=== PATIENT | female | born 1965 | race Caucasian/White ===

== ENCOUNTER → 2017-01-08 | Outpatient (CLI) | payer MEDICARE | LOC: RAD 15:55 | PROVIDERS: ATTEND Internal Medicine Critical Care Medicine | DX: R91.1 Solitary pulmonary nodule (principal) | CPT/HCPCS: 71250 ==

== ENCOUNTER → 2017-05-14 | Outpatient (CLI) | payer MEDICARE ==
--- NOTE | 2017-05-14 11:50 | RADIOLOGY REPORT (SQ) ---
EXAM DESCRIPTION: CT CHEST WITHOUT COMPLETED DATE/TIME: 05/14/2017 11:09 am REASON FOR STUDY: SOLITARY PULMONARY NODULE R91.1 SOLITARY PULMONARY NODULE COMPARISON: 01/08/2017 TECHNIQUE: CT scan performed of the chest without intravenous contrast. Images reviewed with lung, soft tissue and bone windows. Reconstructed coronal and sagittal MPR images reviewed. All images st ored on PACS. All CT scanners at this facility use dose modulation, iterative reconstruction, and/or weight based d osing when appropriate to reduce radiation dose to as low as reasonably achievable (ALARA). [facility]: Dose Right [facility]: CareDose [facility]: Dose Right [facility]: Teradose 4D [facility]: Nualight RADIATION DOSE: Up-to-date CT equipment and radiation dose reduction techniques were employed. CTDIv ol: 6.0 mGy. DLP: 248 mGy-cm. mGy. LIMITATIONS: No technical limitations. FINDINGS: LUNGS AND PLEURA: Bilateral chronic appearing changes are identified which appear stable. The previously described nodule in the right upper lobe is again identified and is less apparent serge n on the previous study. Again this could represent parenchymal scarring. On the current study ther e is some associated ground-glass opacities which may represent an acute process superimposed on the chronic underlying changes. There is a focal ground-glass opacity in the right upper lung field tera uring 7.8 mm best seen on image number 17 which was not apparent on the previous study. There is a 2 nd focal ground-glass opacity in the left mid lung field measuring 13.4 mm best seen on image number 27 which was not apparent on the previous study. A 3rd ground-glass opacity is identified in the lef t upper lung field anteriorly measuring 10.5 mm which is best seen on image number 30 and was not brian arent on the previous study. There are couple other tiny pulmonary nodules which appears stable. No acute consolidations or pleural effusions are identified. HILAR AND MEDIASTINAL STRUCTURES: No identified masses or abnormal nodes. No obvious aneurysm. HEART AND VASCULAR STRUCTURES: No aneurysm. No pericardial effusion. UPPER ABDOMEN: No significant findings. Limited exam. THYROID AND OTHER SOFT TISSUES: No masses. No adenopathy. BONES: No significant finding. HARDWARE: None in the chest. OTHER: No other significant findings. IMPRESSION: Scattered ground-glass opacities as noted above. These may represent an acute process a nd a followup chest CT scan in 6 to 12 months is recommended for further evaluation. No consolidatio ns or pleural effusions are identified. Other findings as noted above. COMMENT: Fleischner Criteria for Ground Glass Nodules: >6mm ground glass single nodule: CT 6-12 mo, then CT every 2 yr until 5 yr TECHNICAL DOCUMENTATION: JOB ID: [id number] Quality ID # [id number]: Final reports with documentation of one or more dose reduction techniques (e.g., Au tomated exposure control, adjustment of the mA and/or kV according to patient size, use of iterative reconstruction technique) 2010 [email or web address]- All Rights Reserved
== END ==
LOC: RAD 09:59
PROVIDERS: ATTEND Internal Medicine Critical Care Medicine
DX: J44.9 Chronic obstructive pulmonary disease, unspecified (principal); R91.1 Solitary pulmonary nodule; R91.8 Other nonspecific abnormal finding of lung field; R06.09 Other forms of dyspnea; Z80.1 Family history of malignant neoplasm of trachea, bronchus and lung; Z87.01 Personal history of pneumonia (recurrent); R09.02 Hypoxemia; Z72.0 Tobacco use
CPT/HCPCS: 71250

== ENCOUNTER 2019-08-21 19:11 | Inpatient (IN) | payer MEDICARE ==
[2019-08-21] MEDS ORDERED: CEFTRIAXONE 2 GM/D5W RTU 2 GM/50 ML RTUPB IV ONE (19:21)
[2019-08-21] MEDS ORDERED: AZITHROMYCIN 250 MG TABLET PO ONE (19:21)
[2019-08-21 19:44] LABS: ABSOLUTE LYMPHOCYTES (AUTO) 0.4 10^3/uL (0.5-4.7); ABSOLUTE MONOCYTES (AUTO) 0.4 10^3/uL (0.1-1.4); ABSOLUTE NEUT (AUTO) 4.7 10^3/uL (1.7-8.2); BASOPHILS % (AUTO) 0.5 % (0-2); EOSINOPHILS % (AUTO) 0.4 % (0-6); HEMATOCRIT 36.1 % (36.0-47.0); LYMPHOCYTES % (AUTO) 7.2 % (13-45); MEAN CORPUSCULAR HEMOGLOBIN 24.6 pg (27.0-33.4); MEAN CORPUSCULAR HGB CONC 30.4 g/dL (32.0-36.0); MEAN CORPUSCULAR VOLUME 81 fl (80-97); MONOCYTES % (AUTO) 7.9 % (3-13); PLATELET COUNT 233 10^3/uL (150-450); RED BLOOD COUNT 4.46 10^6/uL (3.72-5.28); RED CELL DISTRIBUTION WIDTH 15.5 % (11.5-14.0); TOTAL CELLS COUNTED % (AUTO) 100 %; WHITE BLOOD COUNT 5.6 10^3/uL (4.0-10.5)
[2019-08-21 20:11] LABS: ALBUMIN 3.1 g/dL (3.5-5.0); ALKALINE PHOSPHATASE 87 U/L (38-126); ASPARTATE AMINO TRANSFERASE 31 U/L (14-36); BILIRUBIN,DIRECT 0.1 mg/dL (0.0-0.4); BILIRUBIN,TOTAL 0.2 mg/dL (0.2-1.3); BLOOD UREA NITROGEN 13 mg/dL (7-20); CALCIUM 8.1 mg/dL (8.4-10.2); CHLORIDE 87 mmol/L (98-107); GLUCOSE 134 mg/dL (75-110); TOTAL PROTEIN 5.3 g/dL (6.3-8.2)
[2019-08-21 20:19] LABS: ANION GAP 2 (5-19)
[2019-08-21 20:21] LABS: ARTERIAL BLOOD H2CO3 3.55 mmol/L (1.05-1.35); ARTERIAL BLOOD HCO3 41.4 mmol/L (20-24); ARTERIAL BLOOD O2 SATURATION 98.2 % (94-98); ARTERIAL BLOOD PO2 154.4 mmHg (80-100); CARBON DIOXIDE 40 mmol/L (22-30)
[2019-08-21 20:23] LABS: ARTERIAL BLOOD FIO2 9L; NT PRO BNP 4350 pg/mL (5-900)
[2019-08-21 20:24] LABS: ARTERIAL BLOOD PCO2 117.8 mmHg (35-45); ARTERIAL BLOOD PH 7.16 (7.35-7.45)
[2019-08-21 20:27] LABS: TROPONIN I < 0.012 ng/mL
--- NOTE | 2019-08-21 20:48 | RADIOLOGY REPORT (SQ) ---
EXAM DESCRIPTION: CLINICAL HISTORY: 54 years Female, cough/sob COMPARISON: Chest x-ray 05/16/2015. Chest 05/14/2017. FINDINGS: Mild cardiomegaly which has increased since previous study and is probably significant because of the underlying hyperinflation. No suspicious mediastinal widening. Hyperinflation consistent with COPD/emphysema. There is mild right lower lobe infiltrate. There is mild left perihilar possibly superior segment of left lower lobe infiltrate. Previous CT chest demonstrated view focal interstitial infiltrates. IMPRESSION: 1. Cardiomegaly. Underlying COPD/emphysema. Infiltrates in the right lower lobe and left perihilar region. These could represent infectious pneumonia or more chronic interstitial process. CT may be more accurate for evaluation of lung parenchyma. 2. 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 New finding since 2014.
[2019-08-21] MEDS ORDERED: FUROSEMIDE INJ/PF 40 MG/4 ML SDV IV ONE (21:36)
[2019-08-21 21:58] LABS: APPEARANCE,URINE CLEAR; BILIRUBIN,URINE NEGATIVE (NEGATIVE); COLOR,URINE STRAW; GLUCOSE, URINE NEGATIVE (NEGATIVE); KETONES,URINE NEGATIVE (NEGATIVE); LEUKOCYTE ESTERASE,URINE NEGATIVE (NEGATIVE); NITRITE,URINE NEGATIVE (NEGATIVE); PROTEIN,URINE NEGATIVE (NEGATIVE); URINE SPECIFIC GRAVITY 1.004; UROBILINOGEN,URINE NEGATIVE mg/dL (<2.0)
[2019-08-21] MEDS ORDERED: HYDRALAZINE HCL INJ/PF 20 MG/1 ML SDV IV PRN (22:43)
[2019-08-21] MEDS ORDERED: LACTULOSE SYRUP 20 GM/30 ML UDCUP PO ONE (22:43)
[2019-08-21] MEDS ORDERED: MAG HYDROX/AL HYDROX/SIMETH SUSP 30 ML UDCUP PO PRN (22:44)
--- NOTE | 2019-08-21 22:59 | ER Document Report ---
ED General - General Chief Complaint: Breathing Difficulty Stated Complaint: RESP DISTRESS Time Seen by Provider: 08/21/19 19:16 Mode of Arrival: Medic Information source: Patient TRAVEL OUTSIDE OF THE [place] IN LAST 30 DAYS: No - HPI Notes: Patient is brought in by medic with respiratory distress. Patient is a chronic smoker with COPD. She was found by paramedics to have his O2 saturation of 78% on room air with elevated CO2. Patient was complaining of severe shortness of breath. On arrival to the emergency department patient states that she is f eeling better. In route she did receive multiple treatments and CPAP as well as Solu-Medrol and magnesium. Patient denies any history of congestive heart failure. She denies any pain. She states she has felt weak. Her symptoms have been constant and severe. They are worse with exertion and better with rest. There is no known radiation of the symptoms. She has had an increased of her baseline cough. No fevers. - Related Data Allergies/Adverse Reactions: No Known Allergies Allergy (Verified 02/18/14 03:01) Past Medical History - General Information source: Patient - Social History Smoking Status: Current Every Day Smoker Frequency of alcohol use: None Drug Abuse: None Family History: Reviewed & Not Pertinent, Hypertension Patient has suicidal ideation: No Patient has homicidal ideation: No - Past Medical History Cardiac Medical History: Reports: Hx Hypertension Denies: Hx Coronary Artery Disease, Hx Heart Attack Pulmonary Medical History: Reports: Hx Asthma, Hx Bronchitis, Hx COPD, Hx Pneumonia Neurological Medical History: Reports: Hx Seizures - ONCE 3 YEARS AGO. Denies: Hx Cerebrovascular Accident Renal/ Medical History: Reports: Hx Kidney Stones Musculoskeletal Medical History: Reports Hx Arthritis Psychiatric Medical History: Reports: Hx Bipolar Disorder Past Surgical History: Reports: Hx Section, Hx Orthopedic Surgery - right knee. Denies: Hx Hysterectomy, Hx Pacemaker - Immunizations Hx Diphtheria, Pertussis, Tetanus Vaccination: No Hx Pneumococcal Vaccination: 01/12/13 Review of Systems - Review of Systems Constitutional: Malaise, Weakness Cardiovascular: denies: Chest pain, Palpitations Respiratory: Cough, Short of breath Gastrointestinal: denies: Abdominal pain, Diarrhea, Vomiting -: Yes All other systems reviewed and negative Physical Exam - Vital signs Vitals: Resp Pulse Ox 20 99 08/21/19 19:31 08/21/19 19:31 Interpretation: Tachycardic, Hypoxic - General General appearance: Alert In distress: Mild - HEENT Head: Normocephalic, Atraumatic Eyes: Normal Pupils: PERRL - Respiratory Respiratory status: Respiratory distress Chest status: Nontender Breath sounds: Decreased air movement, Rhonchi, Wheezing Chest palpation: Normal - Cardiovascular Rhythm: Tachycardia Heart sounds: Normal auscultation Murmur: No - Abdominal Inspection: Normal Distension: No distension Bowel sounds: Normal Tenderness: Nontender Organomegaly: No organomegaly - Back Back: Normal, Nontender - Extremities General upper extremity: Normal inspection, Nontender, Normal color, Normal ROM, Normal temperature General lower extremity: Normal inspection, Nontender, Normal color, Normal ROM, Normal temperature, Normal weight bearing. No: Alejo's sign - Neurological Neuro grossly intact: Yes Cognition: Normal Orientation: AAOx4 Sprague Coma Scale Eye Opening: Spontaneous Jackeline Coma Scale Verbal: Oriented Sprague Coma Scale Motor: Obeys Commands Sprague Coma Scale Total: 15 Speech: Normal Motor strength normal: LUE, RUE, LLE, RLE Sensory: Normal - Psychological Associated symptoms: Normal affect, Normal mood - Skin Skin Temperature: Warm Skin Moisture: Dry Skin Color: Normal Course - Re-evaluation Re-evalutation: 08/21/19 23:03 Patient arrived with some mild tachycardia and tachypnea. She was better after the treatments in the ambulance. Patient still had wheezing in all hunt. She had a pH of 7.16. Her CO2 was 117. She was mentating normally with a saturation of 94% on 4 L. However due to the severe hypercapnia I placed the patient on BiPAP. She also had a mixed picture of infectious versus possible heart failure. It is possible she may also have both processes. Therefore I have treated the patient with Lasix and antibiotics. I have discussed the case with the hospitalist who is accepted her for admission. I have ordered a CTA of the chest and this is currently pending. Hospitalist is aware and will follow up on the results. Patient states that she is currently feeling much better. She is doing well on BiPAP with good oxygen saturations. She is hemodynamically stable. - Vital Signs Vital signs: Temp Pulse Resp BP Pulse Ox 98.2 F 18 133/72 H 100 08/21/19 19:46 08/21/19 21:35 08/21/19 21:35 08/21/19 21:35 - Laboratory Result Diagrams: 08/21/19 19:21 08/21/19 19:21 Laboratory results interpreted by me: 08/21/19 08/21/19 08/21/19 19:21 19:21 19:21 Hgb 11.0 L MCH 24.6 L MCHC 30.4 L RDW 15.5 H Lymph % (Auto) 7.2 L Absolute Lymphs (auto) 0.4 L Seg Neutrophils % 84.0 H Carbonic Acid ABG pH ABG pCO2 ABG pO2 ABG HCO3 ABG Total CO2 ABG O2 Saturation Sodium 129.1 L Chloride 87 L Carbon Dioxide 40 H* Anion Gap 2 L Glucose 134 H POC Glucose Lactic Acid Calcium 8.1 L NT-Pro-B Natriuret Pep 4350 H Total Protein 5.3 L Albumin 3.1 L 08/21/19 08/21/19 08/21/19 19:21 20:04 20:33 Hgb MCH MCHC RDW Lymph % (Auto) Absolute Lymphs (auto) Seg Neutrophils % Carbonic Acid 3.55 H ABG pH 7.16 L* ABG pCO2 117.8 H* ABG pO2 154.4 H ABG HCO3 41.4 H ABG Total CO2 45.0 H ABG O2 Saturation 98.2 H Sodium Chloride Carbon Dioxide Anion Gap Glucose POC Glucose 140 H Lactic Acid 0.6 L Calcium NT-Pro-B Natriuret Pep Total Protein Albumin - Diagnostic Test Radiology reviewed: Image reviewed, Reports reviewed - EKG Interpretation by Me EKG shows normal: Sinus rhythm Rate: Tachycardia - 105 Rhythm: NSR Hartline/QRS: RBBB - incomplete Critical Care Note - Critical Care Note Total time excluding time spent on procedures (mins): 50 Comments: Approximately 50 minutes of critical care time were spent on this patient. This included multiple reassessments. Including discussing the case with patient and family. It including discussing the case with consultants. It included reviewing laboratories and images. It also included reviewing old records. Discharge - Discharge Clinical Impression: COPD exacerbation Respiratory failure Qualifiers: Chronicity: acute Respiratory failure complication: hypercapnia Qualified Code(s): J96.02 - Acute respiratory failure with hypercapnia Condition: Serious Disposition: ADMITTED INPATIENT Admitting Provider: Guanaco (Hospitalist) Unit Admitted: [facility]
--- NOTE | 2019-08-21 23:22 | RADIOLOGY REPORT (SQ) ---
EXAM DESCRIPTION: CT CHEST ANGIOGRAPHY WITHOUT THEN WITH IV CONTRAST, three-dimensional reconstructions COMPLETED DATE/TME: 08/21/2019 21:37 CLINICAL HISTORY: 54 years, Female, sob/cough This exam was performed according to our departmental dose-optimization program which includes automated exposure control, adjustment of the mA and/or kVp according to patient size and/or use of iterative reconstruction technique where applicable. Compared to CT chest dated 05/14/2017. FINDINGS: Thyroid is within normal limits. Aorta is mildly atherosclerotic without significant evidence for aneurysm or dissection. Pulmonary arteries are well opacified with no significant filling defects in the pulmonary arterial tree to suggest acute pulmonary embolism. No significant pericardial effusions. Trace layering right pleural effusion. Visualized upper abdominal organs are unremarkable. Evaluation of the lung parenchyma demonstrates extensive diffuse emphysematous changes. No suspicious lung nodule or mass. No consolidations to suggest pneumonia. Mild right basilar atelectatic changes. IMPRESSION: No acute pulmonary embolism. Trace right pleural effusion. Extensive emphysematous changes.
[2019-08-21] MEDS ORDERED: FLUTICASONE NASAL SPRAY 50 MCG/SPRY 120 SPRAY/16 GM NASL ONE (23:30)
[2019-08-21] MEDS ORDERED: PREDNISONE 20 MG TABLET PO ONE (23:30)
[2019-08-21] MEDS ORDERED: FLUTICASONE NASAL SPRAY 50 MCG/SPRY 120 SPRAY/16 GM ONE (23:39)
--- NOTE | 2019-08-22 00:25 | EKG REPORT ---
SEVERITY:- ABNORMAL ECG - SINUS TACHYCARDIA INCOMPLETE RIGHT BUNDLE BRANCH BLOCK : Confirmed by: Sarika Tafoya MD 22-Aug-2019 00:24:40
[2019-08-22 02:10] LABS: URINE AMPHETAMINES SCREEN NEGATIVE; URINE BARBITURATES SCREEN NEGATIVE; URINE BENZODIAZEPINES SCREEN NEGATIVE; URINE COCAINE SCREEN NEGATIVE; URINE MARIJUANA (THC) SCREEN UNCONFIRMED POSITIVE; URINE METHADONE SCREEN NEGATIVE; URINE PHENCYCLIDINE SCREEN NEGATIVE
[2019-08-22 02:31] LABS: ARTERIAL BLOOD BASE EXCESS 12.2 mmol/L; ARTERIAL BLOOD H2CO3 2.52 mmol/L (1.05-1.35); ARTERIAL BLOOD HCO3 41.6 mmol/L (20-24); ARTERIAL BLOOD O2 SATURATION 96.4 % (94-98); ARTERIAL BLOOD PH 7.31 (7.35-7.45); ARTERIAL BLOOD PO2 97.2 mmHg (80-100); ARTERIAL BLOOD TOTAL CO2 44.2 mmol/L (21-25)
[2019-08-22 02:33] LABS: ARTERIAL BLOOD FIO2 40%
[2019-08-22 02:35] LABS: ARTERIAL BLOOD PCO2 83.8 mmHg (35-45)
--- NOTE | 2019-08-22 04:22 | PDOC H&P ---
History of Present Illness Admission Date/PCP: 08/21/19 22:57 Patient complains of: Shortness of breath History of Present Illness: JULIO BACA is a 54 year old female with a past medical history of oxygen dependent COPD, tobacco dependence, bipolar hypertension and dyslipidemia. She presents with several days of shortness of breath prompting evaluation emergency room where she is found to have acute on chronic hypercapnic hypoxic respiratory failure, right lower lobe pneumonia, congestive heart failure and hyponatremia. She started on BiPAP and referred to the hospitalist for admission. She denies current medications. She admits symptom improvement on BiPAP Past Medical History Cardiac Medical History: Reports: Hypertension Denies: Coronary Artery Disease, Myocardial Infarction Pulmonary Medical History: Reports: Asthma, Bronchitis, Chronic Obstructive Pulmonary Disease (COPD), Pneumonia Neurological Medical History: Reports: Seizures - ONCE 3 YEARS AGO Musculoskeltal Medical History: Reports: Arthritis Psychiatric Medical History: Reports: Bipolar Disorder, Depression, Tobacco Dependency Hematology: Denies: Anemia Past Surgical History Past Surgical History: Reports: Section, Orthopedic Surgery - right knee Denies: Hysterectomy, Pacemaker Social History Information Source: Patient, [facility] Records Smoking Status: Current Every Day Smoker Cigarettes Packs Per Day: 0.5 Number of Years Smokin Last Time Smoked: Aug 21, 2019 Frequency of Alcohol Use: None Hx Recreational Drug Use: Yes Drugs: Marijuana Hx Prescription Drug Abuse: No - Advance Directive Resuscitation Status: Full Code Family History Family History: COPD, Hypertension Parental Family History Reviewed: Yes Children Family History Reviewed: Yes Sibling(s) Family History Reviewed.: Yes Medication/Allergy Home Medications: Bupropion HCl [Wellbutrin] 75 mg PO 10/13/11 Escitalopram Oxalate [Lexapro] 5 mg PO 10/13/11 Invega 10/13/11 Lisinopril/Hydrochlorothiazide [Zestoretic 20-12.5 mg Tablet] 1 each PO DAILY 01/11/13 Simvastatin [Zocor 40 mg Tablet] 40 mg PO QHS 01/11/13 Risperidone [Risperdal] 5 mg PO 02/15/13 Albuterol Sulfate [Albuterol Sulfate 2.5mg/3 mL] 1 vial IH Q4 PRN #30 vial 04/22/13 Albuterol Sulfate [Proair HFA Inhalation Aerosol 8.5 gm MDI] 2 puff IH Q4H PRN #1 mdi 04/22/13 Clonidine HCl [Catapres 0.2 mg Tablet] 0.2 mg PO 04/22/13 Levofloxacin [Levaquin 750 mg Tablet] 750 mg PO DAILY #5 tablet 05/17/15 Methylprednisolone [Medrol Dosepack (4 mg/Tab) 21 Tab/Dosepak] 4 mg PO ASDIR PRN #21 tab.ds.pk 05/17/15 Allergies/Adverse Reactions: No Known Allergies Allergy (Verified 02/18/14 03:01) Review of Systems ROS unobtainable: Due to mental status Physical Exam Vital Signs: Temp Pulse Resp BP Pulse Ox 97.7 F 20 163/87 H 96 08/22/19 01:15 08/22/19 01:15 08/22/19 01:15 08/22/19 01:15 Intake & Output 08/20/19 08/21/19 08/22/19 11:59 11:59 11:59 Intake Total 50 Balance 50 Weight 64.2 kg General appearance: PRESENT: cooperative, disheveled, severe distress, well- developed, other - Chronically ill-appearing, appears much older than stated age. ABSENT: well-nourished Head exam: PRESENT: atraumatic, normocephalic Eye exam: PRESENT: conjunctiva pink, EOMI, PERRLA. ABSENT: scleral icterus Ear exam: PRESENT: normal external ear exam Mouth exam: PRESENT: moist, tongue midline Neck exam: ABSENT: carotid bruit, JVD, lymphadenopathy, thyromegaly Respiratory exam: PRESENT: accessory muscle use, crackles, prolonged expiratory phas, rales, retraction, tachypnea Cardiovascular exam: PRESENT: RRR. ABSENT: diastolic murmur, rubs, systolic murmur Pulses: PRESENT: normal dorsalis pedis pul Vascular exam: PRESENT: normal capillary refill GI/Abdominal exam: PRESENT: normal bowel sounds, soft. ABSENT: distended, guarding, mass, organolmegaly, rebound, tenderness Rectal exam: PRESENT: deferred Extremities exam: PRESENT: full ROM. ABSENT: calf tenderness, clubbing, pedal edema Neurological exam: PRESENT: alert, awake, oriented to person, oriented to place, oriented to time, oriented to situation, CN II-XII grossly intact. ABSENT: motor sensory deficit Psychiatric exam: PRESENT: appropriate affect, normal mood. ABSENT: homicidal ideation, suicidal ideation Skin exam: PRESENT: dry, intact, warm. ABSENT: cyanosis, rash Results Laboratory Results: 08/21/19 19:21 08/21/19 19:21 08/21/19 08/21/19 08/21/19 19:21 19:21 19:21 WBC 5.6 RBC 4.46 Hgb 11.0 L Hct 36.1 MCV 81 MCH 24.6 L MCHC 30.4 L RDW 15.5 H Plt Count 233 Seg Neutrophils % 84.0 H Carbonic Acid 3.55 H HCO3/H2CO3 Ratio 11:1 ABG pH 7.16 L* ABG pCO2 117.8 H* ABG pO2 154.4 H ABG HCO3 41.4 H ABG O2 Saturation 98.2 H ABG Base Excess 9.0 FiO2 9L Sodium 129.1 L Potassium 5.0 Chloride 87 L Carbon Dioxide 40 H* Anion Gap 2 L BUN 13 Creatinine 0.86 Est GFR ( Amer) > 60 Glucose 134 H Lactic Acid Calcium 8.1 L Magnesium Total Bilirubin 0.2 AST 31 Alkaline Phosphatase 87 Total Protein 5.3 L Albumin 3.1 L TSH Urine Color Urine Appearance Urine pH Ur Specific Isabel Urine Protein Urine Glucose (UA) Urine Ketones Urine Blood Urine Nitrite Ur Leukocyte Esterase Urine WBC (Auto) Urine RBC (Auto) 08/21/19 08/21/19 08/21/19 19:21 19:21 20:33 WBC RBC Hgb Hct MCV MCH MCHC RDW Plt Count Seg Neutrophils % Carbonic Acid HCO3/H2CO3 Ratio ABG pH ABG pCO2 ABG pO2 ABG HCO3 ABG O2 Saturation ABG Base Excess FiO2 Sodium Potassium Chloride Carbon Dioxide Anion Gap BUN Creatinine Est GFR ( Amer) Glucose Lactic Acid 0.6 L Calcium Magnesium 2.6 H Total Bilirubin AST Alkaline Phosphatase Total Protein Albumin TSH 0.51 Urine Color Urine Appearance Urine pH Ur Specific Isabel Urine Protein Urine Glucose (UA) Urine Ketones Urine Blood Urine Nitrite Ur Leukocyte Esterase Urine WBC (Auto) Urine RBC (Auto) 08/21/19 08/22/19 21:46 01:50 WBC RBC Hgb Hct MCV MCH MCHC RDW Plt Count Seg Neutrophils % Carbonic Acid 2.52 H HCO3/H2CO3 Ratio 16:1 ABG pH 7.31 L ABG pCO2 83.8 H* ABG pO2 97.2 ABG HCO3 41.6 H ABG O2 Saturation 96.4 ABG Base Excess 12.2 FiO2 40% Sodium Potassium Chloride Carbon Dioxide Anion Gap BUN Creatinine Est GFR ( Amer) Glucose Lactic Acid Calcium Magnesium Total Bilirubin AST Alkaline Phosphatase Total Protein Albumin TSH Urine Color STRAW Urine Appearance CLEAR Urine pH 6.0 Ur Specific Isabel 1.004 Urine Protein NEGATIVE Urine Glucose (UA) NEGATIVE Urine Ketones NEGATIVE Urine Blood NEGATIVE Urine Nitrite NEGATIVE Ur Leukocyte Esterase NEGATIVE Urine WBC (Auto) 1 Urine RBC (Auto) 1 08/21/19 19:21 Troponin I < 0.012 NT-Pro-B Natriuret Pep 4350 H Impressions: Chest X-Ray 08/21/19 19:20 IMPRESSION: 1. Cardiomegaly. Underlying COPD/emphysema. Infiltrates in the right lower lobe and left perihilar region. These could represent infectious pneumonia or more chronic interstitial process. CT may be more accurate for evaluation of lung parenchyma. 2. 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 New finding since 2014. Chest/Abdomen CTA 08/21/19 21:37 IMPRESSION: No acute pulmonary embolism. Trace right pleural effusion. Extensive emphysematous changes. Assessment and Plan - Diagnosis (1) PNA (pneumonia) Is this a current diagnosis for this admission?: Yes Plan: Pneumonia care set deployed, empiric antibiotics, supplemental oxygen with BiPAP. Follow-up CBC and blood culture (2) Respiratory failure Qualifiers: Chronicity: acute Respiratory failure complication: hypercapnia Qualified Code(s): J96.02 - Acute respiratory failure with hypercapnia Is this a current diagnosis for this admission?: Yes Plan: Severe acute on chronic, hypercapnic and hypoxic respiratory failure. BiPAP, albuterol and Atrovent, Solu-Medrol, flutter valve and incentive spirometry (3) Congestive heart failure Is this a current diagnosis for this admission?: Yes Plan: Suspect severe pulmonary hypertension and cor pulmonale. Follow-up echo (4) COPD exacerbation Is this a current diagnosis for this admission?: Yes Plan: Secondary to #1 (5) Hyponatremia Is this a current diagnosis for this admission?: Yes Plan: Appears hypovolemic, hypotonic, IV fluid challenge, follow-up chemistry - Time Time Spent with patient: 25-34 minutes - Inpatient Certification Medical Necessity: Need Close Monitoring Due to Risk of Patient Decompensation
[2019-08-22 05:52] LABS: BLOOD UREA NITROGEN 10 mg/dL (7-20); CALCIUM 8.2 mg/dL (8.4-10.2); CHLORIDE 86 mmol/L (98-107); GLUCOSE 109 mg/dL (75-110); POTASSIUM 5.3 mmol/L (3.6-5.0)
[2019-08-22 06:00] LABS: ANION GAP 5 (5-19)
[2019-08-22] MEDS: HEPARIN SOD (PORCINE) 5,000 UNIT/ML 1 ML VIAL SUBCUT SCH ×3 (06:01→21:41)
[2019-08-22] MEDS: ACETAMINOPHEN 325 MG TABLET PO PRN ×3 (06:05→19:00)
[2019-08-22 06:23] LABS: CARBON DIOXIDE 41 mmol/L (22-30)
[2019-08-22 06:47] LABS: ABSOLUTE LYMPHOCYTES (AUTO) 0.2 10^3/uL (0.5-4.7); ABSOLUTE MONOCYTES (AUTO) 0.1 10^3/uL (0.1-1.4); BASOPHILS % (AUTO) 0.1 % (0-2); HEMATOCRIT 36.7 % (36.0-47.0); HEMOGLOBIN 11.3 g/dL (12.0-15.5); MEAN CORPUSCULAR HEMOGLOBIN 24.7 pg (27.0-33.4); MEAN CORPUSCULAR HGB CONC 30.9 g/dL (32.0-36.0); MEAN CORPUSCULAR VOLUME 80 fl (80-97); MONOCYTES % (AUTO) 3.3 % (3-13); PLATELET COUNT 257 10^3/uL (150-450); RED CELL DISTRIBUTION WIDTH 15.6 % (11.5-14.0); SEGMENTED NEUTROPHILS % (AUTO) 89.6 % (42-78); TOTAL CELLS COUNTED % (AUTO) 100 %
[2019-08-22 07:14] LABS: WHITE BLOOD COUNT 2.3 10^3/uL (4.0-10.5)
[2019-08-22] MEDS ORDERED: INFLUENZA QUAD (6MOS+) 2019-20 VAC 0.5 ML SYR IM ONE ×2 (08:52→15:15)
[2019-08-22] MEDS: FLUTICASONE NASAL SPRAY 50 MCG/SPRY 120 SPRAY/16 GM NASL SCH ×2 (09:19→21:41)
[2019-08-22] MEDS: PREDNISONE 20 MG TABLET PO SCH ×2 (09:19→17:26)
[2019-08-22] MEDS: PSYLLIUM SEED-SF 5.85 GM PACKET PO SCH (09:20)
--- NOTE | 2019-08-22 15:07 | PDOC PROGRESS REPORT ---
Subjective Progress Note for:: 08/22/19 Subjective:: BiPAP mask is leaking. She actually appears fairly comfortable. She is surprisingly mentating clearly despite PCO2 of 83. Reason For Visit: RESP FAILURE Physical Exam Vital Signs: Temp Pulse Resp BP Pulse Ox 98.1 F 99 17 149/69 H 90 L 08/22/19 08:51 08/22/19 08:51 08/22/19 12:23 08/22/19 08:51 08/22/19 12:23 Intake & Output 08/21/19 08/22/19 08/23/19 06:59 06:59 06:59 Intake Total 50 Balance 50 Weight 56.8 kg General appearance: PRESENT: cooperative, mild distress, thin Head exam: PRESENT: atraumatic, normocephalic Eye exam: PRESENT: conjunctiva pink, EOMI. ABSENT: scleral icterus Ear exam: PRESENT: normal external ear exam. ABSENT: bleeding, drainage Mouth exam: PRESENT: other - BiPAP mask in place Respiratory exam: PRESENT: prolonged expiratory phas, rhonchi, symmetrical, tachypnea, wheezes - Bilateral especially expiratory. ABSENT: stridor Cardiovascular exam: PRESENT: RRR, +S1, +S2 GI/Abdominal exam: PRESENT: normal bowel sounds, soft. ABSENT: distended, guarding, tenderness Extremities exam: PRESENT: full ROM. ABSENT: calf tenderness, pedal edema Musculoskeletal exam: PRESENT: ambulatory, normal inspection Neurological exam: PRESENT: alert, awake, oriented to person, oriented to place, oriented to time, oriented to situation, CN II-XII grossly intact Psychiatric exam: PRESENT: flat affect. ABSENT: agitated, anxious Focused psych exam: ABSENT: delusional, restlessness Results Laboratory Results: 08/22/19 06:06 08/22/19 05:15 08/21/19 08/21/19 08/21/19 19:21 19:21 19:21 WBC 5.6 RBC 4.46 Hgb 11.0 L Hct 36.1 MCV 81 MCH 24.6 L MCHC 30.4 L RDW 15.5 H Plt Count 233 Seg Neutrophils % 84.0 H Carbonic Acid 3.55 H HCO3/H2CO3 Ratio 11:1 ABG pH 7.16 L* ABG pCO2 117.8 H* ABG pO2 154.4 H ABG HCO3 41.4 H ABG O2 Saturation 98.2 H ABG Base Excess 9.0 FiO2 9L Sodium 129.1 L Potassium 5.0 Chloride 87 L Carbon Dioxide 40 H* Anion Gap 2 L BUN 13 Creatinine 0.86 Est GFR ( Amer) > 60 Glucose 134 H Lactic Acid Calcium 8.1 L Magnesium Total Bilirubin 0.2 AST 31 Alkaline Phosphatase 87 Total Protein 5.3 L Albumin 3.1 L TSH Urine Color Urine Appearance Urine pH Ur Specific [place] Urine Protein Urine Glucose (UA) Urine Ketones Urine Blood Urine Nitrite Ur Leukocyte Esterase Urine WBC (Auto) Urine RBC (Auto) 08/21/19 08/21/19 08/21/19 19:21 19:21 20:33 WBC RBC Hgb Hct MCV MCH MCHC RDW Plt Count Seg Neutrophils % Carbonic Acid HCO3/H2CO3 Ratio ABG pH ABG pCO2 ABG pO2 ABG HCO3 ABG O2 Saturation ABG Base Excess FiO2 Sodium Potassium Chloride Carbon Dioxide Anion Gap BUN Creatinine Est GFR ( Amer) Glucose Lactic Acid 0.6 L Calcium Magnesium 2.6 H Total Bilirubin AST Alkaline Phosphatase Total Protein Albumin TSH 0.51 Urine Color Urine Appearance Urine pH Ur Specific [place] Urine Protein Urine Glucose (UA) Urine Ketones Urine Blood Urine Nitrite Ur Leukocyte Esterase Urine WBC (Auto) Urine RBC (Auto) 08/21/19 08/22/19 08/22/19 21:46 01:50 05:15 WBC Cancelled RBC Cancelled Hgb Cancelled Hct Cancelled MCV Cancelled MCH Cancelled MCHC Cancelled RDW Cancelled Plt Count Cancelled Seg Neutrophils % Cancelled Carbonic Acid 2.52 H HCO3/H2CO3 Ratio 16:1 ABG pH 7.31 L ABG pCO2 83.8 H* ABG pO2 97.2 ABG HCO3 41.6 H ABG O2 Saturation 96.4 ABG Base Excess 12.2 FiO2 40% Sodium Potassium Chloride Carbon Dioxide Anion Gap BUN Creatinine Est GFR ( Amer) Glucose Lactic Acid Calcium Magnesium Total Bilirubin AST Alkaline Phosphatase Total Protein Albumin TSH Urine Color STRAW Urine Appearance CLEAR Urine pH 6.0 Ur Specific [place] 1.004 Urine Protein NEGATIVE Urine Glucose (UA) NEGATIVE Urine Ketones NEGATIVE Urine Blood NEGATIVE Urine Nitrite NEGATIVE Ur Leukocyte Esterase NEGATIVE Urine WBC (Auto) 1 Urine RBC (Auto) 1 08/22/19 08/22/19 05:15 06:06 WBC 2.3 L D RBC 4.60 Hgb 11.3 L Hct 36.7 MCV 80 MCH 24.7 L MCHC 30.9 L RDW 15.6 H Plt Count 257 Seg Neutrophils % 89.6 H Carbonic Acid HCO3/H2CO3 Ratio ABG pH ABG pCO2 ABG pO2 ABG HCO3 ABG O2 Saturation ABG Base Excess FiO2 Sodium 132.3 L Potassium 5.3 H Chloride 86 L Carbon Dioxide 41 H* Anion Gap 5 BUN 10 Creatinine 0.74 Est GFR ( Amer) > 60 Glucose 109 Lactic Acid Calcium 8.2 L Magnesium Total Bilirubin AST Alkaline Phosphatase Total Protein Albumin TSH Urine Color Urine Appearance Urine pH Ur Specific [place] Urine Protein Urine Glucose (UA) Urine Ketones Urine Blood Urine Nitrite Ur Leukocyte Esterase Urine WBC (Auto) Urine RBC (Auto) 08/21/19 19:21 Troponin I < 0.012 NT-Pro-B Natriuret Pep 4350 H Impressions: Chest X-Ray 08/21/19 19:20 IMPRESSION: 1. Cardiomegaly. Underlying COPD/emphysema. Infiltrates in the right lower lobe and left perihilar region. These could represent infectious pneumonia or more chronic interstitial process. CT may be more accurate for evaluation of lung parenchyma. 2. 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 New finding since 2014. Chest/Abdomen CTA 08/21/19 21:37 IMPRESSION: No acute pulmonary embolism. Trace right pleural effusion. Extensive emphysematous changes. Assessment and Plan - Diagnosis (1) PNA (pneumonia) Is this a current diagnosis for this admission?: Yes (2) Respiratory failure Qualifiers: Chronicity: acute Respiratory failure complication: hypercapnia Qualified Code(s): J96.02 - Acute respiratory failure with hypercapnia Is this a current diagnosis for this admission?: Yes (3) Congestive heart failure Qualifiers: Heart failure type: unspecified Is this a current diagnosis for this admission?: Yes (4) COPD exacerbation Is this a current diagnosis for this admission?: Yes (5) Hyponatremia Is this a current diagnosis for this admission?: Yes (6) Hypertension Qualifiers: Hypertension type: essential hypertension Qualified Code(s): I10 - Essential (primary) hypertension Is this a current diagnosis for this admission?: Yes - Summary Assessment: * Pneumonia-pneumonia order set instituted. IV antibiotics, steroids, supplemental oxygen as well as nebulizer treatments. * Acute on chronic respiratory failure with hypoxia and hypercapnia-PCO2 was 118 on admission. This morning she in fact is resting comfortably and mentating fairly clearly with a PCO2 of 83. She is wearing her BiPAP. This likely indicates her baseline PCO2 above 50. Continue current treatment plan. * COPD exacerbation-see plan above * Hyponatremia-IV fluids. Monitor sodium. * Congestive heart failure-echocardiogram has been ordered. Will better be able to delineate etiology and treatment plan once this information is available. * Hypertension-continue lisinopril. She may benefit from beta-blockade for her congestive heart failure. - Time Time Spent with patient: 15-24 minutes Medications reviewed and adjusted accordingly: Yes Anticipated discharge: Home
[2019-08-22] MEDS: NICOTINE 21 MG/24 HR PATCH.TD24 TD SCH (15:32)
[2019-08-22] MEDS: CEFTRIAXONE 1 GM/D5W RTU 1 GM/50 ML RTUPB IV SCH (20:39)
[2019-08-22] MEDS: AZITHROMYCIN 500 MG in DEXTROSE 5%-WATER 250 ML IV SCH (21:33)
[2019-08-23] MEDS: ACETAMINOPHEN 325 MG TABLET PO PRN (03:29)
[2019-08-23] MEDS: HEPARIN SOD (PORCINE) 5,000 UNIT/ML 1 ML VIAL SUBCUT SCH ×3 (06:16→21:23)
[2019-08-23] MEDS: NICOTINE 21 MG/24 HR PATCH.TD24 TD SCH (09:05)
[2019-08-23] MEDS: PSYLLIUM SEED-SF 5.85 GM PACKET PO SCH (09:05)
[2019-08-23] MEDS: PREDNISONE 20 MG TABLET PO SCH ×2 (09:05→17:47)
[2019-08-23] MEDS: FLUTICASONE NASAL SPRAY 50 MCG/SPRY 120 SPRAY/16 GM NASL SCH ×2 (09:05→21:22)
[2019-08-23] MEDS: METOPROLOL SUCCINATE 25 MG TAB.SR.24H PO SCH (09:37)
[2019-08-23] MEDS: LISINOPRIL 10 MG TABLET PO SCH (09:37)
[2019-08-23] MEDS: CITALOPRAM HYDROBROMIDE 20 MG TABLET PO SCH (09:37)
[2019-08-23] MEDS: BUPROPION HCL 100 MG TABLET PO SCH ×3 (09:37→17:47)
[2019-08-23] MEDS: ARIPIPRAZOLE 5 MG TABLET PO SCH (09:37)
[2019-08-23] MEDS: RISPERIDONE 1 MG TABLET PO SCH ×2 (09:37→21:23)
[2019-08-23] MEDS: TIOTROPIUM BROMIDE DPI 5 CAP/KIT (18 MCG/CAP) IH SCH (09:38)
[2019-08-23] MEDS ORDERED: (PENDING PHARMACY ID) (Citalopram Hydrobromide [Celexa 40 Mg Tablet] 40 MG) PO SCH (10:00)
[2019-08-23] MEDS ORDERED: (PENDING PHARMACY ID) (Lisinopril [Prinivil 40 Mg Tablet] 20 MG) PO SCH (10:00)
[2019-08-23] MEDS ORDERED: (PENDING PHARMACY ID) (Risperidone [Risperdal] 3 MG) PO SCH (10:00)
[2019-08-23] MEDS: IPRATROPIUM/ALBUTEROL 0.5-2.5 MG/3 ML AMPUL NEB SCH ×2 (13:43→20:42)
--- NOTE | 2019-08-23 14:16 | PDOC PROGRESS REPORT ---
Subjective Progress Note for:: 08/23/19 Subjective:: The patient is resting comfortably. BiPAP mask is displaced as she is sipping fluids. She reports feeling better and is beginning to question when she can go home. Reason For Visit: RESP FAILURE Physical Exam Vital Signs: Temp Pulse Resp BP Pulse Ox 97.7 F 77 18 146/79 H 96 08/23/19 11:44 08/23/19 11:44 08/23/19 11:44 08/23/19 11:44 08/23/19 11:44 Intake & Output 08/22/19 08/23/19 08/24/19 06:59 06:59 06:59 Intake Total 50 2410 Output Total 1300 Balance 50 1110 Weight 56.8 kg 58.3 kg General appearance: PRESENT: no acute distress, cooperative, well-developed Mouth exam: PRESENT: moist, tongue midline Teeth exam: PRESENT: poor dentation Respiratory exam: PRESENT: prolonged expiratory phas, wheezes - Still with faint expiratory wheezes bilaterally. ABSENT: rales, rhonchi Cardiovascular exam: PRESENT: RRR, +S1, +S2 GI/Abdominal exam: PRESENT: normal bowel sounds, soft. ABSENT: distended, tenderness Extremities exam: PRESENT: full ROM. ABSENT: joint swelling, pedal edema Musculoskeletal exam: PRESENT: normal inspection Neurological exam: PRESENT: alert, awake, oriented to person, oriented to place, oriented to time, oriented to situation, CN II-XII grossly intact Psychiatric exam: PRESENT: appropriate affect. ABSENT: agitated, anxious Focused psych exam: ABSENT: delusional, restlessness Results Laboratory Results: 08/22/19 06:06 08/22/19 05:15 08/21/19 21:46 Clean Catch Midstream Urine Culture - Final Mixed Urogenital Indira 08/21/19 19:21 Troponin I < 0.012 NT-Pro-B Natriuret Pep 4350 H Impressions: Chest X-Ray 08/21/19 19:20 IMPRESSION: 1. Cardiomegaly. Underlying COPD/emphysema. Infiltrates in the right lower lobe and left perihilar region. These could represent infectious pneumonia or more chronic interstitial process. CT may be more accurate for evaluation of lung parenchyma. 2. 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 New finding since 2014. Chest/Abdomen CTA 08/21/19 21:37 IMPRESSION: No acute pulmonary embolism. Trace right pleural effusion. Extensive emphysematous changes. Assessment and Plan - Diagnosis (1) PNA (pneumonia) Is this a current diagnosis for this admission?: Yes (2) Respiratory failure Qualifiers: Chronicity: acute Respiratory failure complication: hypercapnia Qualified Code(s): J96.02 - Acute respiratory failure with hypercapnia Is this a current diagnosis for this admission?: Yes (3) Congestive heart failure Qualifiers: Heart failure type: unspecified Is this a current diagnosis for this admission?: Yes (4) COPD exacerbation Is this a current diagnosis for this admission?: Yes (5) Hyponatremia Is this a current diagnosis for this admission?: Yes (6) Hypertension Qualifiers: Hypertension type: essential hypertension Qualified Code(s): I10 - Essential (primary) hypertension Is this a current diagnosis for this admission?: Yes (7) Hyperkalemia Is this a current diagnosis for this admission?: Yes - Plan Summary Summary: * Pneumonia-pneumonia order set instituted. IV antibiotics, steroids, supplemental oxygen as well as nebulizer treatments. * Acute on chronic respiratory failure with hypoxia and hypercapnia-PCO2 was 118 on admission. This morning she in fact is resting comfortably and mentating fairly clearly with a PCO2 of 83. She is wearing her BiPAP. This likely indicates her baseline PCO2 above 50. Continue current treatment plan. * COPD exacerbation-see plan above * Hyponatremia-IV fluids. Monitor sodium. * Congestive heart failure-echocardiogram has been ordered. Will better be able to delineate etiology and treatment plan once this information is available. * Hypertension-continue lisinopril. She may benefit from beta-blockade for her congestive heart failure. 08/23/2019-we will continue to wean from BiPAP. I have ordered nasal cannula with a repeat blood gas in approximately 2 to 3 hours. The patient should remain on BiPAP overnight for tonight. We will continue gentle fluids to monitor her sodium and possibly correct the hyperkalemia. We will continue to monitor electrolytes. The echocardiogram results are not available to better delineate congestive failure. I did add low-dose beta-kishor to her lisinopril for congestive heart failure. Nebulizers and steroids for her COPD. I discussed adjusting oxygen flow to keep oxygen saturation between 88 and 92%. - Time Time Spent with patient: 15-24 minutes Medications reviewed and adjusted accordingly: Yes Anticipated discharge: Home with Homehealth
[2019-08-23] MEDS: CEFTRIAXONE 1 GM/D5W RTU 1 GM/50 ML RTUPB IV SCH (17:48)
[2019-08-23 18:13] LABS: ARTERIAL BLOOD H2CO3 2.31 mmol/L (1.05-1.35); ARTERIAL BLOOD HCO3 43.6 mmol/L (20-24); ARTERIAL BLOOD O2 SATURATION 93.5 % (94-98); ARTERIAL BLOOD PH 7.37 (7.35-7.45); ARTERIAL BLOOD PO2 72.9 mmHg (80-100)
[2019-08-23 18:14] LABS: ARTERIAL BLOOD FIO2 3L
[2019-08-23 18:15] LABS: ARTERIAL BLOOD PCO2 76.8 mmHg (35-45)
--- NOTE | 2019-08-23 20:33 | XCELERA REPORT ---
[address] [address] Transthoracic Echocardiogram Report Name: JULIO BACA Age: 54 yrs Gender: Female : 1965 Patient Status: Inpatient Patient Location: [address] [place] [address] Study Date: 08/22/2019 10:29 AM Height: 65 in Weight: 141 lb BSA: 1.7 m2 Procedure: A two-dimensional transthoracic echocardiogram with color flow and Doppler was performed. The study was technically limited with all images being suboptimal in quality. Images were not obtained from all of the standard acoustic windows due to the limited scope of the study. Reason For Study: systolic murmur History: systolic murmur. Ordering Physician: BENTON DUTTA Performed By: Kira Mccord Interpretation Summary The left ventricle is normal in size. There is normal left ventricular wall thickness. No 'True 2 chamber ' views obtained.Hence cannot comment on the apical and basal inferior ,and the apical and basal anterior trevino.The mid anterior ,the mid inferior , and the rest of the LV waaaalls contract normally.The LVEF in these limited views is normal and greater than 60%. Doppler measurements suggest normal left ventricular diastolic function There is no thrombus. The right ventricle is moderately dilated. The right ventricular systolic function is mild to moderately reduced. The right atrium is mild to moderately dilated. The left atrial size is normal. The interatrial septum is intact with no evidence for an atrial septal defect. There is no mitral valve stenosis. There is no evidence of mitral valve prolapse. There is no vegetation seen on the mitral valve. There is a mild amount of mitral regurgitation There is no aortic valvular vegetation. There is aortic sclerosis without aortic stenosis. There is no LVOT obstruction. No aortic regurgitation is present. There is no tricuspid stenosis. There is a moderate to severe amount of tricuspid regurgitation There is servere pulmonary hypertension by echo rvsp IS ATLEAST 67 MM OF hG , WITH raMEAN OF AT LEAST 20. There is no pulmonic valvular stenosis. There is a mild amount of pulmonic regurgitation The aortic root is normal size. The inferior vena cava appeared dilated and did not change with respiration (RAP > 20 mmHg) There is no pericardial effusion. MMode/2D Measurements & Calculations RVDd: 3.3 cm LVIDd: 4.5 cm FS: 29.3 % Ao root diam: 2.0 cm IVSd: 0.81 cm LVIDs: 3.2 cm EDV(Teich): 92.3 ml Ao root area: 3.2 cm2 LVPWd: 0.81 cm ESV(Teich): 40.3 ml LA dimension: 3.3 cm EF(Teich): 56.3 % Doppler Measurements & Calculations MV E max samantha: MV P1/2t max samantha: Ao V2 max: LV V1 max P.5 cm/sec 116.5 cm/sec 181.2 cm/sec 6.2 mmHg MV A max samantha: MV P1/2t: 58.7 msec Ao max PG: LV V1 max: 97.2 cm/sec MVA(P1/2t): 3.7 cm2 13.1 mmHg 124.4 cm/sec MV E/A: 1.2 MV dec slope: 580.8 cm/sec2 MV dec time: 0.19 sec PA V2 max: TR max samantha: MV P1/2t-pr_phl: 120.9 cm/sec 342.1 cm/sec 58.7 msec PA max P.8 mmHgTR max P.8 mmHg Left Ventricle The left ventricle is normal in size. There is normal left ventricular wall thickness. No 'True 2 chamber ' views obtained.Hence cannot comment on the apical and basal inferior ,and the apical and basal anterior trevino.The mid anterior ,the mid inferior , and the rest of the LV waaaalls contract normally.The LVEF in these limited views is normal and greater than 60%. Doppler measurements suggest normal left ventricular diastolic function. There is no thrombus. There is no ventricular septal defect visualized. Right Ventricle The right ventricle is moderately dilated. The right ventricular systolic function is mild to moderately reduced. Atria The right atrium is mild to moderately dilated. The left atrial size is normal. The interatrial septum is intact with no evidence for an atrial septal defect. There is no Doppler evidence for an interatrial shunt. Mitral Valve There is no evidence of mitral valve prolapse. There is no vegetation seen on the mitral valve. There is no mitral valve stenosis. There is a mild amount of mitral regurgitation. Aortic Valve There is no aortic valvular vegetation. There is aortic sclerosis without aortic stenosis. There is no LVOT obstruction. No aortic regurgitation is present. Tricuspid Valve There is no tricuspid stenosis. There is a moderate to severe amount of tricuspid regurgitation. There is servere pulmonary hypertension by echo. rvsp IS ATLEAST 67 MM OF hG , WITH raMEAN OF AT LEAST 20. Pulmonic Valve There is no pulmonic valvular stenosis. There is a mild amount of pulmonic regurgitation. Great Vessels The aortic root is normal size. The inferior vena cava appeared dilated and did not change with respiration (RAP > 20 mmHg). Effusions There is no pericardial effusion. : BENTON DUTTA, Sarika
[2019-08-23] MEDS: BUDESONIDE NEB 0.5 MG/2 ML AMPUL NEB SCH (20:42)
[2019-08-23] MEDS: AZITHROMYCIN 500 MG in DEXTROSE 5%-WATER 250 ML IV SCH (21:24)
[2019-08-23] MEDS ORDERED: MONTELUKAST SODIUM 10 MG TABLET PO SCH (22:00)
[2019-08-24] MEDS: IPRATROPIUM/ALBUTEROL 0.5-2.5 MG/3 ML AMPUL NEB SCH ×3 (02:09→13:55)
[2019-08-24] MEDS: HEPARIN SOD (PORCINE) 5,000 UNIT/ML 1 ML VIAL SUBCUT SCH ×2 (06:30→13:20)
[2019-08-24 06:46] LABS: HEMATOCRIT 37.6 % (36.0-47.0); HEMOGLOBIN 11.7 g/dL (12.0-15.5); MEAN CORPUSCULAR HEMOGLOBIN 24.8 pg (27.0-33.4); MEAN CORPUSCULAR HGB CONC 31.2 g/dL (32.0-36.0); MEAN CORPUSCULAR VOLUME 79 fl (80-97); PLATELET COUNT 317 10^3/uL (150-450); RED BLOOD COUNT 4.73 10^6/uL (3.72-5.28); RED CELL DISTRIBUTION WIDTH 15.7 % (11.5-14.0)
[2019-08-24 07:05] LABS: BLOOD UREA NITROGEN 11 mg/dL (7-20); CALCIUM 8.7 mg/dL (8.4-10.2); CHLORIDE 91 mmol/L (98-107); GLUCOSE 89 mg/dL (75-110); POTASSIUM 4.6 mmol/L (3.6-5.0)
[2019-08-24 07:29] LABS: ANION GAP 3 (5-19); CARBON DIOXIDE 41 mmol/L (22-30)
[2019-08-24 07:49] LABS: ABSOLUTE LYMPHOCYTES# (MANUAL) 1.1 10^3/uL (0.5-4.7); ABSOLUTE MONOCYTES # (MANUAL) 0.4 10^3/uL (0.1-1.4); ANISOCYTOSIS SLIGHT; BASOPHILS % (MANUAL) 0 % (0-2); EOSINOPHILS % (MANUAL) 0 % (0-6); LYMPHOCYTES % (MANUAL) 22 % (13-45); MONOCYTES % (MANUAL) 8 % (3-13); OVALOCYTES SLIGHT; PLATELET COMMENT ADEQUATE; POIKILOCYTOSIS SLIGHT; SEGMENTED NEUTROPHILS % (MAN) 70 % (42-78); TOTAL CELLS COUNTED 100
[2019-08-24 07:50] LABS: WHITE BLOOD COUNT 5.2 10^3/uL (4.0-10.5)
[2019-08-24] MEDS: BUDESONIDE NEB 0.5 MG/2 ML AMPUL NEB SCH (08:37)
[2019-08-24] MEDS: FLUTICASONE NASAL SPRAY 50 MCG/SPRY 120 SPRAY/16 GM NASL SCH (10:02)
[2019-08-24] MEDS: TIOTROPIUM BROMIDE DPI 5 CAP/KIT (18 MCG/CAP) IH SCH (10:03)
[2019-08-24 10:07] VITALS: BP 153/69
[2019-08-24] MEDS: BUPROPION HCL 100 MG TABLET PO SCH ×2 (10:07→13:20)
[2019-08-24] MEDS: METOPROLOL SUCCINATE 25 MG TAB.SR.24H PO SCH (10:07)
[2019-08-24] MEDS: PREDNISONE 20 MG TABLET PO SCH (10:07)
[2019-08-24] MEDS: CITALOPRAM HYDROBROMIDE 20 MG TABLET PO SCH (10:08)
[2019-08-24] MEDS: RISPERIDONE 1 MG TABLET PO SCH (10:08)
[2019-08-24] MEDS: ARIPIPRAZOLE 5 MG TABLET PO SCH (10:08)
[2019-08-24] MEDS: LISINOPRIL 10 MG TABLET PO SCH (10:08)
[2019-08-24] MEDS: NICOTINE 21 MG/24 HR PATCH.TD24 TD SCH (10:10)
[2019-08-24] MEDS: PSYLLIUM SEED-SF 5.85 GM PACKET PO SCH (10:11)
[2019-08-24] MEDS ORDERED: ALBUTEROL SULFATE 0.083% NEB 2.5 MG/3 ML AMPUL NEB PRN ×2 (11:09→11:30)
--- NOTE | 2019-08-24 15:46 | PDOC DISCHARGE SUMMARY ---
Impression - Admit/DC Date/PCP Admission Date/Primary Care Provider: 08/21/19 22:57 Discharge Date: 08/24/19 - Discharge Diagnosis (1) PNA (pneumonia) Is this a current diagnosis for this admission?: Yes (2) Respiratory failure Is this a current diagnosis for this admission?: Yes (3) Congestive heart failure Is this a current diagnosis for this admission?: Yes (4) Cor pulmonale Is this a current diagnosis for this admission?: Yes (5) COPD exacerbation Is this a current diagnosis for this admission?: Yes (6) Hyponatremia Is this a current diagnosis for this admission?: Yes (7) Hypertension Is this a current diagnosis for this admission?: Yes (8) Hyperkalemia Is this a current diagnosis for this admission?: Yes - Assessment Summary: * Pneumonia-pneumonia order set instituted. IV antibiotics, steroids, supplemental oxygen as well as nebulizer treatments. * Acute on chronic respiratory failure with hypoxia and hypercapnia-PCO2 was 118 on admission. This morning she in fact is resting comfortably and mentating fairly clearly with a PCO2 of 83. She is wearing her BiPAP. This likely indicates her baseline PCO2 above 50. Continue current treatment plan. * COPD exacerbation-see plan above * Hyponatremia-IV fluids. Monitor sodium. * Congestive heart failure-echocardiogram has been ordered. Will better be able to delineate etiology and treatment plan once this information is available. * Hypertension-continue lisinopril. She may benefit from beta-blockade for her congestive heart failure. 08/23/2019-we will continue to wean from BiPAP. I have ordered nasal cannula with a repeat blood gas in approximately 2 to 3 hours. The patient should remain on BiPAP overnight for tonight. We will continue gentle fluids to monitor her sodium and possibly correct the hyperkalemia. We will continue to monitor electrolytes. The echocardiogram results are not available to better delineate congestive failure. I did add low-dose beta-kishor to her lisinopril for congestive heart failure. Nebulizers and steroids for her COPD. I discussed adjusting oxygen flow to keep oxygen saturation between 88 and 92%. - Additional Information Resuscitation Status: Full Code Discharge Diet: Cardiac Discharge Activity: Activity As Tolerated, Balance Activity w/Rest, Weigh Daily Referrals: Dr. Chapis Jean MD [Other] - 10/05/19 9:15 am RICHARD SHARP PA-C [NO LOCAL MD] - 08/30/19 3:00 pm Prescriptions: Cefuroxime Axetil [Ceftin 500 mg Tablet] 1 tab PO BID 7 Days #14 tablet Prednisone [Deltasone 20 mg Tablet] 20 mg PO BID 5 Days #10 tablet Fluticasone Propionate [Flonase Nasal Shelly 50 Mcg/Shelly 16 gm] 2 spray NASL Q12 #1 bottle Metoprolol Succinate [Toprol Xl 25 mg Tab.sr] 25 mg PO DAILY 14 Days #14 tab.sr.24h Albuterol Sulfate [Ventolin 0.083% Neb 2.5 mg/3 mL Ampul] 1 vial NEB RTQ6 PRN #100 PRN Reason: Azithromycin [Zithromax 250 mg Tablet] 250 mg PO DAILY #5 tablet Home Medications: Albuterol Sulfate [Proair HFA Inhalation Aerosol 8.5 gm MDI] 1 puff IH Q4HP PRN 08/22/19 Aripiprazole [Abilify 5 mg Tablet] 5 mg PO DAILY 08/22/19 Bupropion HCl [Wellbutrin Xl 300mg 24hr Tablet] 300 mg PO DAILY 08/22/19 Citalopram Hydrobromide [Celexa 40 mg Tablet] 40 mg PO DAILY 08/22/19 Fluticasone/Umeclidin/Vilanter [Trelegy 100-62.5-25 Mcg Ellipta 14 Dose/Dpi] 2 puff IH BID 08/22/19 Lisinopril [Prinivil 40 mg Tablet] 20 mg PO DAILY 08/22/19 Montelukast Sodium [Singulair 10 mg Tablet] 10 mg PO QHS 08/22/19 Risperidone [Risperdal] 3 mg PO Q12 08/22/19 Albuterol Sulfate [Ventolin 0.083% Neb 2.5 mg/3 mL Ampul] 1 vial NEB RTQ6 PRN #100 08/24/19 Azithromycin [Zithromax 250 mg Tablet] 250 mg PO DAILY #5 tablet 08/24/19 Cefuroxime Axetil [Ceftin 500 mg Tablet] 1 tab PO BID 7 Days #14 tablet 08/24/19 Fluticasone Propionate [Flonase Nasal Shelly 50 Mcg/Shelly 16 gm] 2 spray NASL Q12 #1 bottle 08/24/19 Metoprolol Succinate [Toprol Xl 25 mg Tab.sr] 25 mg PO DAILY 14 Days #14 tab.sr.24h 08/24/19 Nicotine [Nicoderm 21 mg/24 Hr Transderm Patch] 1 each TD DAILY patch.td24 08/24/19 Prednisone [Deltasone 20 mg Tablet] 20 mg PO BID 5 Days #10 tablet 08/24/19 Psyllium Seed [Metamucil-Sf Powder 5.85 gm Packet] 1 packet PO DAILY packet 08/24/19 History of Present Illiness History of Present Illness: JULIO BACA is a 54 year old female with severe chronic obstructive pulmonary disease presented with hypoxic hypercapnic acute on chronic respiratory failure requiring BiPAP. She was also found to have infiltrates by chest x-ray and no elevation in her white blood cell count. She seemed to be responding to BiPAP and her PCO2 of 118 began to improve. Surprisingly for such an elevated PCO2 she was mentating quite clearly. She was referred to the hospital service for admission. Hospital Course Hospital Course: The patient had a fairly unremarkable hospital course. Further evaluation of her condition by echocardiogram revealed significant pulmonary hypertension with cor pulmonale. In addition a set of PFTs showed severe obstructive pulmonary disease. She has improved and is back to her baseline oxygen. She in fact feels that she is back to her chronic state. Her agrees that discharge to home is appropriate at this time. Physical Exam Vital Signs: Temp Pulse Resp BP Pulse Ox 97.1 F 88 18 153/69 H 93 08/24/19 07:45 08/24/19 14:00 08/24/19 13:56 08/24/19 07:45 08/24/19 13:56 Intake & Output 08/23/19 08/24/19 08/25/19 06:59 06:59 06:59 Intake Total 2410 640 480 Output Total 1300 1700 Balance 1110 -1060 480 Weight 58.3 kg 54.4 kg General appearance: PRESENT: no acute distress, cooperative, thin, well- developed Mouth exam: PRESENT: moist, neck supple, tongue midline Teeth exam: PRESENT: poor dentation Respiratory exam: PRESENT: prolonged expiratory phas, symmetrical, unlabored, wheezes - Very faint sporadic wheeze. ABSENT: rales, rhonchi, tachypnea Cardiovascular exam: PRESENT: RRR, +S1, +S2 GI/Abdominal exam: PRESENT: normal bowel sounds, soft. ABSENT: distended, tenderness Extremities exam: ABSENT: pedal edema Neurological exam: PRESENT: alert, awake, oriented to person, oriented to place, oriented to time, oriented to situation, CN II-XII grossly intact Psychiatric exam: PRESENT: normal mood. ABSENT: agitated, anxious Focused psych exam: ABSENT: delusional, restlessness Results Laboratory Results: WBC 5.2 10^3/uL (4.0-10.5) D 08/24/19 06:23 RBC 4.73 10^6/uL (3.72-5.28) 08/24/19 06:23 Hgb 11.7 g/dL (12.0-15.5) L 08/24/19 06:23 Hct 37.6 % (36.0-47.0) 08/24/19 06:23 MCV 79 fl (80-97) L 08/24/19 06:23 MCH 24.8 pg (27.0-33.4) L 08/24/19 06:23 MCHC 31.2 g/dL (32.0-36.0) L 08/24/19 06:23 RDW 15.7 % (11.5-14.0) H 08/24/19 06:23 Plt Count 317 10^3/uL (150-450) 08/24/19 06:23 Lymph % (Auto) Not Reportable 08/24/19 06:23 [place] % (Auto) Not Reportable 08/24/19 06:23 Eos % (Auto) Not Reportable 08/24/19 06:23 Baso % (Auto) Not Reportable 08/24/19 06:23 Absolute Neuts (auto) Not Reportable 08/24/19 06:23 Absolute Lymphs (auto) Not Reportable 08/24/19 06:23 Absolute Monos (auto) Not Reportable 08/24/19 06:23 Absolute Eos (auto) Not Reportable 08/24/19 06:23 Absolute Basos (auto) Not Reportable 08/24/19 06:23 Total Counted 100 08/24/19 06:23 Seg Neutrophils % Not Reportable 08/24/19 06:23 Seg Neuts % (Manual) 70 % (42-78) 08/24/19 06:23 Lymphocytes % (Manual) 22 % (13-45) 08/24/19 06:23 Monocytes % (Manual) 8 % (3-13) 08/24/19 06:23 Eosinophils % (Manual) 0 % (0-6) 08/24/19 06:23 Basophils % (Manual) 0 % (0-2) 08/24/19 06:23 Abs Neuts (Manual) 3.6 10^3/uL (1.7-8.2) 08/24/19 06:23 Abs Lymphs (Manual) 1.1 10^3/uL (0.5-4.7) 08/24/19 06:23 Abs Monocytes (Manual) 0.4 10^3/uL (0.1-1.4) 08/24/19 06:23 Absolute Eos (Manual) 0.0 10^3/uL (0.0-0.6) 08/24/19 06:23 Abs Basophils (Manual) 0.0 10^3/uL (0.0-0.2) 08/24/19 06:23 Platelet Estimate Cancelled 08/22/19 05:15 Platelet Comment ADEQUATE 08/24/19 06:23 Poikilocytosis SLIGHT 08/24/19 06:23 Anisocytosis SLIGHT 08/24/19 06:23 Ovalocytes SLIGHT 08/24/19 06:23 Carbonic Acid 2.31 mmol/L (1.05-1.35) H 08/23/19 17:50 HCO3/H2CO3 Ratio 18:1 08/23/19 17:50 ABG pH 7.37 (7.35-7.45) 08/23/19 17:50 ABG pCO2 76.8 mmHg (35-45) H* 08/23/19 17:50 ABG pO2 72.9 mmHg (80-100) L 08/23/19 17:50 ABG HCO3 43.6 mmol/L (20-24) H 08/23/19 17:50 ABG Total CO2 46.0 mmol/L (21-25) H 08/23/19 17:50 ABG O2 Saturation 93.5 % (94-98) L 08/23/19 17:50 ABG Base Excess 15.0 mmol/L 08/23/19 17:50 FiO2 3L 08/23/19 17:50 Sodium 134.8 mmol/L (137-145) L 08/24/19 06:23 Potassium 4.6 mmol/L (3.6-5.0) 08/24/19 06:23 Chloride 91 mmol/L (98-107) L 08/24/19 06:23 Carbon Dioxide 41 mmol/L (22-30) H* 08/24/19 06:23 Anion Gap 3 (5-19) L 08/24/19 06:23 BUN 11 mg/dL (7-20) 08/24/19 06:23 Creatinine 0.77 mg/dL (0.52-1.25) 08/24/19 06:23 Est GFR ( Amer) > 60 (>60) 08/24/19 06:23 Est GFR (MDRD) Non-Af > 60 (>60) 08/24/19 06:23 Glucose 89 mg/dL (75-110) 08/24/19 06:23 POC Glucose 140 mg/dL (70-110) H 08/21/19 20:04 Lactic Acid 0.6 mmol/L (0.7-2.1) L 08/21/19 20:33 Calcium 8.7 mg/dL (8.4-10.2) 08/24/19 06:23 Magnesium 2.1 mg/dL (1.6-2.3) 08/24/19 06:23 Total Bilirubin 0.2 mg/dL (0.2-1.3) 08/21/19 19:21 Direct Bilirubin 0.1 mg/dL (0.0-0.4) 08/21/19 19:21 Neonat Total Bilirubin Not Reportable 08/21/19 19:21 Neonat Direct Bilirubin Not Reportable 08/21/19 19:21 Neonat Indirect Bili Not Reportable 08/21/19 19:21 AST 31 U/L (14-36) 08/21/19 19:21 ALT 23 U/L (<35) 08/21/19 19:21 Alkaline Phosphatase 87 U/L (38-126) 08/21/19 19:21 Troponin I < 0.012 ng/mL 08/21/19 19:21 NT-Pro-B Natriuret Pep 6360 pg/mL (5-900) H 08/24/19 06:23 Total Protein 5.3 g/dL (6.3-8.2) L 08/21/19 19:21 Albumin 3.1 g/dL (3.5-5.0) L 08/21/19 19:21 TSH 0.51 uIU/mL (0.47-4.68) 08/21/19 19:21 Urine Color STRAW 08/21/19 21:46 Urine Appearance CLEAR 08/21/19 21:46 Urine pH 6.0 (5.0-9.0) 08/21/19 21:46 Ur Specific Rector 1.004 08/21/19 21:46 Urine Protein NEGATIVE mg/dL (NEGATIVE) 08/21/19 21:46 Urine Glucose (UA) NEGATIVE mg/dL (NEGATIVE) 08/21/19 21:46 Urine Ketones NEGATIVE mg/dL (NEGATIVE) 08/21/19 21:46 Urine Blood NEGATIVE (NEGATIVE) 08/21/19 21:46 Urine Nitrite NEGATIVE (NEGATIVE) 08/21/19 21:46 Urine Bilirubin NEGATIVE (NEGATIVE) 08/21/19 21:46 Urine Urobilinogen NEGATIVE mg/dL (<2.0) 08/21/19 21:46 Ur Leukocyte Esterase NEGATIVE (NEGATIVE) 08/21/19 21:46 Urine WBC (Auto) 1 /HPF 08/21/19 21:46 Urine RBC (Auto) 1 /HPF 08/21/19 21:46 Squamous Epi Cells Auto 2 /HPF 08/21/19 21:46 Urine Mucus (Auto) RARE /LPF 08/21/19 21:46 Urine Ascorbic Acid NEGATIVE (NEGATIVE) 08/21/19 21:46 Urine Opiates Screen NEGATIVE 08/21/19 21:46 Urine Methadone Screen NEGATIVE 08/21/19 21:46 Ur Barbiturates Screen NEGATIVE 08/21/19 21:46 Ur Phencyclidine Scrn NEGATIVE 08/21/19 21:46 Ur Amphetamines Screen NEGATIVE 08/21/19 21:46 U Benzodiazepines Scrn NEGATIVE 08/21/19 21:46 Urine Cocaine Screen NEGATIVE 08/21/19 21:46 U Marijuana (THC) Screen UNCONFIRMED POSITIVE 08/21/19 21:46 Slides for Path Review Cancelled 08/22/19 05:15 08/21/19 08/24/19 19:21 06:23 Troponin I < 0.012 NT-Pro-B Natriuret Pep 4350 H 6360 H Impressions: Chest X-Ray 08/21/19 19:20 IMPRESSION: 1. Cardiomegaly. Underlying COPD/emphysema. Infiltrates in the right lower lobe and left perihilar region. These could represent infectious pneumonia or more chronic interstitial process. CT may be more accurate for evaluation of lung parenchyma. 2. 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 New finding since 2014. Chest/Abdomen CTA 08/21/19 21:37 IMPRESSION: No acute pulmonary embolism. Trace right pleural effusion. Extensive emphysematous changes. Plan Health Concerns: End-stage COPD with chronic hypercapnia Plan of Treatment: The patient will discharge to home. She will complete her antibiotic therapy. She in fact was taking Trelegy and Brio Ellipta and I told her that she should not take both. She will continue the Trelegy. I also provided a prescription for unit dose DuoNeb treatments. I encouraged them to obtain a pulse oximeter and that she should keep her oxygen saturation between 88 and 92% at all times. She will follow-up with her petroleum engineer Dr. Jean in [place] as well as her primary care provider. Prescriptions were sent electronically to the [facility] in [place]. Goals: To achieve steady state with her COPD. She needs to stop smoking. Time Spent: Greater than 30 Minutes Stroke Is this a Stroke Patient?: No Acute Heart Failure - Is this a Heart Failure Patient?: Yes Documentation of LVEF assessment?: Yes LVEF < 40%?: No- if no continue to question #3 3. Anticoagulant therapy for permanect/persistent/paraoxysmal Afib or Aflutter: N/A Follow-up Appointment scheduled within 7 days?: Yes
== END 2019-08-24 16:30 | disposition home health service (06) | DRG 193 ==
LOC: ER 19:11 → EH 22:57 → 3S 08-22 02:13
PROVIDERS: ADMIT Internal Medicine; ATTEND Internal Medicine
PROC: 5A09457 Assistance with Respiratory Ventilation, 24-96 Consecutive Hours, Continuous Positive Airway Pressure (ICD-10-PCS; principal; 2019-08-21)
PROC: 3E0234Z Introduction of Serum, Toxoid and Vaccine into Muscle, Percutaneous Approach (ICD-10-PCS; 2019-08-24)
DX: J13 Pneumonia due to Streptococcus pneumoniae (principal); J96.22 Acute and chronic respiratory failure with hypercapnia; J96.21 Acute and chronic respiratory failure with hypoxia; J44.1 Chronic obstructive pulmonary disease with (acute) exacerbation; E87.1 Hypo-osmolality and hyponatremia; I50.9 Heart failure, unspecified; I11.0 Hypertensive heart disease with heart failure; I27.29 Other secondary pulmonary hypertension; F31.9 Bipolar disorder, unspecified; F17.210 Nicotine dependence, cigarettes, uncomplicated; Z99.81 Dependence on supplemental oxygen; Z79.51 Long term (current) use of inhaled steroids; Z79.899 Other long term (current) drug therapy; Z23 Encounter for immunization
CPT/HCPCS: 36415; 36600; 71045; 71275; 80048; 80053; 80307; 81001; 82803; 82962; 83605; 83735; 83880; 84443; 84484; 85025; 87040; 87086; 90686; 93005; 93010; 93306; 94060; 94640; 94660; 94667; 94668; 94799; 96365; 99291; J0360; J0456; J0696; J1644; J1940; J3490; J7060; J7512; J7620

== ENCOUNTER 2020-01-12 20:24 | Inpatient (IN) | payer OTHER, MEDICARE ==
[2020-01-12 21:00] LABS: ABSOLUTE LYMPHOCYTES (AUTO) 1.2 10^3/uL (0.5-4.7); ABSOLUTE NEUT (AUTO) 9.7 10^3/uL (1.7-8.2); BASOPHILS % (AUTO) 0.2 % (0-2); EOSINOPHILS % (AUTO) 0.4 % (0-6); HEMATOCRIT 40.3 % (36.0-47.0); HEMOGLOBIN 12.9 g/dL (12.0-15.5); LYMPHOCYTES % (AUTO) 9.9 % (13-45); MEAN CORPUSCULAR HEMOGLOBIN 26.8 pg (27.0-33.4); MEAN CORPUSCULAR VOLUME 84 fl (80-97); MONOCYTES % (AUTO) 8.1 % (3-13); PLATELET COUNT 314 10^3/uL (150-450); RED CELL DISTRIBUTION WIDTH 16.1 % (11.5-14.0); SEGMENTED NEUTROPHILS % (AUTO) 81.4 % (42-78); TOTAL CELLS COUNTED % (AUTO) 100 %; WHITE BLOOD COUNT 11.9 10^3/uL (4.0-10.5)
--- NOTE | 2020-01-12 21:02 | ER Document Report ---
ED General - General Chief Complaint: Respiratory Distress Stated Complaint: RESPIRATORY DISTRESS Time Seen by Provider: 01/12/20 20:47 TRAVEL OUTSIDE OF THE [place] IN LAST 30 DAYS: No - HPI Notes: Ms. trina Guzmán is a 54-year-old female presenting via EMS with a chief complaint of respiratory distress. Patient is chronically dependent on 3-1/2 L of nasal O2 with longstanding history of COPD and CHF. She unfortunately continues to smoke 1/2 pack of cigarettes per day. She was previously admitted here in July 2019 with acute respiratory failure requiring prolonged support with BiPAP. She was noted to have pneumococcal pneumonia at that time. Clinical presentation is similar today. Patient was placed on BiPAP in the field by EMS and they also started her on IV nitroglycerin and had her up to 40 mcg at the time she was brought in here. Patient is awake and alert and denies chest pain. She notes she has been coughing up white sputum for several days. Indicates she did take a flu shot this season. - Related Data Allergies/Adverse Reactions: No Known Allergies Allergy (Verified 02/18/14 03:01) Past Medical History - General Information source: Patient, Emergency Med Personnel, [facility] Records - Social History Smoking Status: Current Every Day Smoker Frequency of alcohol use: None Drug Abuse: None Lives with: Family Family History: COPD, Hypertension - Past Medical History Cardiac Medical History: Reports: Hx Congestive Heart Failure, Hx Hypertension Denies: Hx Coronary Artery Disease, Hx Heart Attack Pulmonary Medical History: Reports: Hx Asthma, Hx Bronchitis, Hx COPD, Hx Pneumonia Neurological Medical History: Reports: Hx Seizures - ONCE 3 YEARS AGO. Denies: Hx Cerebrovascular Accident Renal/ Medical History: Reports: Hx Kidney Stones Musculoskeletal Medical History: Reports Hx Arthritis Psychiatric Medical History: Reports: Hx Bipolar Disorder, Hx Depression Past Surgical History: Reports: Hx Section, Hx Orthopedic Surgery - right knee. Denies: Hx Hysterectomy, Hx Pacemaker - Immunizations Hx Diphtheria, Pertussis, Tetanus Vaccination: No Hx Pneumococcal Vaccination: 01/12/13 Review of Systems - Review of Systems Notes: Constitutional: Negative for fever. HENT: Negative for sore throat. Eyes: Negative for visual changes. Cardiovascular: Negative for chest pain. Respiratory: As per HPI. Gastrointestinal: Negative for abdominal pain, vomiting or diarrhea. Genitourinary: Negative for dysuria. Musculoskeletal: Negative for back pain. Skin: Negative for rash. Neurological: Negative for headaches, weakness or numbness. 10 point ROS negative except as marked above and in HPI. Physical Exam - Vital signs Vitals: BP Pulse Ox 176/88 H 98 01/12/20 20:27 01/12/20 20:27 - Notes Notes: GENERAL: Chronically ill-appearing female approximately stated age on BiPAP with mild respiratory distress. SKIN: Good turgor no rashes. HEAD: Normocephalic atraumatic. EYES: PERRLA. EOMI. Conjunctivae and sclerae clear. EARS: CANALS AND TMS CLEAR. NOSE: CLEAR. MOUTH: Moist mucosa. Good dentition. No stridor or edema. No drooling. NECK: Supple. No masses or thyromegaly. No adenopathy. Carotids 2+ without bruits. No JVD. BACK: Symmetrical without tenderness. CHEST: Patient is being supported with BiPAP. Scattered rhonchi bilaterally with symmetrical breath sounds. HEART: Regular rhythm. No murmur gallop or rub. ABDOMEN: Soft nontender without masses, organomegaly or rebound. Bowel sounds normally active. No bruits. GENITALIA: Deferred. EXTREMITIES: 2+ clubbing upper extremities bilaterally no edema. No calf tenderness. Cap refill less than 1.5 seconds. Dorsalis pedis and posterior tibial pulses 3+ and symmetrical. NEUROLOGICAL: GCS 15. Alert and oriented x3. Fluent speech. Cranial nerves II through XII intact. Sensorimotor and cerebellar normal. Normal tone. PSYCHIATRIC: Appropriate affect. Course - Re-evaluation Re-evalutation: 01/12/20 21:02 We will wean the patient off nitroglycerin continue BiPAP for the time being. We will follow this up with an ABG. I am going to administer Solu-Medrol. Chest x-ray and full labs pending. 01/12/20 23:32 Normal troponin. No chest pain here. We were able to wean this lady off BiPAP and get her back on nasal O2. She still has diffuse wheezes but is in no respiratory distress at this time and feels much better. Case is discussed with Dr. Meza the on-call hospitalist who will admit. - Vital Signs Vital signs: Temp Pulse Resp BP Pulse Ox 17 115/75 98 01/12/20 22:21 01/12/20 22:21 01/12/20 22:21 - Laboratory Result Diagrams: 01/12/20 20:30 01/12/20 20:30 Laboratory results interpreted by me: 01/12/20 01/12/20 01/12/20 20:30 20:30 20:30 WBC 11.9 H MCH 26.8 L RDW 16.1 H Lymph % (Auto) 9.9 L Absolute Neuts (auto) 9.7 H Seg Neutrophils % 81.4 H Carbonic Acid ABG pCO2 ABG pO2 ABG HCO3 ABG Total CO2 Sodium 126.2 L Chloride 82 L Carbon Dioxide 38 H Lactic Acid 0.6 L NT-Pro-B Natriuret Pep Total Protein 5.7 L 01/12/20 01/12/20 20:33 21:40 WBC MCH RDW Lymph % (Auto) Absolute Neuts (auto) Seg Neutrophils % Carbonic Acid 2.21 H ABG pCO2 73.4 H* ABG pO2 108.8 H ABG HCO3 39.3 H ABG Total CO2 41.6 H Sodium Chloride Carbon Dioxide Lactic Acid NT-Pro-B Natriuret Pep 605 H Total Protein - EKG Interpretation by Me Additional EKG results interpreted by me: 01/12/20 21:04 Twelve-lead EKG from 7 hrs. is reviewed contemporaneously by me demonstrating sinus tachycardia with a rate of 103 and a pre-existing incomplete right bundle branch block. QRS axis is [address]/T wave changes are appreciated. Tracing is compared to prior study of 08/21/2019. Critical Care Note - Critical Care Note Total time excluding time spent on procedures (mins): 35 - Ventilatory support with BiPAP Discharge - Discharge Clinical Impression: COPD exacerbation, Cigarette smoker Acute and chronic respiratory failure ([id number]) Qualifiers: Respiratory failure complication: hypoxia and hypercapnia Qualified Code(s): J96.21 - Acute and chronic respiratory failure with hypoxia; J96.22 - Acute and chronic respiratory failure with hypercapnia Congestive heart failure (CHF) Qualifiers: Heart failure type: unspecified Heart failure chronicity: unspecified Qualified Code(s): I50.9 - Heart failure, unspecified Condition: Fair Disposition: ADMITTED INPATIENT Admitting Provider: Susana (Hospitalist) Unit Admitted: Medical Floor
[2020-01-12 21:05] LABS: INTERNATIONAL RATION (INR) 0.92
[2020-01-12 21:06] LABS: PARTIAL THROMBOPLASTIN TIME 26.5 SEC (23.5-35.8)
[2020-01-12 21:11] LABS: PROTHROMBIN TIME 12.4 SEC (11.4-15.4)
[2020-01-12 21:15] LABS: APPEARANCE,URINE CLEAR; BILIRUBIN,URINE NEGATIVE (NEGATIVE); COLOR,URINE COLORLESS; GLUCOSE, URINE NEGATIVE (NEGATIVE); KETONES,URINE NEGATIVE (NEGATIVE); PROTEIN,URINE NEGATIVE (NEGATIVE); URINE SPECIFIC GRAVITY 1.002; UROBILINOGEN,URINE NEGATIVE mg/dL (<2.0)
[2020-01-12 21:16] LABS: ALBUMIN 3.5 g/dL (3.5-5.0); ALKALINE PHOSPHATASE 76 U/L (38-126); ASPARTATE AMINO TRANSFERASE 34 U/L (14-36); BILIRUBIN,DIRECT 0.1 mg/dL (0.0-0.4); BILIRUBIN,TOTAL 0.3 mg/dL (0.2-1.3); BLOOD UREA NITROGEN 17 mg/dL (7-20); CALCIUM 9.1 mg/dL (8.4-10.2); CHLORIDE 82 mmol/L (98-107); GLUCOSE 84 mg/dL (75-110); POTASSIUM 3.9 mmol/L (3.6-5.0); TOTAL PROTEIN 5.7 g/dL (6.3-8.2)
[2020-01-12 21:32] LABS: ANION GAP 6 (5-19); CARBON DIOXIDE 38 mmol/L (22-30)
--- NOTE | 2020-01-12 21:41 | RADIOLOGY REPORT (SQ) ---
EXAM DESCRIPTION: XR CHEST 1 VIEW COMPLETED DATE/TME: 01/12/2020 20:48 CLINICAL HISTORY: 54 years Female dyspnea COMPARISON: 08/21/2019 FINDINGS: The cardiomediastinal silhouette appears unremarkable. No consolidating infiltrates or pleural effusions. No pneumothorax. Lungs are hyperinflated. Fracture of the proximal left humerus which appears to be stable when compared to prior exams. IMPRESSION: COPD No acute abnormality is identified.
[2020-01-12 22:01] LABS: ARTERIAL BLOOD BASE EXCESS 10.8 mmol/L; ARTERIAL BLOOD H2CO3 2.21 mmol/L (1.05-1.35); ARTERIAL BLOOD HCO3 39.3 mmol/L (20-24); ARTERIAL BLOOD O2 SATURATION 97.5 % (94-98); ARTERIAL BLOOD PH 7.35 (7.35-7.45); ARTERIAL BLOOD PO2 108.8 mmHg (80-100); ARTERIAL BLOOD TOTAL CO2 41.6 mmol/L (21-25)
[2020-01-12 22:04] LABS: ARTERIAL BLOOD FIO2 40%
[2020-01-12 22:05] LABS: ARTERIAL BLOOD PCO2 73.4 mmHg (35-45)
[2020-01-12] MEDS ORDERED: METHYLPREDNISOLONE INJ 125 MG/2 ML SDV IV ONE (22:17)
[2020-01-12] MEDS ORDERED: FUROSEMIDE INJ/PF 20 MG/2 ML SDV IV ONE (22:31)
[2020-01-12] MEDS ORDERED: NITROGLYCERIN 2% OINTMENT 1 GM PACKET TP ONE (22:32)
[2020-01-13] MEDS ORDERED: MAG HYDROX/AL HYDROX/SIMETH SUSP 30 ML UDCUP PO PRN (00:20)
[2020-01-13] MEDS ORDERED: PROMETHAZINE HCL INJ 25 MG/1 ML VIAL IV PRN (00:20)
[2020-01-13] MEDS ORDERED: MAGNESIUM HYDROXIDE SUSP 30 ML UDCUP PO PRN (00:20)
[2020-01-13] MEDS ORDERED: TEMAZEPAM 15 MG CAPSULE PO PRN (00:20)
[2020-01-13] MEDS ORDERED: ACETAMINOPHEN 325 MG TABLET PO PRN (00:26)
[2020-01-13] MEDS ORDERED: HYDRALAZINE HCL INJ/PF 20 MG/1 ML SDV IV PRN (00:26)
[2020-01-13] MEDS ORDERED: LORAZEPAM INJ 2 MG/1 ML VIAL IV PRN (00:26)
[2020-01-13 00:34] LABS: A TYPE INFLUENZA AG NEGATIVE (NEGATIVE); B INFLUENZA AG NEGATIVE (NEGATIVE)
[2020-01-13] MEDS: NITROGLYCERIN 2% OINTMENT 1 GM PACKET TP SCH ×2 (00:50→06:50)
[2020-01-13] MEDS: SPIRONOLACTONE 25 MG TABLET PO SCH ×2 (01:08→09:31)
[2020-01-13 01:44] LABS: CREATINE KINASE MB 10.4 ng/mL (<4.55); TROPONIN I 0.028 ng/mL
--- NOTE | 2020-01-13 03:20 | PDOC H&P ---
History of Present Illness Admission Date/PCP: 01/12/20 23:42 Patient complains of: Dyspnea History of Present Illness: JULIO BACA is a 54 year old female who presented the emergency room via EMS with acute dyspnea. Patient admits that she developed sudden onset of severe dyspnea short time before calling EMS. She admits that her dyspnea is worsened with exertion, accompanied by severe air hunger and associated with orthopnea. She denies other associated or accompanying signs and symptoms. She admits numerous prior similar episodes related to her CHF and COPD. She has not identified any additional aggravating or ameliorating factors for her dyspnea. EMS found the patient to be severely dyspneic and severely hypertensive and that she was treated with BiPAP and IV nitroglycerin in the field. Her symptoms resolved rapidly over the course of her transportation and she was significantly improved by the time she arrived at the emergency room. In the ER she was weaned off BiPAP back to 3-1/2 L/min of oxygen via nasal cannula. The patient's chest x-ray showed no acute process and her laboratory evaluation was unremarkable. She was subsequently placed in observation for further evaluation and treatment. Past Medical History Cardiac Medical History: Reports: Congestive Heart Failure, Hypertension Denies: Coronary Artery Disease, Myocardial Infarction Pulmonary Medical History: Reports: Asthma, Bronchitis, Chronic Obstructive Pulmonary Disease (COPD), Pneumonia, Respiratory Failure - Chronic respiratory failure with hypoxia, Other - Chronic cough EENT Medical History: Denies: Cataracts, Ears - Hearing aids Neurological Medical History: Reports: Seizures - Single seizure in the remote past Denies: Hemorrhagic CVA, Ischemic CVA Endocrine Medical History: Denies: Diabetes Mellitus Type 1, Diabetes Mellitus Type 2, Hyperthyroidism, Hypothyroidism, Obesity Renal/ Medical History: Denies: Chronic Kidney Disease, Nephrolithiasis Malignancy Medical History: Reports: None GI Medical History: Denies: Cirrhosis, Crohn's Disease, Gastroesophageal Reflux Disease, Hepatitis, Peptic Ulcer Disease, Ulcerative Colitis Musculoskeltal Medical History: Reports: Arthritis Denies: Gout Skin Medical History: Denies: Eczema, Psoriasis Psychiatric Medical History: Reports: Bipolar Disorder, Depression, Tobacco Dependency Denies: Alcohol Dependency, Substance Abuse Traumatic Medical History: Reports: None Hematology: Denies: Anemia, Bleeding Tendencies Infectious Medical History: Reports: None Past Surgical History Past Surgical History: Reports: Section, Orthopedic Surgery - right knee Social History Information Source: Patient Lives with: Family Smoking Status: Current Every Day Smoker Electronic Cigarette use?: No Frequency of Alcohol Use: None Hx Recreational Drug Use: Yes Drugs: Marijuana Hx Prescription Drug Abuse: No - Advance Directive Resuscitation Status: Full Code Surrogate healthcare decision maker:: Milo Baca Family History Family History: COPD, Hypertension. denies: CAD, CVA, DM, Malignancy Parental Family History Reviewed: Yes Children Family History Reviewed: No Sibling(s) Family History Reviewed.: Yes Medication/Allergy Home Medications: Albuterol Sulfate [Proair HFA Inhalation Aerosol 8.5 gm MDI] 1 puff IH Q4HP PRN 08/22/19 Aripiprazole [Abilify 5 mg Tablet] 5 mg PO DAILY 08/22/19 Bupropion HCl [Wellbutrin Xl 300mg 24hr Tablet] 300 mg PO DAILY 08/22/19 Citalopram Hydrobromide [Celexa 40 mg Tablet] 40 mg PO DAILY 08/22/19 Fluticasone/Umeclidin/Vilanter [Trelegy 100-62.5-25 Mcg Ellipta 14 Dose/Dpi] 2 puff IH BID 08/22/19 Lisinopril [Prinivil 40 mg Tablet] 20 mg PO DAILY 08/22/19 Montelukast Sodium [Singulair 10 mg Tablet] 10 mg PO QHS 08/22/19 Risperidone [Risperdal] 3 mg PO Q12 08/22/19 Albuterol Sulfate [Ventolin 0.083% Neb 2.5 mg/3 mL Ampul] 1 vial NEB RTQ6 PRN #100 08/24/19 Azithromycin [Zithromax 250 mg Tablet] 250 mg PO DAILY #5 tablet 08/24/19 Cefuroxime Axetil [Ceftin 500 mg Tablet] 1 tab PO BID 7 Days #14 tablet 08/24/19 Fluticasone Propionate [Flonase Nasal [place] 50 Mcg/[place] 16 gm] 2 spray NASL Q12 #1 bottle 08/24/19 Metoprolol Succinate [Toprol Xl 25 mg Tab.sr] 25 mg PO DAILY 14 Days #14 tab.s r.24h 08/24/19 Nicotine [Nicoderm 21 mg/24 Hr Transderm Patch] 1 each TD DAILY patch.td24 08/24/19 Prednisone [Deltasone 20 mg Tablet] 20 mg PO BID 5 Days #10 tablet 08/24/19 Psyllium Seed [Metamucil-Sf Powder 5.85 gm Packet] 1 packet PO DAILY packet 08/24/19 Allergies/Adverse Reactions: No Known Allergies Allergy (Verified 02/18/14 03:01) Review of Systems Constitutional: ABSENT: chills, fever(s) Eyes: ABSENT: visual disturbances, other - Eye pain Ears: ABSENT: hearing changes, other - Ear pain Nose, Mouth, and Throat: ABSENT: headache(s), mouth pain, sore throat Cardiovascular: PRESENT: as per HPI, dyspnea on exertion, orthropnea. ABSENT: chest pain, edema, palpitations Respiratory: PRESENT: as per HPI, cough - Chronic, dyspnea, sputum - Chronic cough with small amounts of whitish sputum every day. ABSENT: hemoptysis Gastrointestinal: ABSENT: abdominal pain, constipation, diarrhea, nausea, vomiting Genitourinary: ABSENT: dysuria, hematuria Musculoskeletal: ABSENT: back pain, joint swelling Integumentary: ABSENT: diaphoresis, pruritus, rash Neurological: ABSENT: confusion, convulsions, focal weakness, memory loss, syncope Psychiatric: ABSENT: anxiety, depression Endocrine: ABSENT: cold intolerance, heat intolerance, polydipsia, polyphagia, polyuria Hematologic/Lymphatic: ABSENT: easy bleeding, easy bruising Allergic/Immunologic: ABSENT: seasonal rhinorrhea Physical Exam Vital Signs: Temp Pulse Resp BP Pulse Ox 16 142/72 H 96 01/12/20 23:36 01/12/20 23:36 01/12/20 23:27 Intake & Output 01/10/20 01/11/20 01/12/20 23:59 23:59 23:59 Weight 57.606 kg General appearance: PRESENT: no acute distress, cooperative Head exam: PRESENT: atraumatic, normocephalic Eye exam: PRESENT: conjunctiva pink. ABSENT: conjunctival injection, scleral icterus Ear exam: PRESENT: normal external ear exam. ABSENT: bleeding, drainage Mouth exam: PRESENT: dry mucosa, neck supple Neck exam: ABSENT: thyromegaly, tracheal deviation Respiratory exam: PRESENT: decreased breath sounds - Moderate decreased breath sounds noted throughout all hunt consistent with moderate to severe COPD, prolonged expiratory phas - Mildly prolonged expiratory phase noted throughout all hunt, rales - Fine rales noted in both bases, symmetrical, wheezes - Mild expiratory wheezes noted in all hunt Cardiovascular exam: PRESENT: RRR. ABSENT: clicks, gallop, rubs Pulses: PRESENT: normal radial pulses, normal dorsalis pedis pul Vascular exam: PRESENT: normal capillary refill. ABSENT: pallor GI/Abdominal exam: PRESENT: normal bowel sounds, soft. ABSENT: tenderness Rectal exam: PRESENT: deferred Extremities exam: ABSENT: joint swelling, pedal edema Musculoskeletal exam: ABSENT: deformity, dislocation Neurological exam: PRESENT: alert, oriented to person, oriented to place, oriented to time, oriented to situation, CN II-XII grossly intact. ABSENT: motor sensory deficit Psychiatric exam: PRESENT: appropriate affect, normal mood Skin exam: PRESENT: dry, intact, warm. ABSENT: jaundice, rash, urticaria Results Laboratory Results: 01/12/20 20:30 01/12/20 20:30 01/12/20 01/12/20 01/12/20 20:30 20:30 20:30 WBC 11.9 H RBC 4.80 Hgb 12.9 Hct 40.3 MCV 84 MCH 26.8 L MCHC 32.0 RDW 16.1 H Plt Count 314 Seg Neutrophils % 81.4 H Carbonic Acid HCO3/H2CO3 Ratio ABG pH ABG pCO2 ABG pO2 ABG HCO3 ABG O2 Saturation ABG Base Excess FiO2 Sodium 126.2 L Potassium 3.9 Chloride 82 L Carbon Dioxide 38 H Anion Gap 6 BUN 17 Creatinine 0.94 Est GFR ( Amer) > 60 Glucose 84 Lactic Acid 0.6 L Calcium 9.1 Magnesium 1.8 Total Bilirubin 0.3 AST 34 Alkaline Phosphatase 76 Total Protein 5.7 L Albumin 3.5 Urine Color Urine Appearance Urine pH Ur Specific [place] Urine Protein Urine Glucose (UA) Urine Ketones Urine Blood Urine RBC (Auto) 01/12/20 01/12/20 21:00 21:40 WBC RBC Hgb Hct MCV MCH MCHC RDW Plt Count Seg Neutrophils % Carbonic Acid 2.21 H HCO3/H2CO3 Ratio 17:1 ABG pH 7.35 ABG pCO2 73.4 H* ABG pO2 108.8 H ABG HCO3 39.3 H ABG O2 Saturation 97.5 ABG Base Excess 10.8 FiO2 40% Sodium Potassium Chloride Carbon Dioxide Anion Gap BUN Creatinine Est GFR ( Amer) Glucose Lactic Acid Calcium Magnesium Total Bilirubin AST Alkaline Phosphatase Total Protein Albumin Urine Color COLORLESS Urine Appearance CLEAR Urine pH 6.0 Ur Specific [place] 1.002 Urine Protein NEGATIVE Urine Glucose (UA) NEGATIVE Urine Ketones NEGATIVE Urine Blood NEGATIVE Urine RBC (Auto) 0 01/12/20 01/12/20 20:30 20:33 Troponin I 0.026 NT-Pro-B Natriuret Pep 605 H Impressions: Chest X-Ray 01/12/20 20:48 IMPRESSION: COPD No acute abnormality is identified. Assessment and Plan - Diagnosis (1) Acute pulmonary edema with congestive heart failure Is this a current diagnosis for this admission?: Yes (2) Acute on chronic congestive heart failure Qualifiers: Heart failure type: unspecified Qualified Code(s): I50.9 - Heart failure, unspecified Is this a current diagnosis for this admission?: Yes (3) Acute and chronic respiratory failure with hypoxia Is this a current diagnosis for this admission?: Yes (4) Hyponatremia Is this a current diagnosis for this admission?: Yes (5) Chronic obstructive pulmonary disease Qualifiers: COPD type: unspecified COPD Qualified Code(s): J44.9 - Chronic obstructive pulmonary disease, unspecified Is this a current diagnosis for this admission?: Yes (6) Bipolar 1 disorder Is this a current diagnosis for this admission?: Yes (7) Hypertension Qualifiers: Hypertension type: essential hypertension Qualified Code(s): I10 - Essential (primary) hypertension Is this a current diagnosis for this admission?: Yes (8) Tobacco use disorder, continuous Is this a current diagnosis for this admission?: Yes - Plan Summary Summary: Patient is admitted to observation status on the medical floor where she received routine supportive and symptomatic cares. Serial cardiac enzymes will be obtained and the patient will be maintained on oxygen support as needed to maintain an adequate O2 saturation. Her usual medications will be continued as soon as her medication list can be verified and reconciled. Nitroglycerin 2% topical will be continued 1 g every 6 hours x2 doses. She will use morphine sulfate 2 mg IV every hour as needed severe dyspnea. She will use Ativan 1 mg IV every 4 hours as needed anxiety. - Time Time Spent with patient: 25-34 minutes Medications reviewed and adjusted accordingly: Yes Anticipated discharge: Home - Inpatient Certification Based on my medical assessment, after consideration of the patient's comorbidities, presenting symptoms, or acuity I expect that the services needed warrant INPATIENT care.: No I certify that my determination is in accordance with my understanding of Medicare's requirements for reasonable and necessary INPATIENT services [42 CFR 412.3e].: No
[2020-01-13] MEDS: HEPARIN SOD (PORCINE) 5,000 UNIT/ML 1 ML VIAL SUBCUT SCH ×3 (06:07→21:23)
[2020-01-13 06:40] LABS: CREATINE KINASE MB 8.41 ng/mL (<4.55); TROPONIN I 0.021 ng/mL
[2020-01-13] MEDS: PANTOPRAZOLE SODIUM 40 MG TABLET.DR PO SCH (06:50)
[2020-01-13] MEDS: LEVALBUTEROL HCL NEB 1.25 MG/3 ML AMPUL NEB SCH ×3 (08:18→23:39)
[2020-01-13] MEDS: BUDESONIDE NEB 0.5 MG/2 ML AMPUL NEB SCH ×2 (08:18→19:59)
[2020-01-13] MEDS: IPRATROPIUM BROMIDE 0.02% NEB 0.5 MG/2.5 ML AMPUL NEB SCH ×3 (08:18→23:39)
[2020-01-13 09:03] LABS: BLOOD UREA NITROGEN 16 mg/dL (7-20); CHLORIDE 82 mmol/L (98-107); GLUCOSE 182 mg/dL (75-110); POTASSIUM 4.3 mmol/L (3.6-5.0)
[2020-01-13 09:13] LABS: ANION GAP 9 (5-19)
[2020-01-13 09:19] LABS: CARBON DIOXIDE 43 mmol/L (22-30)
[2020-01-13] MEDS: GUAIFENESIN SYRP 200 MG/10 ML UDC PO PRN ×2 (09:31→18:18)
[2020-01-13] MEDS: DOCUSATE SODIUM 100 MG CAPSULE PO SCH (09:31)
[2020-01-13 13:11] LABS: CREATINE KINASE MB 8.72 ng/mL (<4.55); TROPONIN I 0.019 ng/mL
--- NOTE | 2020-01-13 13:58 | PDOC PROGRESS REPORT ---
Subjective Progress Note for:: 01/13/20 Subjective:: Breathing mildly improved Still wheezing Reason For Visit: ACUTE CONGESTIVE HEART FAILURE Physical Exam Vital Signs: Temp Pulse Resp BP Pulse Ox 97.6 F 99 18 158/67 H 97 01/13/20 10:56 01/13/20 10:56 01/13/20 10:56 01/13/20 10:56 01/13/20 10:56 Intake & Output 01/12/20 01/13/20 01/14/20 06:59 06:59 06:59 Intake Total 360 510 Output Total 700 Balance -340 510 Weight 57.8 kg General appearance: PRESENT: no acute distress, thin, other - chronically ill looking Head exam: PRESENT: atraumatic Neck exam: PRESENT: full ROM. ABSENT: JVD Respiratory exam: PRESENT: decreased breath sounds, rhonchi, unlabored, wheezes. ABSENT: tachypnea Cardiovascular exam: PRESENT: RRR, +S1, +S2 GI/Abdominal exam: PRESENT: normal bowel sounds, soft Rectal exam: PRESENT: deferred Extremities exam: PRESENT: full ROM Neurological exam: PRESENT: alert, awake, oriented to person, oriented to place, oriented to time, oriented to situation Results Laboratory Results: 01/12/20 20:30 01/13/20 08:32 01/12/20 01/12/20 01/12/20 20:30 20:30 20:30 WBC 11.9 H RBC 4.80 Hgb 12.9 Hct 40.3 MCV 84 MCH 26.8 L MCHC 32.0 RDW 16.1 H Plt Count 314 Seg Neutrophils % 81.4 H Carbonic Acid HCO3/H2CO3 Ratio ABG pH ABG pCO2 ABG pO2 ABG HCO3 ABG O2 Saturation ABG Base Excess FiO2 Sodium 126.2 L Potassium 3.9 Chloride 82 L Carbon Dioxide 38 H Anion Gap 6 BUN 17 Creatinine 0.94 Est GFR ( Amer) > 60 Glucose 84 Lactic Acid 0.6 L Calcium 9.1 Magnesium 1.8 Total Bilirubin 0.3 AST 34 Alkaline Phosphatase 76 Total Protein 5.7 L Albumin 3.5 Urine Color Urine Appearance Urine pH Ur Specific [place] Urine Protein Urine Glucose (UA) Urine Ketones Urine Blood Urine RBC (Auto) 01/12/20 01/12/20 01/13/20 21:00 21:40 08:32 WBC RBC Hgb Hct MCV MCH MCHC RDW Plt Count Seg Neutrophils % Carbonic Acid 2.21 H HCO3/H2CO3 Ratio 17:1 ABG pH 7.35 ABG pCO2 73.4 H* ABG pO2 108.8 H ABG HCO3 39.3 H ABG O2 Saturation 97.5 ABG Base Excess 10.8 FiO2 40% Sodium 133.5 L Potassium 4.3 Chloride 82 L Carbon Dioxide 43 H* Anion Gap 9 BUN 16 Creatinine 0.98 Est GFR ( Amer) > 60 Glucose 182 H Lactic Acid Calcium 9.0 Magnesium Total Bilirubin AST Alkaline Phosphatase Total Protein Albumin Urine Color COLORLESS Urine Appearance CLEAR Urine pH 6.0 Ur Specific [place] 1.002 Urine Protein NEGATIVE Urine Glucose (UA) NEGATIVE Urine Ketones NEGATIVE Urine Blood NEGATIVE Urine RBC (Auto) 0 01/12/20 01/12/20 01/12/20 20:30 20:30 20:33 Creatine Kinase 136 H CK-MB (CK-2) Troponin I 0.026 NT-Pro-B Natriuret Pep 605 H 01/13/20 01/13/20 01/13/20 00:30 00:56 05:16 Creatine Kinase 89 58 CK-MB (CK-2) 10.40 H Troponin I 0.028 NT-Pro-B Natriuret Pep 01/13/20 01/13/20 05:16 12:32 Creatine Kinase CK-MB (CK-2) 8.41 H 8.72 H Troponin I 0.021 0.019 NT-Pro-B Natriuret Pep Impressions: Chest X-Ray 01/12/20 20:48 IMPRESSION: COPD No acute abnormality is identified. Assessment and Plan - Diagnosis (1) Acute and chronic respiratory failure ([id number]) Qualifiers: Respiratory failure complication: hypercapnia Qualified Code(s): J96.22 - Acute and chronic respiratory failure with hypercapnia Is this a current diagnosis for this admission?: Yes (2) Chronic obstructive pulmonary disease Qualifiers: COPD type: unspecified COPD Qualified Code(s): J44.9 - Chronic obstructive pulmonary disease, unspecified Is this a current diagnosis for this admission?: Yes (3) Tobacco use disorder, continuous Is this a current diagnosis for this admission?: Yes (4) Disturbance of acid-base balance Is this a current diagnosis for this admission?: Yes Plan: With compensated acidosis (5) Hyponatremia Is this a current diagnosis for this admission?: Yes Plan: Initial sodium was 126, it is 133 today. Hyponatremia could be secondary to steroid as well as diuretic use. We will follow-up and recheck in a.m. 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 Significance is unclear. Troponin is within normal as well as total creatinine kinase. Patient also has no chest pain. Patient also is still wheezing and still short of breath. She is unable to go home at this point. I have placed on Solu-Medrol IV. She had been on prednisone at home which she finished a few days ago and appears she had a relapse once that was discontinued
[2020-01-13] MEDS: FUROSEMIDE 20 MG TABLET PO SCH (15:09)
[2020-01-13] MEDS: METHYLPREDNISOLONE INJ 40 MG/1 ML SDV IV SCH ×2 (15:09→21:23)
[2020-01-13] MEDS: ARIPIPRAZOLE 5 MG TABLET PO SCH (15:09)
[2020-01-13] MEDS: CITALOPRAM HYDROBROMIDE 20 MG TABLET PO SCH (15:09)
[2020-01-13 15:16] LABS: BLOOD UREA NITROGEN 17 mg/dL (7-20); CALCIUM 8.8 mg/dL (8.4-10.2); CHLORIDE 82 mmol/L (98-107); GLUCOSE 87 mg/dL (75-110); POTASSIUM 4.4 mmol/L (3.6-5.0)
[2020-01-13 15:22] LABS: ANION GAP 8 (5-19); CARBON DIOXIDE 39 mmol/L (22-30)
[2020-01-13] MEDS: BENZTROPINE MESYLATE 1 MG TABLET PO SCH (17:51)
[2020-01-13] MEDS: MORPHINE SULFATE 10 MG/ML INJ IV PRN (18:18)
[2020-01-13] MEDS: LEVALBUTEROL HCL NEB 0.63 MG/3 ML AMPUL NEB PRN (19:59)
[2020-01-13] MEDS: RISPERIDONE 1 MG TABLET PO SCH (21:23)
[2020-01-13] MEDS: BUPROPION HCL 75 MG TABLET PO SCH (21:24)
--- NOTE | 2020-01-13 21:55 | EKG REPORT ---
SEVERITY:- ABNORMAL ECG - SINUS TACHYCARDIA INCOMPLETE RIGHT BUNDLE BRANCH BLOCK : Confirmed by: Batsheva Rivas 13-Jan-2020 21:54:43
[2020-01-13] MEDS ORDERED: (PENDING PHARMACY ID) (Risperidone [Risperdal] 3 MG) PO SCH (22:00)
[2020-01-14 05:33] LABS: ABSOLUTE LYMPHOCYTES (AUTO) 0.5 10^3/uL (0.5-4.7); ABSOLUTE MONOCYTES (AUTO) 0.5 10^3/uL (0.1-1.4); ABSOLUTE NEUT (AUTO) 6.1 10^3/uL (1.7-8.2); BASOPHILS % (AUTO) 0.2 % (0-2); HEMATOCRIT 38.8 % (36.0-47.0); HEMOGLOBIN 12.7 g/dL (12.0-15.5); LYMPHOCYTES % (AUTO) 6.5 % (13-45); MEAN CORPUSCULAR HEMOGLOBIN 27.3 pg (27.0-33.4); MEAN CORPUSCULAR HGB CONC 32.7 g/dL (32.0-36.0); MEAN CORPUSCULAR VOLUME 84 fl (80-97); MONOCYTES % (AUTO) 7.7 % (3-13); PLATELET COUNT 275 10^3/uL (150-450); RED BLOOD COUNT 4.64 10^6/uL (3.72-5.28); RED CELL DISTRIBUTION WIDTH 15.6 % (11.5-14.0); SEGMENTED NEUTROPHILS % (AUTO) 85.6 % (42-78); TOTAL CELLS COUNTED % (AUTO) 100 %; WHITE BLOOD COUNT 7.1 10^3/uL (4.0-10.5)
[2020-01-14] MEDS: PANTOPRAZOLE SODIUM 40 MG TABLET.DR PO SCH (05:49)
[2020-01-14] MEDS: METHYLPREDNISOLONE INJ 40 MG/1 ML SDV IV SCH ×3 (05:49→21:15)
[2020-01-14] MEDS: HEPARIN SOD (PORCINE) 5,000 UNIT/ML 1 ML VIAL SUBCUT SCH ×3 (05:50→21:15)
[2020-01-14] MEDS: MORPHINE SULFATE 10 MG/ML INJ IV PRN ×3 (07:07→19:36)
[2020-01-14] MEDS: LEVALBUTEROL HCL NEB 1.25 MG/3 ML AMPUL NEB SCH ×3 (08:39→23:32)
[2020-01-14] MEDS: IPRATROPIUM BROMIDE 0.02% NEB 0.5 MG/2.5 ML AMPUL NEB SCH ×3 (08:39→23:32)
[2020-01-14] MEDS: BUDESONIDE NEB 0.5 MG/2 ML AMPUL NEB SCH ×2 (08:39→20:11)
[2020-01-14] MEDS ORDERED: LEVOFLOXACIN 500 MG TABLET PO SCH (10:00)
[2020-01-14] MEDS ORDERED: (PENDING PHARMACY ID) (Citalopram Hydrobromide [Celexa 40 Mg Tablet] 40 MG) PO SCH (10:00)
[2020-01-14] MEDS: BUPROPION HCL 75 MG TABLET PO SCH ×2 (10:18→21:16)
[2020-01-14] MEDS: BENZTROPINE MESYLATE 1 MG TABLET PO SCH ×2 (10:18→17:38)
[2020-01-14] MEDS: RISPERIDONE 1 MG TABLET PO SCH ×2 (10:18→21:16)
[2020-01-14] MEDS: CITALOPRAM HYDROBROMIDE 20 MG TABLET PO SCH (10:19)
[2020-01-14] MEDS: SPIRONOLACTONE 25 MG TABLET PO SCH (10:19)
[2020-01-14] MEDS: FUROSEMIDE 20 MG TABLET PO SCH (10:19)
[2020-01-14] MEDS: DOCUSATE SODIUM 100 MG CAPSULE PO SCH (10:20)
[2020-01-14] MEDS: ARIPIPRAZOLE 5 MG TABLET PO SCH (10:24)
[2020-01-14 16:14] LABS: BLOOD UREA NITROGEN 17 mg/dL (7-20); CALCIUM 8.9 mg/dL (8.4-10.2); CHLORIDE 86 mmol/L (98-107); GLUCOSE 91 mg/dL (75-110); POTASSIUM 4.7 mmol/L (3.6-5.0)
[2020-01-14 16:30] LABS: ANION GAP 2 (5-19)
[2020-01-14 16:31] LABS: CARBON DIOXIDE 44 mmol/L (22-30)
--- NOTE | 2020-01-14 16:49 | PDOC PROGRESS REPORT ---
Subjective Progress Note for:: 01/14/20 Subjective:: Breathing mildly improved Still wheezing but patient feels that she is better today. She denies any cough or chest pain Reason For Visit: ACUTE CONGESTIVE HEART FAILURE Physical Exam Vital Signs: Temp Pulse Resp BP Pulse Ox 97.8 F 112 H 16 139/68 H 98 01/14/20 10:50 01/14/20 14:14 01/14/20 10:50 01/14/20 14:14 01/14/20 10:50 Intake & Output 01/13/20 01/14/20 01/15/20 06:59 06:59 06:59 Intake Total 360 2068 460 Output Total 700 1100 500 Balance -340 968 -40 Weight 57.8 kg 57.1 kg General appearance: PRESENT: thin, other - Chronically ill looking Neck exam: PRESENT: full ROM. ABSENT: JVD, tenderness Respiratory exam: PRESENT: rhonchi - Expiratory, unlabored, wheezes. ABSENT: accessory muscle use Cardiovascular exam: PRESENT: +S1, +S2, tachycardia GI/Abdominal exam: PRESENT: soft. ABSENT: tenderness Rectal exam: PRESENT: deferred Neurological exam: PRESENT: alert, awake, oriented to person, oriented to place, oriented to time, oriented to situation Results Laboratory Results: 01/14/20 05:01 01/14/20 05:01 01/14/20 01/14/20 05:01 05:01 WBC 7.1 RBC 4.64 Hgb 12.7 Hct 38.8 MCV 84 MCH 27.3 MCHC 32.7 RDW 15.6 H Plt Count 275 Seg Neutrophils % 85.6 H Sodium 131.8 L Potassium 4.7 Chloride 86 L Carbon Dioxide 44 H* Anion Gap 2 L BUN 17 Creatinine 0.85 Est GFR ( Amer) > 60 Glucose 91 Calcium 8.9 01/12/20 01/12/20 01/12/20 20:30 20:30 20:33 Creatine Kinase 136 H CK-MB (CK-2) Troponin I 0.026 NT-Pro-B Natriuret Pep 605 H 01/13/20 01/13/20 01/13/20 00:30 00:56 05:16 Creatine Kinase 89 58 CK-MB (CK-2) 10.40 H Troponin I 0.028 NT-Pro-B Natriuret Pep 01/13/20 01/13/20 05:16 12:32 Creatine Kinase CK-MB (CK-2) 8.41 H 8.72 H Troponin I 0.021 0.019 NT-Pro-B Natriuret Pep Impressions: Chest X-Ray 01/12/20 20:48 IMPRESSION: COPD No acute abnormality is identified. Assessment and Plan - Diagnosis (1) Acute and chronic respiratory failure ([id number]) Qualifiers: Respiratory failure complication: hypercapnia Qualified Code(s): J96.22 - Acute and chronic respiratory failure with hypercapnia Is this a current diagnosis for this admission?: Yes Plan: Continue with oxygen support. Patient may benefit from CPAP. Will reevaluate and decide if follow-up ABG is needed in a.m. (2) Chronic obstructive pulmonary disease Qualifiers: COPD type: unspecified COPD Qualified Code(s): J44.9 - Chronic obstructive pulmonary disease, unspecified Is this a current diagnosis for this admission?: Yes Plan: Continue with steroids and taper as per response (3) Tobacco use disorder, continuous Is this a current diagnosis for this admission?: Yes (4) Disturbance of acid-base balance Is this a current diagnosis for this admission?: Yes Plan: With compensated acidosis with a near normal pH however is also noted that patient is hypochloremic and hyponatremic although her sodium is improved. She was started on Aldactone and so I have decided to hold this for now as patient may be developing a contraction alkalosis. We will follow-up with BMP and BNP in a.m. (5) Hyponatremia Is this a current diagnosis for this admission?: Yes Plan: Initial sodium was 126, it is 133 today. Hyponatremia could be secondary to steroid as well as diuretic use. We will follow-up and recheck in a.m. 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 Significance is unclear. Troponin is within normal as well as total creatinine kinase. Patient also has no chest pain. Patient also is still wheezing and still short of breath. She is unable to go home at this point. I have placed on Solu-Medrol IV. She had been on predniso ne at home which she finished a few days ago and appears she had a relapse once that was discontinued 01/14 patient still wheezing although he seems to be improved. Her blood pressure was also noted to be elevated and patient was tachycardic. I have added bystolic to her regimen
[2020-01-14] MEDS ORDERED: FLUTICASONE NASAL SPRAY 50 MCG/SPRY 120 SPRAY/16 GM ONE (17:16)
[2020-01-14] MEDS: NEBIVOLOL HCL 10 MG TABLET PO SCH (17:38)
[2020-01-14 18:21] LABS: BLOOD UREA NITROGEN 18 mg/dL (7-20); CALCIUM 8.9 mg/dL (8.4-10.2); CHLORIDE 82 mmol/L (98-107); GLUCOSE 236 mg/dL (75-110); POTASSIUM 3.9 mmol/L (3.6-5.0)
[2020-01-14 18:28] LABS: ANION GAP 6 (5-19)
[2020-01-14 18:29] LABS: CARBON DIOXIDE 41 mmol/L (22-30)
[2020-01-14] MEDS: LEVALBUTEROL HCL NEB 0.63 MG/3 ML AMPUL NEB PRN (20:11)
[2020-01-14] MEDS: FLUTICASONE NASAL SPRAY 50 MCG/SPRY 120 SPRAY/16 GM NASL SCH (21:15)
[2020-01-15] MEDS: PANTOPRAZOLE SODIUM 40 MG TABLET.DR PO SCH (05:27)
[2020-01-15] MEDS: HEPARIN SOD (PORCINE) 5,000 UNIT/ML 1 ML VIAL SUBCUT SCH ×3 (05:27→21:31)
[2020-01-15] MEDS: METHYLPREDNISOLONE INJ 40 MG/1 ML SDV IV SCH ×3 (05:27→21:31)
[2020-01-15] MEDS: MORPHINE SULFATE 10 MG/ML INJ IV PRN ×2 (05:30→20:23)
[2020-01-15] MEDS: NICOTINE 21 MG/24 HR PATCH.TD24 TD PRN (05:40)
[2020-01-15 06:25] LABS: ABSOLUTE LYMPHOCYTES (AUTO) 0.5 10^3/uL (0.5-4.7); ABSOLUTE MONOCYTES (AUTO) 0.6 10^3/uL (0.1-1.4); ABSOLUTE NEUT (AUTO) 7.4 10^3/uL (1.7-8.2); BASOPHILS % (AUTO) 0.3 % (0-2); HEMOGLOBIN 12.8 g/dL (12.0-15.5); MEAN CORPUSCULAR HEMOGLOBIN 27.3 pg (27.0-33.4); MEAN CORPUSCULAR HGB CONC 32.8 g/dL (32.0-36.0); MEAN CORPUSCULAR VOLUME 83 fl (80-97); MONOCYTES % (AUTO) 6.6 % (3-13); PLATELET COUNT 292 10^3/uL (150-450); RED BLOOD COUNT 4.68 10^6/uL (3.72-5.28); RED CELL DISTRIBUTION WIDTH 15.7 % (11.5-14.0); SEGMENTED NEUTROPHILS % (AUTO) 87.1 % (42-78); TOTAL CELLS COUNTED % (AUTO) 100 %; WHITE BLOOD COUNT 8.5 10^3/uL (4.0-10.5)
[2020-01-15 06:41] LABS: BLOOD UREA NITROGEN 21 mg/dL (7-20); CALCIUM 9.1 mg/dL (8.4-10.2); CHLORIDE 85 mmol/L (98-107); GLUCOSE 88 mg/dL (75-110); POTASSIUM 4.4 mmol/L (3.6-5.0)
[2020-01-15 06:56] LABS: CARBON DIOXIDE 43 mmol/L (22-30)
[2020-01-15 08:00] LABS: ANION GAP 3 (5-19)
[2020-01-15] MEDS: BUDESONIDE NEB 0.5 MG/2 ML AMPUL NEB SCH ×2 (08:45→20:30)
[2020-01-15] MEDS: LEVALBUTEROL HCL NEB 1.25 MG/3 ML AMPUL NEB SCH ×3 (08:45→23:50)
[2020-01-15] MEDS: IPRATROPIUM BROMIDE 0.02% NEB 0.5 MG/2.5 ML AMPUL NEB SCH ×3 (08:45→23:50)
[2020-01-15] MEDS: ARIPIPRAZOLE 5 MG TABLET PO SCH (09:54)
[2020-01-15] MEDS: FLUTICASONE NASAL SPRAY 50 MCG/SPRY 120 SPRAY/16 GM NASL SCH ×2 (09:54→21:31)
[2020-01-15] MEDS: BUPROPION HCL 75 MG TABLET PO SCH ×2 (09:54→21:31)
[2020-01-15] MEDS: BENZTROPINE MESYLATE 1 MG TABLET PO SCH ×2 (09:55→17:22)
[2020-01-15] MEDS: DOCUSATE SODIUM 100 MG CAPSULE PO SCH (09:55)
[2020-01-15] MEDS: FUROSEMIDE 20 MG TABLET PO SCH (09:55)
[2020-01-15] MEDS: RISPERIDONE 1 MG TABLET PO SCH ×2 (09:56→21:31)
[2020-01-15] MEDS: CITALOPRAM HYDROBROMIDE 20 MG TABLET PO SCH (09:56)
[2020-01-15] MEDS: NEBIVOLOL HCL 10 MG TABLET PO SCH (09:56)
[2020-01-15 09:59] LABS: VENOUS BLOOD BASE EXCESS 12.4 mmol/L; VENOUS BLOOD HCO3 42.1 mmol/L (20-32); VENOUS BLOOD PH 7.33 (7.30-7.42)
--- NOTE | 2020-01-15 15:12 | PDOC PROGRESS REPORT ---
Subjective Progress Note for:: 01/15/20 Subjective:: Patient still feels like she is wheezing. I discussed with patient about not wearing her BiPAP and she is now agreeable to trying the BiPAP. Patient states that she uses 3 L of nasal cannula at home which she wears all the time. Patient also has a BiPAP machine at home which he is meant to use every night but only uses it on occasion. I have counseled patient about the importance of using BiPAP machine every night. Reason For Visit: ACUTE CONGESTIVE HEART FAILURE Physical Exam Vital Signs: Temp Pulse Resp BP Pulse Ox 97.9 F 77 17 123/74 98 01/15/20 11:40 01/15/20 11:40 01/15/20 11:40 01/15/20 11:40 01/15/20 11:40 Intake & Output 01/14/20 01/15/20 01/16/20 06:59 06:59 06:59 Intake Total 2068 2540 1200 Output Total 1100 4150 1200 Balance 968 -1610 0 Weight 57.1 kg 57.2 kg General appearance: PRESENT: no acute distress, cooperative Neck exam: ABSENT: JVD Respiratory exam: PRESENT: symmetrical, unlabored, wheezes. ABSENT: tachypnea Cardiovascular exam: PRESENT: RRR, +S1, +S2. ABSENT: tachycardia GI/Abdominal exam: PRESENT: soft. ABSENT: distended, rebound, rigid, tenderness Neurological exam: PRESENT: alert, awake, oriented to person, oriented to place, oriented to time, oriented to situation Results Laboratory Results: 01/15/20 05:41 01/15/20 05:41 01/14/20 01/14/20 01/15/20 05:01 17:45 05:41 WBC RBC Hgb Hct MCV MCH MCHC RDW Plt Count Seg Neutrophils % VBG pH VBG pCO2 VBG HCO3 VBG Base Excess Sodium 131.8 L 129.2 L 130.7 L Potassium 4.7 3.9 4.4 Chloride 86 L 82 L 85 L Carbon Dioxide 44 H* 41 H* 43 H* Anion Gap 2 L 6 3 L BUN 17 18 21 H Creatinine 0.85 1.01 0.94 Est GFR ( Amer) > 60 > 60 > 60 Glucose 91 236 H 88 Calcium 8.9 8.9 9.1 01/15/20 01/15/20 05:41 09:41 WBC 8.5 RBC 4.68 Hgb 12.8 Hct 39.0 MCV 83 MCH 27.3 MCHC 32.8 RDW 15.7 H Plt Count 292 Seg Neutrophils % 87.1 H VBG pH 7.33 VBG pCO2 82.0 H* VBG HCO3 42.1 H VBG Base Excess 12.4 Sodium Potassium Chloride Carbon Dioxide Anion Gap BUN Creatinine Est GFR ( Amer) Glucose Calcium 01/12/20 01/12/20 01/12/20 20:30 20:30 20:33 Creatine Kinase 136 H CK-MB (CK-2) Troponin I 0.026 NT-Pro-B Natriuret Pep 605 H 01/13/20 01/13/20 01/13/20 00:30 00:56 05:16 Creatine Kinase 89 58 CK-MB (CK-2) 10.40 H Troponin I 0.028 NT-Pro-B Natriuret Pep 01/13/20 01/13/20 01/15/20 05:16 12:32 05:41 Creatine Kinase CK-MB (CK-2) 8.41 H 8.72 H Troponin I 0.021 0.019 NT-Pro-B Natriuret Pep 401 H Impressions: Chest X-Ray 01/12/20 20:48 IMPRESSION: COPD No acute abnormality is identified. Assessment and Plan - Diagnosis (1) Acute and chronic respiratory failure ([id number]) Qualifiers: Respiratory failure complication: hypoxia and hypercapnia Qualified Code(s): J96.21 - Acute and chronic respiratory failure with hypoxia; J96.22 - Acute and chronic respiratory failure with hypercapnia Is this a current diagnosis for this admission?: Yes Plan: Patient uses 3 L nasal cannula at home on nocturnal BiPAP at home as well. All secondary to COPD. Venous blood gas today showing mild respiratory acidosis with PCO2 in the 80s but with metabolic compensation pH of 7.33. Instruction given earlier today to place patient on BiPAP for about 2 hours. Patient is to be continued on 2 L nasal cannula as well as nocturnal BiPAP while inpatient. (2) COPD exacerbation Is this a current diagnosis for this admission?: Yes Plan: Patient seems to have advanced COPD on 3 L home oxygen on nocturnal BiPAP as well as prophylactic therapy with azithromycin 3 times a week. Echocardiogram done in August 2019 reveals an ejection fraction of 60% with right ventricular dilatation and severe pulmonary hypertension and right ventricular systolic function that is mild to moderately reduced Still notably has very significant bilateral wheezing on exam. Continue with nebulizers and steroids IV. Maintain on budesonide inhaler as well. She will likely benefit from both LABA/ICS/L AMA upon discharge. Continue azithromycin. (3) Hyponatremia Is this a current diagnosis for this admission?: Yes Plan: Initial sodium was 126, it is 130 today. There are multiple potential causes of patient's hyponatremia including patient's SSRI, Lasix. Check serum and urine osmolarity. Unfortunately FENa will be of limited benefit to giving chronic diuretic use. Hold Celexa for now.patient already received a.m. dose today. Check TSH. Continue to monitor BMP (4) Protein-calorie malnutrition, moderate Is this a current diagnosis for this admission?: Yes Plan: Likely secondary to underlying pulmonary wasting given advanced COPD. (5) Tobacco use disorder, continuous Is this a current diagnosis for this admission?: Yes Plan: Nicotine patch offered - Time Time Spent with patient: 15-24 minutes
[2020-01-15 15:23] LABS: VENOUS BLOOD BASE EXCESS 15.2 mmol/L; VENOUS BLOOD HCO3 45.8 mmol/L (20-32); VENOUS BLOOD PH 7.33 (7.30-7.42)
[2020-01-15 15:33] LABS: VENOUS BLOOD PCO2 88.7 mmHg (35-63)
[2020-01-15] MEDS: LEVALBUTEROL HCL NEB 0.63 MG/3 ML AMPUL NEB PRN (20:30)
[2020-01-16] MEDS: PANTOPRAZOLE SODIUM 40 MG TABLET.DR PO SCH (05:18)
[2020-01-16] MEDS: METHYLPREDNISOLONE INJ 40 MG/1 ML SDV IV SCH ×3 (05:19→22:01)
[2020-01-16] MEDS: HEPARIN SOD (PORCINE) 5,000 UNIT/ML 1 ML VIAL SUBCUT SCH ×3 (05:19→22:00)
[2020-01-16] MEDS: NICOTINE 21 MG/24 HR PATCH.TD24 TD PRN (05:26)
[2020-01-16 06:43] LABS: VENOUS BLOOD BASE EXCESS 16.4 mmol/L; VENOUS BLOOD HCO3 47.2 mmol/L (20-32); VENOUS BLOOD PH 7.32 (7.30-7.42)
[2020-01-16 06:46] LABS: VENOUS BLOOD PCO2 93.9 mmHg (35-63)
[2020-01-16 07:15] LABS: BLOOD UREA NITROGEN 29 mg/dL (7-20); CALCIUM 8.8 mg/dL (8.4-10.2); GLUCOSE 155 mg/dL (75-110); POTASSIUM 4.2 mmol/L (3.6-5.0)
[2020-01-16 07:34] LABS: ANION GAP 3 (5-19); CARBON DIOXIDE 41 mmol/L (22-30); CHLORIDE 87 mmol/L (98-107)
[2020-01-16] MEDS: LEVALBUTEROL HCL NEB 1.25 MG/3 ML AMPUL NEB SCH (08:45)
[2020-01-16] MEDS: IPRATROPIUM BROMIDE 0.02% NEB 0.5 MG/2.5 ML AMPUL NEB SCH (08:45)
[2020-01-16] MEDS: BUDESONIDE NEB 0.5 MG/2 ML AMPUL NEB SCH (08:45)
[2020-01-16] MEDS: BENZTROPINE MESYLATE 1 MG TABLET PO SCH ×2 (10:17→17:54)
[2020-01-16] MEDS: MORPHINE SULFATE 10 MG/ML INJ IV PRN ×2 (10:17→17:59)
[2020-01-16] MEDS: DOCUSATE SODIUM 100 MG CAPSULE PO SCH (10:17)
[2020-01-16] MEDS: FUROSEMIDE 20 MG TABLET PO SCH (10:17)
[2020-01-16] MEDS: RISPERIDONE 1 MG TABLET PO SCH ×2 (10:19→22:02)
[2020-01-16] MEDS: FLUTICASONE NASAL SPRAY 50 MCG/SPRY 120 SPRAY/16 GM NASL SCH ×2 (10:19→22:00)
[2020-01-16] MEDS: BUPROPION HCL 75 MG TABLET PO SCH ×2 (10:19→22:01)
[2020-01-16] MEDS: NEBIVOLOL HCL 10 MG TABLET PO SCH (10:20)
[2020-01-16] MEDS: ARIPIPRAZOLE 5 MG TABLET PO SCH (10:20)
--- NOTE | 2020-01-16 13:39 | PDOC PROGRESS REPORT ---
Subjective Progress Note for:: 01/16/20 Subjective:: Patient states her breathing is better. Patient ambulated with her Oxymizer and did well. She also states that she slept with the BiPAP last night. However VBG this morning still show significant hypercapnia. I discussed with patient that she will require to be here for another day for frequent nebs and steroids. Reason For Visit: ACUTE CONGESTIVE HEART FAILURE Physical Exam Vital Signs: Temp Pulse Resp BP Pulse Ox 97.8 F 95 24 H 104/64 100 01/16/20 12:22 01/16/20 12:22 01/16/20 12:22 01/16/20 12:22 01/16/20 12:22 Intake & Output 01/15/20 01/16/20 01/17/20 06:59 06:59 06:59 Intake Total 2540 2355 Output Total 4150 2100 Balance -1610 255 Weight 57.2 kg 56.6 kg General appearance: PRESENT: no acute distress, cooperative Neck exam: ABSENT: JVD Respiratory exam: PRESENT: symmetrical, unlabored, wheezes. ABSENT: crackles, tachypnea Cardiovascular exam: PRESENT: RRR, +S1, +S2. ABSENT: tachycardia GI/Abdominal exam: PRESENT: normal bowel sounds, soft. ABSENT: rebound, rigid, tenderness Extremities exam: ABSENT: pedal edema Neurological exam: PRESENT: alert, awake, oriented to person, oriented to place, oriented to time Psychiatric exam: ABSENT: anxious Results Laboratory Results: 01/15/20 05:41 01/16/20 06:11 01/15/20 01/15/20 01/15/20 15:13 15:36 15:36 VBG pH 7.33 VBG pCO2 88.7 H* VBG HCO3 45.8 H VBG Base Excess 15.2 Sodium Potassium Chloride Carbon Dioxide Anion Gap BUN Creatinine Est GFR ( Amer) Glucose Serum Osmolality 286 Calcium TSH 1.08 Urine Osmolality 01/15/20 01/16/20 01/16/20 20:30 06:11 06:11 VBG pH 7.32 VBG pCO2 93.9 H* VBG HCO3 47.2 H VBG Base Excess 16.4 Sodium 131.3 L Potassium 4.2 Chloride 87 L Carbon Dioxide 41 H* Anion Gap 3 L BUN 29 H Creatinine 0.99 Est GFR ( Amer) > 60 Glucose 155 H Serum Osmolality Calcium 8.8 TSH Urine Osmolality 215 L 01/12/20 01/12/20 01/12/20 20:30 20:30 20:33 Creatine Kinase 136 H CK-MB (CK-2) Troponin I 0.026 NT-Pro-B Natriuret Pep 605 H 01/13/20 01/13/20 01/13/20 00:30 00:56 05:16 Creatine Kinase 89 58 CK-MB (CK-2) 10.40 H Troponin I 0.028 NT-Pro-B Natriuret Pep 01/13/20 01/13/20 01/15/20 05:16 12:32 05:41 Creatine Kinase CK-MB (CK-2) 8.41 H 8.72 H Troponin I 0.021 0.019 NT-Pro-B Natriuret Pep 401 H Impressions: Chest X-Ray 01/12/20 20:48 IMPRESSION: COPD No acute abnormality is identified. Assessment and Plan - Diagnosis (1) Acute and chronic respiratory failure ([id number]) Qualifiers: Respiratory failure complication: hypoxia and hypercapnia Qualified Code(s): J96.21 - Acute and chronic respiratory failure with hypoxia; J96.22 - Acute and chronic respiratory failure with hypercapnia Is this a current diagnosis for this admission?: Yes Plan: Patient uses 3 L nasal cannula at home on nocturnal CPAP at home as well. All secondary to COPD. Patient continues to have significant a.m. hypercarpnia with PCO2 of 93 on VBG this morning even despite sleeping with BiPAP. This is likely from her COPD. I will adjust patient's BiPAP settings and increase IPAP to 18. We will check ABG tomorrow morning. (2) COPD exacerbation Is this a current diagnosis for this admission?: Yes Plan: Patient seems to have advanced COPD on 3 L home oxygen on nocturnal CPAP as well as prophylactic therapy with azithromycin 3 times a week. Echocardiogram done in August 2019 reveals an ejection fraction of 60% with right ventricular dilatation and severe pulmonary hypertension and right ventricular systolic function that is mild to moderately reduced Still notably has very significant bilateral wheezing on exam. She will likely benefit from both LABA/ICS/L AMA upon discharge. Continue azithromycin. Placed on Breo Ellipta. Discontinue Xopenex and change to DuoNebs with more frequent treatments every 6 hours. Continue IV Solu-Medrol for now. (3) Hyponatremia Is this a current diagnosis for this admission?: Yes Plan: Initial sodium was 126, but has improved. There are multiple potential causes of patient's hyponatremia including patient's SSRI, Lasix. Continue to hold Celexa Serum osmolarity is normal and urine osmolarity is low making SIADH unlikely. TSH is normal as well. Will monitor BMP for now. (4) Protein-calorie malnutrition, moderate Is this a current diagnosis for this admission?: Yes (5) Tobacco use disorder, continuous Is this a current diagnosis for this admission?: Yes - Time Time Spent with patient: 15-24 minutes
[2020-01-16] MEDS: IPRATROPIUM/ALBUTEROL 0.5-2.5 MG/3 ML AMPUL NEB SCH ×2 (14:37→20:16)
[2020-01-16] MEDS: FLUTICASONE/VILANTEROL 200-25 MCG/DOSE IH SCH (22:01)
[2020-01-17 00:56] VITALS: BP 109/48
[2020-01-17] MEDS: IPRATROPIUM/ALBUTEROL 0.5-2.5 MG/3 ML AMPUL NEB SCH ×2 (02:18→08:36)
[2020-01-17] MEDS: HEPARIN SOD (PORCINE) 5,000 UNIT/ML 1 ML VIAL SUBCUT SCH (05:55)
[2020-01-17] MEDS: PANTOPRAZOLE SODIUM 40 MG TABLET.DR PO SCH (05:55)
[2020-01-17] MEDS: METHYLPREDNISOLONE INJ 40 MG/1 ML SDV IV SCH (05:55)
[2020-01-17] MEDS: MORPHINE SULFATE 10 MG/ML INJ IV PRN (06:02)
[2020-01-17 07:04] LABS: ARTERIAL BLOOD BASE EXCESS 14.2 mmol/L; ARTERIAL BLOOD H2CO3 2.25 mmol/L (1.05-1.35); ARTERIAL BLOOD HCO3 42.9 mmol/L (20-24); ARTERIAL BLOOD O2 SATURATION 72.1 % (94-98); ARTERIAL BLOOD PH 7.38 (7.35-7.45); ARTERIAL BLOOD TOTAL CO2 45.2 mmol/L (21-25)
[2020-01-17 07:06] LABS: ARTERIAL BLOOD FIO2 ROOM AIR; ARTERIAL BLOOD PCO2 74.6 mmHg (35-45); ARTERIAL BLOOD PO2 40.6 mmHg (80-100)
[2020-01-17] MEDS ORDERED: AZITHROMYCIN 250 MG TABLET PO SCH (10:00)
[2020-01-17] MEDS: NEBIVOLOL HCL 10 MG TABLET PO SCH (10:11)
[2020-01-17] MEDS: DOCUSATE SODIUM 100 MG CAPSULE PO SCH (10:11)
[2020-01-17] MEDS: BENZTROPINE MESYLATE 1 MG TABLET PO SCH (10:11)
[2020-01-17] MEDS: FLUTICASONE/VILANTEROL 200-25 MCG/DOSE IH SCH (10:11)
[2020-01-17] MEDS: FUROSEMIDE 20 MG TABLET PO SCH (10:11)
[2020-01-17] MEDS: ARIPIPRAZOLE 5 MG TABLET PO SCH (10:12)
[2020-01-17] MEDS: BUPROPION HCL 75 MG TABLET PO SCH (10:12)
[2020-01-17] MEDS: RISPERIDONE 1 MG TABLET PO SCH (10:12)
[2020-01-17] MEDS: FLUTICASONE NASAL SPRAY 50 MCG/SPRY 120 SPRAY/16 GM NASL SCH (10:17)
--- NOTE | 2020-01-17 12:27 | PDOC DISCHARGE SUMMARY ---
Impression - Admit/DC Date/PCP Admission Date/Primary Care Provider: 01/13/20 15:41 Discharge Date: 01/17/20 - Discharge Diagnosis (1) Acute and chronic respiratory failure ([id number]) Is this a current diagnosis for this admission?: Yes (2) COPD exacerbation Is this a current diagnosis for this admission?: Yes (3) Hyponatremia Is this a current diagnosis for this admission?: Yes (4) Protein-calorie malnutrition, moderate Is this a current diagnosis for this admission?: Yes (5) Tobacco use disorder, continuous Is this a current diagnosis for this admission?: Yes - Assessment Summary: Patient was admitted for shortness of breath. Chest x-ray did not reveal any evidence of pneumonia. Had mild elevated white count at time of admission. Had notably been taking prednisone at a small dose outpatient with Levaquin for treatment of bronchitis. Upon admission there was mildly elevated BNP but I do not believe that patient was having acute exacerbation of congestive heart failure. Patient was noted to have significant wheezing. Patient was started on treatment for COPD exacerbation with frequent nebulizer treatments. Patient was placed on IV Solu-Medrol for several days Patient's blood gas also revealed significant hypercapnic respiratory failure with metabolic compensation with PCO2 going as high as in the 90s. I believe patient did have some acute on chronic respiratory failure secondary to her COPD. Patient was placed on BiPAP nocturnally and PCO2 improved to the 70s with pH of 7.38 given adequate metabolic compensation. Patient's respiratory status has improved significantly by the time of discharge patient states that she has been ambulating on her usual 3 L nasal cannula which he uses at home and has had no difficulty. As a matter fact she was able to ambulate on room air today without any difficulty breathing. Patient has been informed that she would likely benefit from nocturnal BiPAP or trilogy machine in place of the nocturnal CPAP which he uses at home. 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 Fuad Jean on January 29 to be qualified for nocturnal BiPAP or trilogy. I have also started patient on budesonide inhaler to use in combination with her Spiriva for her COPD. Patient has been discharged in stable conditions. - Additional Information Resuscitation Status: Full Code Discharge Diet: As Tolerated Discharge Activity: Slowly Increase Activity Referrals: [facility] [Other] - 01/29/20 9:30 am FUAD JEAN MD [NO LOCAL MD] - 01/30/20 Prescriptions: Prednisone [Deltasone 20 mg Tablet] 20 mg PO BID 3 Days Budesonide [Pulmicort 90 mcg Flexhaler] 1 inh IH DAILY #2 inhaler Tiotropium [place] [Spiriva Respimat] 1 puff IH BID #2 inhaler Albuterol Sulfate [Ventolin 0.083% Neb 2.5 mg/3 mL Ampul] 1 vial NEB Q6 #90 vial Home Medications: Albuterol Sulfate [Proair HFA Inhalation Aerosol 8.5 gm MDI] 2 puff IH Q4HP PRN 08/22/19 Aripiprazole [Abilify 5 mg Tablet] 5 mg PO DAILY 08/22/19 Bupropion HCl [Wellbutrin Xl 300mg 24hr Tablet] 300 mg PO DAILY 08/22/19 Citalopram Hydrobromide [Celexa 40 mg Tablet] 40 mg PO DAILY 08/22/19 Risperidone [Risperdal] 3 mg PO Q12 08/22/19 Azithromycin [Zithromax 250 mg Tablet] 250 mg PO MOWEFR@1000 01/13/20 Benztropine Mesylate [Cogentin 1 mg Tablet] 1 tab PO BID 01/13/20 Furosemide [Lasix 20 mg Tablet] 10 mg PO BID 01/13/20 Albuterol Sulfate [Ventolin 0.083% Neb 2.5 mg/3 mL Ampul] 1 vial NEB Q6 #90 vial 01/17/20 Budesonide [Pulmicort 90 mcg Flexhaler] 1 inh IH DAILY #2 inhaler 01/17/20 Prednisone [Deltasone 20 mg Tablet] 20 mg PO BID 3 Days 01/17/20 Tiotropium [place] [Spiriva Respimat] 1 puff IH BID #2 inhaler 01/17/20 History of Present Illiness History of Present Illness: JULIO BACA is a 54 year old female who presented the emergency room via EMS with acute dyspnea. Patient admits that she developed sudden onset of severe dyspnea short time before calling EMS. She admits that her dyspnea is worsened with exertion, accompanied by severe air hunger and associated with orthopnea. She denies other associated or accompanying signs and symptoms. She admits numerous prior similar episodes related to her CHF and COPD. She has not identified any additional aggravating or ameliorating factors for her dyspnea. EMS found the patient to be severely dyspneic and severely hypertensive and that she was treated with BiPAP and IV nitroglycerin in the field. Her symptoms resolved rapidly over the course of her transportation and she was significantly improved by the time she arrived at the emergency room. In the ER she was weaned off BiPAP back to 3-1/2 L/min of oxygen via nasal cannula. The patient's chest x-ray showed no acute process and her laboratory evaluation was unremarkable. She was subsequently placed in observation for further evaluation and treatment. Physical Exam Vital Signs: Temp Pulse Resp BP Pulse Ox 98 F 92 20 109/48 L 97 01/17/20 12:12 01/17/20 12:12 01/17/20 12:12 01/17/20 12:12 01/17/20 12:12 Intake & Output 01/16/20 01/17/20 01/18/20 06:59 06:59 06:59 Intake Total 2355 1430 Output Total 2100 1702 Balance 255 -272 Weight 56.6 kg 57.6 kg General appearance: PRESENT: no acute distress, cooperative Neck exam: ABSENT: JVD Respiratory exam: PRESENT: symmetrical, unlabored, wheezes - Mild and significantly improved from yesterday. ABSENT: accessory muscle use, crackles, retraction, tachypnea GI/Abdominal exam: PRESENT: soft Extremities exam: ABSENT: pedal edema Results Laboratory Results: WBC 8.5 10^3/uL (4.0-10.5) 01/15/20 05:41 RBC 4.68 10^6/uL (3.72-5.28) 01/15/20 05:41 Hgb 12.8 g/dL (12.0-15.5) 01/15/20 05:41 Hct 39.0 % (36.0-47.0) 01/15/20 05:41 MCV 83 fl (80-97) 01/15/20 05:41 MCH 27.3 pg (27.0-33.4) 01/15/20 05:41 MCHC 32.8 g/dL (32.0-36.0) 01/15/20 05:41 RDW 15.7 % (11.5-14.0) H 01/15/20 05:41 Plt Count 292 10^3/uL (150-450) 01/15/20 05:41 Lymph % (Auto) 6.0 % (13-45) L 01/15/20 05:41 [place] % (Auto) 6.6 % (3-13) 01/15/20 05:41 Eos % (Auto) 0.0 % (0-6) 01/15/20 05:41 Baso % (Auto) 0.3 % (0-2) 01/15/20 05:41 Absolute Neuts (auto) 7.4 10^3/uL (1.7-8.2) 01/15/20 05:41 Absolute Lymphs (auto) 0.5 10^3/uL (0.5-4.7) 01/15/20 05:41 Absolute Monos (auto) 0.6 10^3/uL (0.1-1.4) 01/15/20 05:41 Absolute Eos (auto) 0.0 10^3/uL (0.0-0.6) 01/15/20 05:41 Absolute Basos (auto) 0.0 10^3/uL (0.0-0.2) 01/15/20 05:41 Seg Neutrophils % 87.1 % (42-78) H 01/15/20 05:41 PT 12.4 SEC (11.4-15.4) 01/12/20 20:30 INR 0.92 01/12/20 20:30 APTT 26.5 SEC (23.5-35.8) 01/12/20 20:30 Carbonic Acid 2.25 mmol/L (1.05-1.35) H 01/17/20 06:32 HCO3/H2CO3 Ratio 19:1 01/17/20 06:32 ABG pH 7.38 (7.35-7.45) 01/17/20 06:32 ABG pCO2 74.6 mmHg (35-45) H* 01/17/20 06:32 ABG pO2 40.6 mmHg (80-100) L* 01/17/20 06:32 ABG HCO3 42.9 mmol/L (20-24) H 01/17/20 06:32 ABG Total CO2 45.2 mmol/L (21-25) H 01/17/20 06:32 ABG O2 Saturation 72.1 % (94-98) L 01/17/20 06:32 ABG Base Excess 14.2 mmol/L 01/17/20 06:32 VBG pH 7.32 (7.30-7.42) 01/16/20 06:11 VBG pCO2 93.9 mmHg (35-63) H* 01/16/20 06:11 VBG HCO3 47.2 mmol/L (20-32) H 01/16/20 06:11 VBG Base Excess 16.4 mmol/L 01/16/20 06:11 FiO2 ROOM AIR 01/17/20 06:32 Sodium 131.3 mmol/L (137-145) L 01/16/20 06:11 Potassium 4.2 mmol/L (3.6-5.0) 01/16/20 06:11 Chloride 87 mmol/L (98-107) L 01/16/20 06:11 Carbon Dioxide 41 mmol/L (22-30) H* 01/16/20 06:11 Anion Gap 3 (5-19) L 01/16/20 06:11 BUN 29 mg/dL (7-20) H 01/16/20 06:11 Creatinine 0.99 mg/dL (0.52-1.25) 01/16/20 06:11 Est GFR ( Amer) > 60 (>60) 01/16/20 06:11 Est GFR (MDRD) Non-Af 58 (>60) L 01/16/20 06:11 Glucose 155 mg/dL (75-110) H 01/16/20 06:11 Serum Osmolality 286 mOsm/kg (275-301) 01/15/20 15:36 Lactic Acid 0.6 mmol/L (0.7-2.1) L 01/12/20 20:30 Calcium 8.8 mg/dL (8.4-10.2) 01/16/20 06:11 Magnesium 1.8 mg/dL (1.6-2.3) 01/12/20 20:30 Total Bilirubin 0.3 mg/dL (0.2-1.3) 01/12/20 20:30 Direct Bilirubin 0.1 mg/dL (0.0-0.4) 01/12/20 20:30 Neonat Total Bilirubin Not Reportable 01/12/20 20:30 Neonat Direct Bilirubin Not Reportable 01/12/20 20:30 Neonat Indirect Bili Not Reportable 01/12/20 20:30 AST 34 U/L (14-36) 01/12/20 20:30 ALT 22 U/L (<35) 01/12/20 20:30 Alkaline Phosphatase 76 U/L (38-126) 01/12/20 20:30 Creatine Kinase 58 U/L (30-135) 01/13/20 05:16 CK-MB (CK-2) 8.72 ng/mL (<4.55) H 01/13/20 12:32 Troponin I 0.019 ng/mL 01/13/20 12:32 NT-Pro-B Natriuret Pep 401 pg/mL (<125) H 01/15/20 05:41 Total Protein 5.7 g/dL (6.3-8.2) L 01/12/20 20:30 Albumin 3.5 g/dL (3.5-5.0) 01/12/20 20:30 TSH 1.08 uIU/mL (0.47-4.68) 01/15/20 15:36 Urine Color COLORLESS 01/12/20 21:00 Urine Appearance CLEAR 01/12/20 21:00 Urine pH 6.0 (5.0-9.0) 01/12/20 21:00 Ur Specific [place] 1.002 01/12/20 21:00 Urine Protein NEGATIVE mg/dL (NEGATIVE) 01/12/20 21:00 Urine Glucose (UA) NEGATIVE mg/dL (NEGATIVE) 01/12/20 21:00 Urine Ketones NEGATIVE mg/dL (NEGATIVE) 01/12/20 21:00 Urine Blood NEGATIVE (NEGATIVE) 01/12/20 21:00 Urine Nitrite (Reflex) NEGATIVE (NEGATIVE) 01/12/20 21:00 Urine Bilirubin NEGATIVE (NEGATIVE) 01/12/20 21:00 Urine Urobilinogen NEGATIVE mg/dL (<2.0) 01/12/20 21:00 Leukocyte Esterase Rfl NEGATIVE (NEGATIVE) 01/12/20 21:00 Urine RBC (Auto) 0 /HPF 01/12/20 21:00 Urine WBC (Reflex) < 1 /HPF 01/12/20 21:00 Urine Osmolality 215 mOsm/kg (300-900) L 01/15/20 20:30 Urine Ascorbic Acid NEGATIVE (NEGATIVE) 01/12/20 21:00 Influenza A (Rapid) NEGATIVE (NEGATIVE) 01/12/20 23:55 Influenza B (Rapid) NEGATIVE (NEGATIVE) 01/12/20 23:55 01/12/20 01/12/20 01/13/20 20:30 20:33 00:30 CK-MB (CK-2) 10.40 H Troponin I 0.026 0.028 NT-Pro-B Natriuret Pep 605 H 01/13/20 01/13/20 01/15/20 05:16 12:32 05:41 CK-MB (CK-2) 8.41 H 8.72 H Troponin I 0.021 0.019 NT-Pro-B Natriuret Pep 401 H Impressions: Chest X-Ray 01/12/20 20:48 IMPRESSION: COPD No acute abnormality is identified. Plan Time Spent: Less than 30 Minutes Stroke Is this a Stroke Patient?: No Acute Heart Failure - Is this a Heart Failure Patient?: No
== END 2020-01-17 13:55 | disposition home or self-care (01) | DRG 190 ==
LOC: ER 20:24 → INTOOBSV 23:42 → EH 23:42 → 4S 01-13 01:31 → OBSVTOIN 01-13 15:41
PROVIDERS: ADMIT Emergency Medicine; ATTEND Emergency Medicine
PROC: 5A09457 Assistance with Respiratory Ventilation, 24-96 Consecutive Hours, Continuous Positive Airway Pressure (ICD-10-PCS; principal; 2020-01-13)
DX: J44.1 Chronic obstructive pulmonary disease with (acute) exacerbation (principal); J96.22 Acute and chronic respiratory failure with hypercapnia; J96.21 Acute and chronic respiratory failure with hypoxia; E87.1 Hypo-osmolality and hyponatremia; E44.0 Moderate protein-calorie malnutrition; I50.9 Heart failure, unspecified; E11.9 Type 2 diabetes mellitus without complications; F31.9 Bipolar disorder, unspecified; F17.210 Nicotine dependence, cigarettes, uncomplicated; Z99.81 Dependence on supplemental oxygen; Z79.899 Other long term (current) drug therapy
CPT/HCPCS: 36415; 36600; 71045; 80048; 80053; 81001; 82550; 82553; 82803; 83605; 83735; 83880; 83930; 83935; 84443; 84484; 85025; 85610; 85730; 87040; 87804; 93005; 93010; 94660; 96374; 96375; 99291; G0378; J0360; J1644; J1940; J2270; J2920; J2930; J3490; J7614; J7620

== ENCOUNTER 2020-05-24 23:23 | Emergency (ER) | payer OTHER, MEDICARE ==
--- NOTE | 2020-05-24 23:44 | ER Document Report ---
ED General - General Chief Complaint: Respiratory Distress Stated Complaint: DIFFICULTY BREATHING Time Seen by Provider: 05/24/20 23:42 Mode of Arrival: Ambulatory Information source: Patient, Emergency Med Personnel Notes: 55-year-old female arrives by EMS after she had a asthmatic attack. Patient reports she was seen by EMS twice tonight and was given breathing treatments both time. The second visit EMS decided to take her here to the ER after giving her 2 g of magnesium IV given her Solu-Medrol IV and 2 A/A treatments. Patient was much improved by time of arrival. Patient reports she used to smoke 3 packs a day since she was 14 years old but she now only smokes one half a pack a day. She denies any current alcohol use and says she quit drinking several years ago. TRAVEL OUTSIDE OF THE [place] IN LAST 30 DAYS: No - HPI Onset: Just prior to arrival Onset/Duration: Sudden, Persistent, Better Quality of pain: No pain Severity: Mild Pain Level: 1 Associated symptoms: Nonproductive cough, Weakness Exacerbated by: Coughing, Deep breathing Relieved by: Denies Similar symptoms previously: Yes Recently seen / treated by doctor: No - Related Data Allergies/Adverse Reactions: No Known Allergies Allergy (Verified 02/18/14 03:01) Past Medical History - General Information source: Patient - Social History Smoking Status: Current Every Day Smoker Cigarette use (# per day): Yes Chew tobacco use (# tins/day): No Smoking Education Provided: Yes Frequency of alcohol use: None Drug Abuse: None Lives with: Alone Family History: Reviewed & Not Pertinent, COPD, Hypertension. denies: CAD, CVA, DM, Malignancy Patient has suicidal ideation: No Patient has homicidal ideation: No - Past Medical History Cardiac Medical History: Reports: Hx Congestive Heart Failure, Hx Hypertension Denies: Hx Coronary Artery Disease, Hx Heart Attack Pulmonary Medical History: Reports: Hx Asthma, Hx Bronchitis, Hx COPD, Hx Pneumonia, Hx Respiratory Failure - Chronic respiratory failure with hypoxia Neurological Medical History: Reports: Hx Seizures - Single seizure in the remote past. Denies: Hx Cerebrovascular Accident Endocrine Medical History: Denies: Hx Diabetes Mellitus Type 1, Hx Diabetes Mellitus Type 2, Hx Hyperthyroidism, Hx Hypothyroidism Renal/ Medical History: Reports: Hx Kidney Stones GI Medical History: Denies: Hx Cirrhosis, Hx Crohn's Disease, Hx Gastroesophageal Reflux Disease, Hx Hepatitis, Hx Ulcerative Colitis Musculoskeletal Medical History: Reports Hx Arthritis, Denies Hx Gout Skin Medical History: Denies Hx Eczema, Denies Hx Psoriasis Psychiatric Medical History: Reports: Hx Bipolar Disorder, Hx Depression Infectious Medical History: Denies: Hx Hepatitis Past Surgical History: Reports: Hx Section, Hx Orthopedic Surgery - right knee. Denies: Hx Hysterectomy, Hx Pacemaker - Immunizations Hx Diphtheria, Pertussis, Tetanus Vaccination: No Hx Pneumococcal Vaccination: 01/12/13 Review of Systems - Review of Systems Constitutional: No symptoms reported, See HPI, Weakness EENT: No symptoms reported Cardiovascular: No symptoms reported, Heart racing, Lightheaded Respiratory: See HPI, Short of breath, Wheezing Gastrointestinal: No symptoms reported Genitourinary: No symptoms reported Female Genitourinary: No symptoms reported Musculoskeletal: No symptoms reported Skin: No symptoms reported Hematologic/Lymphatic: No symptoms reported Neurological/Psychological: No symptoms reported Physical Exam - Vital signs Vitals: Temp Pulse Resp BP Pulse Ox 98.6 F 110 H 26 H 152/79 H 98 05/24/20 23:32 05/24/20 23:32 05/24/20 23:32 05/24/20 23:32 05/24/20 23:32 Interpretation: Hypertensive, Tachycardic, Tachypneic - General General appearance: Alert - HEENT Head: Normocephalic, Atraumatic Eyes: Normal Pupils: PERRL Sinus: Normal Mouth/Lips: Normal Mucous membranes: Normal Pharynx: Normal - Normal normal Neck: Normal - Respiratory Respiratory status: Tachypnea Chest status: Nontender Breath sounds: Wheezing Chest palpation: Normal - Cardiovascular Rhythm: Regular Murmur: No - Abdominal Inspection: Normal Distension: No distension Bowel sounds: Normal Tenderness: Nontender - Rectal Hemorrhoids: Other - deferred - Genitourinary Bimanuel exam: Other - deferred - Back Back: Normal - Extremities General upper extremity: Normal inspection General lower extremity: Normal inspection - Neurological Neuro grossly intact: Yes Cognition: Normal Orientation: AAOx4 Jackeline Coma Scale Eye Opening: Spontaneous Jackeline Coma Scale Verbal: Oriented Pala Coma Scale Motor: Obeys Commands Jackeline Coma Scale Total: 15 Speech: Normal Motor strength normal: LUE, RUE, LLE, RLE Sensory: Normal - Psychological Associated symptoms: Normal affect - Skin Skin Temperature: Warm Skin Moisture: Dry Course - Vital Signs Vital signs: Temp Pulse Resp BP Pulse Ox 98.6 F 110 H 26 H 152/79 H 98 05/24/20 23:32 05/24/20 23:32 05/24/20 23:32 05/24/20 23:32 05/24/20 23:32 - Laboratory Result Diagrams: 05/24/20 23:38 05/24/20 23:38 Laboratory results interpreted by me: 05/24/20 05/24/20 23:38 23:38 Hgb 10.9 L Hct 34.5 L MCHC 31.5 L RDW 14.9 H Lymph % (Auto) 12.0 L Seg Neutrophils % 80.6 H Sodium 129.6 L Chloride 85 L Carbon Dioxide 45 H* Anion Gap 0 L Total Protein 5.9 L - Diagnostic Test Radiology reviewed: Reports reviewed Critical Care Note - Critical Care Note Total time excluding time spent on procedures (mins): 90 Comments: Patient much improved and ready to go home driven by her . The time now is 0 125 Discharge - Discharge Clinical Impression: Tobacco use disorder, continuous, Hyponatremia, Bronchitis Chronic obstructive pulmonary disease Qualifiers: COPD type: unspecified COPD Qualified Code(s): J44.9 - Chronic obstructive pulmonary disease, unspecified Condition: Good Disposition: HOME, SELF-CARE Additional Instructions: Follow-up with personal doctor this week; return to ER as needed if symptoms worsen ;take medicines as directed encourage fluids and try to stay out of the heat with your COPD Prescriptions: Prednisone [Deltasone 20 mg Tablet] 1 tab PO DAILY 4 Days #4 tablet Azithromycin [Zithromax 250 mg Tablet] 250 mg PO ASDIR PRN #6 tablet PRN Reason:
[2020-05-24 23:54] LABS: ABSOLUTE LYMPHOCYTES (AUTO) 0.7 10^3/uL (0.5-4.7); ABSOLUTE MONOCYTES (AUTO) 0.4 10^3/uL (0.1-1.4); ABSOLUTE NEUT (AUTO) 4.6 10^3/uL (1.7-8.2); BASOPHILS % (AUTO) 0.5 % (0-2); EOSINOPHILS % (AUTO) 0.5 % (0-6); HEMATOCRIT 34.5 % (36.0-47.0); HEMOGLOBIN 10.9 g/dL (12.0-15.5); MEAN CORPUSCULAR HGB CONC 31.5 g/dL (32.0-36.0); MEAN CORPUSCULAR VOLUME 86 fl (80-97); MONOCYTES % (AUTO) 6.4 % (3-13); PLATELET COUNT 269 10^3/uL (150-450); RED BLOOD COUNT 4.03 10^6/uL (3.72-5.28); RED CELL DISTRIBUTION WIDTH 14.9 % (11.5-14.0); SEGMENTED NEUTROPHILS % (AUTO) 80.6 % (42-78); TOTAL CELLS COUNTED % (AUTO) 100 %; WHITE BLOOD COUNT 5.7 10^3/uL (4.0-10.5)
[2020-05-25 00:08] LABS: ALBUMIN 3.6 g/dL (3.5-5.0); ALKALINE PHOSPHATASE 94 U/L (38-126); ASPARTATE AMINO TRANSFERASE 21 U/L (14-36); BILIRUBIN,TOTAL 0.5 mg/dL (0.2-1.3); BLOOD UREA NITROGEN 9 mg/dL (7-20); CALCIUM 9.3 mg/dL (8.4-10.2); CHLORIDE 85 mmol/L (98-107); GLUCOSE 102 mg/dL (75-110); POTASSIUM 3.8 mmol/L (3.6-5.0); TOTAL PROTEIN 5.9 g/dL (6.3-8.2)
[2020-05-25] MEDS ORDERED: CEFTRIAXONE INJ 1000 MG VIAL IV ONE (00:19)
[2020-05-25 00:37] LABS: ANION GAP 0 (5-19)
[2020-05-25 00:38] LABS: CARBON DIOXIDE 45 mmol/L (22-30)
[2020-05-25 02:17] VITALS: BP 168/90
--- NOTE | 2020-05-25 07:56 | RADIOLOGY REPORT (SQ) ---
EXAM: XR Chest, 1 View EXAM DATE/TIME: 05/24/2020 23:38 CLINICAL HISTORY: The patient is 55 years old and is Female; shortness of breath TECHNIQUE: Frontal view of the chest. COMPARISON: Chest radiograph from 01/12/2020 FINDINGS: LUNGS: Small focus of increased density in the lateral aspect of the right midlung may represent scarring. There is also minimal faint increased density in the right lower lung suggesting atelectasis or mild infiltrate. The left lung is clear. PLEURAL SPACE: Unremarkable. No pneumothorax. HEART: No significant enlargement of the cardiac silhouette. MEDIASTINUM: Unremarkable. BONES/JOINTS: There is chronic separation of the acromioclavicular joint on the right. Chronic changes of the left humeral head which are likely related to remote fracture. No obvious acute fracture. IMPRESSION: Faint increased density in the right lower lung suggesting atelectasis or mild infiltrate.
--- NOTE | 2020-05-25 12:04 | EKG REPORT ---
SEVERITY:- ABNORMAL ECG - SINUS RHYTHM INCOMPLETE RIGHT BUNDLE BRANCH BLOCK : Confirmed by: Sarika Tafoya MD 25-May-2020 12:03:10
== END 2020-05-25 02:23 | disposition home or self-care (01) ==
LOC: ER 23:23
DX: J44.9 Chronic obstructive pulmonary disease, unspecified (principal); E87.1 Hypo-osmolality and hyponatremia; R05 Cough; R53.1 Weakness; I10 Essential (primary) hypertension; F17.210 Nicotine dependence, cigarettes, uncomplicated; Z87.01 Personal history of pneumonia (recurrent)
CPT/HCPCS: 93005; 99291; 99292; 96365; 36415; 87040; 85025; 87077; 80053; 87186; 87150 ×26; 71045; 93010; J0696

== ENCOUNTER 2020-05-28 12:34 | Emergency (ER) | payer OTHER, MEDICARE ==
--- NOTE | 2020-05-28 12:51 | ER Document Report ---
ED Medical Screen (RME) - General Chief Complaint: Abnormal Lab Results Stated Complaint: ABNORMAL LABS Time Seen by Provider: 05/28/20 12:47 Mode of Arrival: Ambulatory Information source: Patient Notes: 55-year-old female presented to ED for positive blood cultures x2 with methicillin-resistant staph aureus. She states she was sent home on a azithromycin. She came in for trouble breathing. She does have COPD. She is on 3 L O2 at this time. She is having a very hard time breathing to the mass as she takes it off. Patient is alert and oriented and able to answer questions appropriately. We will repeat labs and have seen in the main ER. I have greeted and performed a rapid initial assessment of this patient. A comprehensive ED assessment and evaluation of the patient, analysis of test results and completion of medical decision making process will be conducted by an additional ED providers. TRAVEL OUTSIDE OF THE [place] IN LAST 30 DAYS: No - Related Data Allergies/Adverse Reactions: No Known Allergies Allergy (Verified 05/28/20 12:47) Past Medical History - Past Medical History Cardiac Medical History: Reports: Hx Congestive Heart Failure, Hx Hypertension Denies: Hx Coronary Artery Disease, Hx Heart Attack Pulmonary Medical History: Reports: Hx Asthma, Hx Bronchitis, Hx COPD, Hx Pneumonia, Hx Respiratory Failure - Chronic respiratory failure with hypoxia Neurological Medical History: Reports: Hx Seizures - Single seizure in the remote past. Denies: Hx Cerebrovascular Accident Endocrine Medical History: Denies: Hx Diabetes Mellitus Type 1, Hx Diabetes Mellitus Type 2, Hx Hyperthyroidism, Hx Hypothyroidism Renal/ Medical History: Reports: Hx Kidney Stones GI Medical History: Denies: Hx Cirrhosis, Hx Crohn's Disease, Hx Gastroesophageal Reflux Disease, Hx Hepatitis, Hx Ulcerative Colitis Musculoskeltal Medical History: Reports Hx Arthritis, Denies Hx Gout Skin Medical History: Denies Hx Eczema, Denies Hx Psoriasis Psychiatric Medical History: Reports: Hx Bipolar Disorder, Hx Depression Infectious Medical History: Denies: Hx Hepatitis Past Surgical History: Reports: Hx Section, Hx Orthopedic Surgery - right knee. Denies: Hx Hysterectomy, Hx Pacemaker - Immunizations Hx Diphtheria, Pertussis, Tetanus Vaccination: No Physical Exam - Vital signs Vitals: Temp Pulse Resp BP Pulse Ox 97.7 F 64 20 131/64 H 97 05/28/20 12:37 05/28/20 12:37 05/28/20 12:37 05/28/20 12:37 05/28/20 12:37 Course - Vital Signs Vital signs: Temp Pulse Resp BP Pulse Ox 97.7 F 64 20 131/64 H 97 05/28/20 12:37 05/28/20 12:37 05/28/20 12:37 05/28/20 12:37 05/28/20 12:37
[2020-05-28] MEDS ORDERED: NORMAL SALINE 1000 ML 1,000 ML IV ONE (12:52)
[2020-05-28 13:37] LABS: ABSOLUTE LYMPHOCYTES (AUTO) 0.4 10^3/uL (0.5-4.7); ABSOLUTE MONOCYTES (AUTO) 0.2 10^3/uL (0.1-1.4); ABSOLUTE NEUT (AUTO) 4.9 10^3/uL (1.7-8.2); BASOPHILS % (AUTO) 0.1 % (0-2); HEMATOCRIT 38.9 % (36.0-47.0); HEMOGLOBIN 12.2 g/dL (12.0-15.5); LYMPHOCYTES % (AUTO) 6.9 % (13-45); MEAN CORPUSCULAR HEMOGLOBIN 26.8 pg (27.0-33.4); MEAN CORPUSCULAR HGB CONC 31.4 g/dL (32.0-36.0); MEAN CORPUSCULAR VOLUME 85 fl (80-97); MONOCYTES % (AUTO) 2.8 % (3-13); PLATELET COUNT 272 10^3/uL (150-450); RED BLOOD COUNT 4.56 10^6/uL (3.72-5.28); RED CELL DISTRIBUTION WIDTH 14.8 % (11.5-14.0); SEGMENTED NEUTROPHILS % (AUTO) 90.2 % (42-78); TOTAL CELLS COUNTED % (AUTO) 100 %; WHITE BLOOD COUNT 5.4 10^3/uL (4.0-10.5)
[2020-05-28 13:57] LABS: ALBUMIN 3.9 g/dL (3.5-5.0); ALKALINE PHOSPHATASE 83 U/L (38-126); ASPARTATE AMINO TRANSFERASE 22 U/L (14-36); BILIRUBIN,TOTAL 0.4 mg/dL (0.2-1.3); BLOOD UREA NITROGEN 9 mg/dL (7-20); C-REACTIVE PROTEIN < 5.0 mg/L (<10.0); CALCIUM 9.3 mg/dL (8.4-10.2); CHLORIDE 83 mmol/L (98-107); GLUCOSE 169 mg/dL (75-110); POTASSIUM 4.5 mmol/L (3.6-5.0); TOTAL PROTEIN 6.5 g/dL (6.3-8.2)
[2020-05-28 14:04] LABS: ANION GAP 3 (5-19); CARBON DIOXIDE 45 mmol/L (22-30)
--- NOTE | 2020-05-28 14:31 | RADIOLOGY REPORT (SQ) ---
EXAM DESCRIPTION: CHEST 2 VIEWS IMAGES COMPLETED DATE/TIME: 05/28/2020 12:17 pm REASON FOR STUDY: recent visit pneumonia MRSA COMPARISON: 05/25/2020. EXAM PARAMETERS: NUMBER OF VIEWS: two views TECHNIQUE: Digital Frontal and Lateral radiographic views of the chest acquired. RADIATION DOSE: NA LIMITATIONS: none FINDINGS: LUNGS AND PLEURA: Lungs are hyperinflated. No opacities, masses or pneumothorax. No pleu ral effusion. MEDIASTINUM AND HILAR STRUCTURES: No masses or contour abnormalities. HEART AND VASCULAR STRUCTURES: Heart normal size. No evidence for failure. BONES: No acute findings. HARDWARE: None in the chest. OTHER: No other significant finding. IMPRESSION: Hyperinflated lungs which can be seen with obstructive lung disease. No acute cardiopul monary disease. TECHNICAL DOCUMENTATION: JOB ID: [id number] [employer]- All Rights Reserved Reading location - IP/workstation name: [email or web address]
[2020-05-28] MEDS ORDERED: IPRATROPIUM/ALBUTEROL 0.5-2.5 MG/3 ML AMPUL NEB ONE (15:18)
--- NOTE | 2020-05-28 15:27 | ER Document Report ---
ED General - General Chief Complaint: Abnormal Lab Results Stated Complaint: ABNORMAL LABS Time Seen by Provider: 05/28/20 12:47 Primary Care Provider: AUBREY CRISTOBAL FNP-C [Primary Care Provider] - Follow up as needed Mode of Arrival: Ambulatory TRAVEL OUTSIDE OF THE [place] IN LAST 30 DAYS: No - HPI Notes: Patient is a 55-year-old female with a history of COPD who presents to the emergency department for evaluation. She was notified of positive blood cultures. The patient was seen here on May 25. She was here because she was coughing and short of breath. She was sent home with Zithromax and prednisone. She states she continues to cough, she states her shortness of breath is improved somewhat. She states she does need a refill of her albuterol. She has had absolutely no fevers or chills. She states she did have one episode of hemoptysis, a few episodes of diarrhea yesterday, but this seems to have resolved. She denies any pain. She does continue to smoke. - Related Data Allergies/Adverse Reactions: No Known Allergies Allergy (Verified 05/28/20 12:47) Home Medications: Lasix, citalopram, buproprion, risperdone Past Medical History - General Information source: Patient - Social History Smoking Status: Current Every Day Smoker Frequency of alcohol use: None Drug Abuse: Marijuana Family History: Reviewed & Not Pertinent, COPD, Hypertension. denies: CAD, CVA, DM, Malignancy - Past Medical History Cardiac Medical History: Reports: Hx Congestive Heart Failure, Hx Hypertension Denies: Hx Coronary Artery Disease, Hx Heart Attack Pulmonary Medical History: Reports: Hx Asthma, Hx Bronchitis, Hx COPD, Hx Pneumo james, Hx Respiratory Failure - Chronic respiratory failure with hypoxia Neurological Medical History: Reports: Hx Seizures - Single seizure in the remote past. Denies: Hx Cerebrovascular Accident Endocrine Medical History: Denies: Hx Diabetes Mellitus Type 1, Hx Diabetes Mellitus Type 2, Hx Hyperthyroidism, Hx Hypothyroidism Renal/ Medical History: Reports: Hx Kidney Stones GI Medical History: Denies: Hx Cirrhosis, Hx Crohn's Disease, Hx Gastroesophageal Reflux Disease, Hx Hepatitis, Hx Ulcerative Colitis Musculoskeletal Medical History: Reports Hx Arthritis, Denies Hx Gout Skin Medical History: Denies Hx Eczema, Denies Hx Psoriasis Psychiatric Medical History: Reports: Hx Bipolar Disorder, Hx Depression Infectious Medical History: Denies: Hx Hepatitis Past Surgical History: Reports: Hx Section, Hx Orthopedic Surgery - right knee. Denies: Hx Hysterectomy, Hx Pacemaker - Immunizations Hx Diphtheria, Pertussis, Tetanus Vaccination: No Hx Pneumococcal Vaccination: 01/12/13 Review of Systems - Review of Systems Respiratory: See HPI -: Yes All other systems reviewed and negative Physical Exam - Vital signs Vitals: Temp Pulse Resp BP Pulse Ox 97.7 F 64 20 131/64 H 97 05/28/20 12:37 05/28/20 12:37 05/28/20 12:37 05/28/20 12:37 05/28/20 12:37 - Notes Notes: This is a 55-year-old female who appears much older than her stated age, in no acute distress. Vital signs reviewed, please refer to chart. Head is normocephalic, atraumatic. Pupils equal round, reactive to light. Neck is supple without meningismus. Heart is regular rate and rhythm. Lungs reveal si gnificant expiratory wheezes and prolonged expiratory phase. No increased work of breathing noted. Abdomen is soft, nontender, normoactive bowel sounds throughout. Extremities without cyanosis, clubbing. Posterior calves are nontender. Peripheral pulses are equal. Skin is warm and dry. Patient is awake, alert, neurological exam is nonfocal. Course - Re-evaluation Re-evalutation: 05/28/20 15:26 Patient presents to the emergency department for evaluation. She has a history of COPD, is here for shortness of breath, and had blood cultures ordered. I did review the blood cultures. They show MRSA, MSSA, Streptococcus. I suspect this is all contaminant. The patient has no leukocytosis. She has no fevers. She had no pneumonia. She has no pneumonia today. I will order urinalysis to be sure there is no signs of infection there, otherwise I will have her follow-up with her primary care provider. 05/28/20 16:24 Patient's urine is unremarkable. Again she has multiple organisms growing in her blood. I strongly suspect contaminant in this patient who has no fever, no fever at home, no leukocytosis, and certainly does not look toxic enough to have MRSA bacteremia along with other staph and strep species. I will have her continue her Zithromax and prednisone as recently directed for her COPD exacerbation. Otherwise, I will send her home with a albuterol prescription, she states she needs 1, close follow-up with primary care, and instructions to return to the ED with fevers or any worsening. - Vital Signs Vital signs: Temp Pulse Resp BP Pulse Ox 97.8 F 101 H 18 173/76 H 97 05/28/20 15:28 05/28/20 15:28 05/28/20 15:28 05/28/20 15:28 05/28/20 15:28 - Laboratory Result Diagrams: 05/28/20 13:03 05/28/20 13:03 Laboratory results interpreted by me: 05/28/20 05/28/20 13:03 13:03 MCH 26.8 L MCHC 31.4 L RDW 14.8 H Lymph % (Auto) 6.9 L Wheeler % (Auto) 2.8 L Absolute Lymphs (auto) 0.4 L Seg Neutrophils % 90.2 H Sodium 130.6 L Chloride 83 L Carbon Dioxide 45 H* Anion Gap 3 L Est GFR (MDRD) Non-Af 59 L Glucose 169 H - Diagnostic Test Radiology reviewed: Reports reviewed Radiology results interpreted by me: 05/28/20 16:25 Chest X-Ray 05/28/20 12:51 IMPRESSION: Hyperinflated lungs which can be seen with obstructive lung disease. No acute cardiopulmonary disease. Discharge - Discharge Clinical Impression: COPD exacerbation, Contamination of blood culture Condition: Stable Disposition: HOME, SELF-CARE Instructions: Chronic Obstructive Lung Disease ([facility]) Additional Instructions: Given your lack of fevers, urine unremarkable blood work, I do not believe that the blood cultures you had the other day were truly positive. They are being repeated, you will be contacted if they are positive. Otherwise, continue your home medications as prescribed. Follow-up with primary care this week. If you develop fevers, difficulty breathing, or any other new or concerning symptoms, return immediately to the emergency department for evaluation. Forms: Smoking Cessation Education Referrals: AUBREY CRISTOBAL FNP-C [Primary Care Provider] - Follow up as needed
[2020-05-28 15:29] VITALS: BP 173/76
[2020-05-28 15:56] LABS: APPEARANCE,URINE CLEAR; BILIRUBIN,URINE NEGATIVE (NEGATIVE); COLOR,URINE COLORLESS; GLUCOSE, URINE NEGATIVE (NEGATIVE); KETONES,URINE NEGATIVE (NEGATIVE); LEUKOCYTE ESTERASE,URINE NEGATIVE (NEGATIVE); NITRITE,URINE NEGATIVE (NEGATIVE); PROTEIN,URINE NEGATIVE (NEGATIVE); URINE SPECIFIC GRAVITY 1.001; UROBILINOGEN,URINE NEGATIVE mg/dL (<2.0)
== END 2020-05-28 16:47 | disposition home or self-care (01) ==
LOC: ER 12:34
DX: J44.1 Chronic obstructive pulmonary disease with (acute) exacerbation (principal); R04.2 Hemoptysis; I11.0 Hypertensive heart disease with heart failure; I50.9 Heart failure, unspecified; F17.200 Nicotine dependence, unspecified, uncomplicated; F12.10 Cannabis abuse, uncomplicated; F31.9 Bipolar disorder, unspecified; Z79.899 Other long term (current) drug therapy; Z87.01 Personal history of pneumonia (recurrent)
CPT/HCPCS: 94640; 99285; 36415; 87040; 87086; 85025; 86140; 80053; 81001; 87150 ×26; 71046; J7030; 87077

== ENCOUNTER 2020-08-07 21:54 | Observation (INO) | payer OTHER, MEDICARE ==
[2020-08-07] MEDS ORDERED: IPRATROPIUM/ALBUTEROL 0.5-2.5 MG/3 ML AMPUL NEB ONE ×2 (22:17→22:19)
--- NOTE | 2020-08-07 22:24 | ER Document Report ---
ED Respiratory Problem - General Chief Complaint: Shortness Of Breath Stated Complaint: RESPIRATORY DISTRESS Time Seen by Provider: 08/07/20 22:04 TRAVEL OUTSIDE OF THE [place] IN LAST 30 DAYS: No - HPI Patient complains to provider of: COPD, Cough, Short of breath. No: Chest pain, Hurts to breath Onset: This morning Duration: Worse/persistent Quality of pain: No pain Context: Hx COPD Short of Breath: Severe Cough: Productive Sputum amount: Scant Sputum color: Clear EMS treatments: Bronchodilators Associated symptoms: Cough, Difficulty breathing. denies: Fever Similar symptoms previously: Yes Recently seen / treated by doctor: Yes Notes: Patient is a 55-year-old female who presents with shortness of breath. Patient has a history of COPD. She is a smoker. Patient states that she began to feel shortness of breath and wheezing around 3 AM yesterday. She tried her bron chodilators at home with minimal relief. She states she has had a cough with slight clear sputum. Patient denies any chest pain. No fevers. Patient states that she was recently admitted to [facility] 2 weeks ago with a COPD exacerbation. She was tested for COVID at that time and it was negative. Patient denies any history of blood clots. She has not had any surgery or recent immobilization. - Related Data Allergies/Adverse Reactions: No Known Allergies Allergy (Verified 05/28/20 12:47) Past Medical History - General Information source: Patient - Social History Smoking Status: Current Every Day Smoker Chew tobacco use (# tins/day): No Frequency of alcohol use: Rare Drug Abuse: None Family History: Reviewed & Not Pertinent, COPD, Hypertension. denies: CAD, CVA, DM, Malignancy Patient has homicidal ideation: No - Past Medical History Cardiac Medical History: Reports: Hx Congestive Heart Failure, Hx Hypertension Denies: Hx Coronary Artery Disease, Hx Heart Attack Pulmonary Medical History: Reports: Hx Asthma, Hx Bronchitis, Hx COPD, Hx Pneumonia, Hx Respiratory Failure - Chronic respiratory failure with hypoxia Neurological Medical History: Reports: Hx Seizures - Single seizure in the remote past. Denies: Hx Cerebrovascular Accident Endocrine Medical History: Denies: Hx Diabetes Mellitus Type 1, Hx Diabetes Mellitus Type 2, Hx Hyperthyroidism, Hx Hypothyroidism Renal/ Medical History: Reports: Hx Kidney Stones GI Medical History: Denies: Hx Cirrhosis, Hx Crohn's Disease, Hx Gastroesophageal Reflux Disease, Hx Hepatitis, Hx Ulcerative Colitis Musculoskeletal Medical History: Reports Hx Arthritis, Denies Hx Gout Skin Medical History: Denies Hx Eczema, Denies Hx Psoriasis Psychiatric Medical History: Reports: Hx Bipolar Disorder, Hx Depression Infectious Medical History: Denies: Hx Hepatitis Past Surgical History: Reports: Hx Section, Hx Orthopedic Surgery - right knee. Denies: Hx Hysterectomy, Hx Pacemaker - Immunizations Hx Diphtheria, Pertussis, Tetanus Vaccination: No Hx Pneumococcal Vaccination: 01/12/13 Review of Systems - Review of Systems Notes: CONSTITUTIONAL: No fever. SKIN: No rash. HENT: No congestion, ear pain, or sore throat. EYES: No recent vision problems or eye pain. CARDIOVASCULAR: No chest pain or edema. RESPIRATORY: Positive for cough, shortness of breath, and wheezing GASTROINTESTINAL: No abdominal pain MUSCULOSKELETAL: No joint pain or swelling. LYMPHATIC: No swollen glands. NEUROLOGIC: No seizures. No headache, focal weakness or sensory changes. HEMATOLOGIC: No unusual bruising or bleeding. PSYCHIATRIC: No depression or anxiety. Physical Exam - Vital signs Vitals: Temp 97.8 F 08/07/20 21:54 Interpretation: Normal - Notes Notes: VITAL SIGNS: Mild tachycardia. Tachypneic with increased work of breathing. GENERAL: On Bipap, able to answer questions HEAD: Normal with no signs of head trauma. EYES: Conjunctiva normal, no discharge. NOSE: Normal. NECK: No JVD CHEST: Bilateral wheezing and tight lung sounds. CARDIAC: Regular rate and rhythm. S1 and S2, without murmurs, gallops, or rubs. VASCULAR: No Edema. Peripheral pulses normal and equal in all extremities. ABDOMEN: Normal and soft with no tenderness GENITOURINARY: Normal, No tenderness LYMPATHTIC: No lymphadenopathy noted. MUSCULOSKELETAL: Good range of motion of all major joints. Extremities without clubbing, cyanosis or edema. NEUROLOGICAL: Alert and oriented x 3. No focal sensory or strength deficits. Speech normal. Follows commands appropriately. PSYCHIATRIC: Normal Affect, judgement and mood. SKIN: Normal appearance with no rashes or lesions. Course - Re-evaluation Re-evalutation: 08/07/20 22:30 Patient is doing well on BiPAP. She does become short of breath when it was taken off. Patient received Solu-Medrol, albuterol, Atrovent, magnesium from EMS. We will give her another DuoNeb. Patient is requesting to be placed on 3 L. We will give her a BiPAP break. I informed patient that she has hyponatremia. She states she has had this in the past but is unsure how low it has been. This is the lowest is been in our records. Patient denies any diarrhea or vomiting. I placed her on a slow infusion of normal saline. Patient will need to be admitted for further care and monitoring. She is agreeable to this. 08/08/20 01:49 - Vital Signs Vital signs: Temp Pulse Resp BP Pulse Ox 97.8 F 37 H 186/84 H 96 08/07/20 21:55 08/08/20 08:01 08/08/20 08:01 08/08/20 08:01 - Laboratory Result Diagrams: 08/08/20 04:00 08/08/20 04:00 Laboratory results interpreted by me: 08/07/20 08/07/20 22:03 22:03 Hgb 11.3 L Hct 34.0 L Sodium 121.5 L Chloride 79 L Carbon Dioxide 38 H Total Protein 6.0 L - EKG Interpretation by Me EKG shows normal: Sinus rhythm Rate: Tachycardia When compared to previous EKG there are: Previous EKG unavailable Additional EKG results interpreted by me: 08/07/20 22:31 EKG interpreted by me. Sinus tachycardia at a rate of 102. Incomplete right bundle branch block. QTc 511. No acute ST changes. No previous EKG available for comparison. Critical Care Note - Critical Care Note Total time excluding time spent on procedures (mins): 30 Comments: Upon my evaluation, this patient had a high probability of life-threatening deterioration due to respiratory distress, which required my direct attention and personal management. I personally provided 30 minutes of critical care time. Time includes review of laboratory data, radiology results, discussion with consultants, and monitoring for potential decompensation. Discharge - Discharge Clinical Impression: Respiratory distress, Hyponatremia Dyspnea Qualifiers: Dyspnea type: acute respiratory distress Qualified Code(s): R06.03 - Acute respiratory distress Condition: Stable Disposition: AGAINST MEDICAL ADVICE Admitting Provider: Susana (Hospitalist)
[2020-08-07 22:39] LABS: ABSOLUTE LYMPHOCYTES (AUTO) 1.7 10^3/uL (0.5-4.7); ABSOLUTE MONOCYTES (AUTO) 0.8 10^3/uL (0.1-1.4); ABSOLUTE NEUT (AUTO) 6.9 10^3/uL (1.7-8.2); BASOPHILS % (AUTO) 0.3 % (0-2); EOSINOPHILS % (AUTO) 0.3 % (0-6); HEMOGLOBIN 11.3 g/dL (12.0-15.5); LYMPHOCYTES % (AUTO) 18.4 % (13-45); MEAN CORPUSCULAR HEMOGLOBIN 27.7 pg (27.0-33.4); MEAN CORPUSCULAR HGB CONC 33.4 g/dL (32.0-36.0); MEAN CORPUSCULAR VOLUME 83 fl (80-97); MONOCYTES % (AUTO) 8.2 % (3-13); PLATELET COUNT 285 10^3/uL (150-450); RED CELL DISTRIBUTION WIDTH 13.9 % (11.5-14.0); SEGMENTED NEUTROPHILS % (AUTO) 72.8 % (42-78); TOTAL CELLS COUNTED % (AUTO) 100 %; WHITE BLOOD COUNT 9.5 10^3/uL (4.0-10.5)
[2020-08-07 22:40] LABS: ALBUMIN 3.8 g/dL (3.5-5.0); ALKALINE PHOSPHATASE 101 U/L (38-126); ANION GAP 5 (5-19); ASPARTATE AMINO TRANSFERASE 22 U/L (14-36); BILIRUBIN,DIRECT 0.3 mg/dL (0.0-0.4); BILIRUBIN,TOTAL 0.4 mg/dL (0.2-1.3); BLOOD UREA NITROGEN 16 mg/dL (7-20); CALCIUM 8.7 mg/dL (8.4-10.2); CARBON DIOXIDE 38 mmol/L (22-30); CHLORIDE 79 mmol/L (98-107); GLUCOSE 101 mg/dL (75-110); POTASSIUM 3.9 mmol/L (3.6-5.0)
--- NOTE | 2020-08-07 22:56 | RADIOLOGY REPORT (SQ) ---
EXAM DESCRIPTION: XR CHEST 1 VIEW COMPLETED DATE/TME: 08/07/2020 22:14 CLINICAL HISTORY: 55 years, Female, sob, wheezing COMPARISON: 05/28/2020 chest NUMBER OF VIEWS: 1 TECHNIQUE: Portable chest LIMITATIONS: None. FINDINGS: The heart size is normal. Osteopenia. Underlying emphysema. Minor fibrotic changes in the right upper lobe. IMPRESSION: No acute cardiopulmonary process. Underlying emphysema with fibrotic change as before copyright 2010 [employer]- All Rights Reserved
[2020-08-07 23:19] LABS: APPEARANCE,URINE CLEAR; BILIRUBIN,URINE NEGATIVE (NEGATIVE); COLOR,URINE COLORLESS; GLUCOSE, URINE NEGATIVE (NEGATIVE); KETONES,URINE NEGATIVE (NEGATIVE); LEUKOCYTE ESTERASE,URINE NEGATIVE (NEGATIVE); NITRITE,URINE NEGATIVE (NEGATIVE); PROTEIN,URINE NEGATIVE (NEGATIVE); URINE SPECIFIC GRAVITY 1.002; UROBILINOGEN,URINE NEGATIVE mg/dL (<2.0)
[2020-08-08] MEDS ORDERED: IPRATROPIUM/ALBUTEROL 0.5-2.5 MG/3 ML AMPUL NEB ONE (00:06)
[2020-08-08] MEDS ORDERED: NORMAL SALINE 1000 ML 1,000 ML IV ONE (00:23)
[2020-08-08] MEDS ORDERED: MAGNESIUM HYDROXIDE SUSP 30 ML UDCUP PO PRN (00:56)
[2020-08-08] MEDS ORDERED: MORPHINE SULFATE 10 MG/ML INJ IV PRN ×4 (00:56→01:13)
[2020-08-08] MEDS ORDERED: METOPROLOL TARTRATE PF/INJ 5 MG/5 ML SDV IV PRN (00:56)
[2020-08-08] MEDS ORDERED: ACETAMINOPHEN 325 MG TABLET PO PRN (00:56)
[2020-08-08] MEDS ORDERED: LORAZEPAM INJ 2 MG/1 ML VIAL IV PRN (00:56)
[2020-08-08] MEDS ORDERED: MAG HYDROX/AL HYDROX/SIMETH SUSP 30 ML UDCUP PO PRN (00:56)
[2020-08-08] MEDS ORDERED: MELATONIN 5 MG TABLET PO PRN (00:56)
[2020-08-08] MEDS ORDERED: LEVALBUTEROL HCL NEB 0.63 MG/3 ML AMPUL NEB PRN (00:56)
[2020-08-08] MEDS ORDERED: GUAIFENESIN SYRP 200 MG/10 ML UDC PO PRN (00:56)
[2020-08-08] MEDS ORDERED: NICOTINE 21 MG/24 HR PATCH.TD24 TD PRN (00:56)
[2020-08-08] MEDS: METHYLPREDNISOLONE INJ 40 MG/1 ML SDV IV SCH ×2 (02:06→08:09)
[2020-08-08 03:32] LABS: ARTERIAL BLOOD BASE EXCESS 10.5 mmol/L; ARTERIAL BLOOD HCO3 38.6 mmol/L (20-24); ARTERIAL BLOOD O2 SATURATION 93.7 % (94-98); ARTERIAL BLOOD PH 7.36 (7.35-7.45); ARTERIAL BLOOD PO2 73.7 mmHg (80-100); ARTERIAL BLOOD TOTAL CO2 40.7 mmol/L (21-25)
[2020-08-08 03:34] LABS: ARTERIAL BLOOD FIO2 32%
[2020-08-08 03:35] LABS: ARTERIAL BLOOD PCO2 69.7 mmHg (35-45)
[2020-08-08 04:30] LABS: HEMATOCRIT 34.1 % (36.0-47.0); HEMOGLOBIN 11.4 g/dL (12.0-15.5); MEAN CORPUSCULAR HEMOGLOBIN 27.7 pg (27.0-33.4); MEAN CORPUSCULAR HGB CONC 33.6 g/dL (32.0-36.0); MEAN CORPUSCULAR VOLUME 83 fl (80-97); PLATELET COUNT 261 10^3/uL (150-450); RED BLOOD COUNT 4.12 10^6/uL (3.72-5.28); WHITE BLOOD COUNT 6.5 10^3/uL (4.0-10.5)
[2020-08-08 04:38] LABS: ANION GAP 8 (5-19); BLOOD UREA NITROGEN 15 mg/dL (7-20); CALCIUM 9.2 mg/dL (8.4-10.2); CARBON DIOXIDE 33 mmol/L (22-30); CHLORIDE 87 mmol/L (98-107); GLUCOSE 126 mg/dL (75-110); POTASSIUM 4.5 mmol/L (3.6-5.0)
[2020-08-08 04:50] LABS: CREATINE KINASE MB 5.21 ng/mL (<4.55)
[2020-08-08 04:51] LABS: TROPONIN I < 0.012 ng/mL
[2020-08-08] MEDS ORDERED: HEPARIN SOD (PORCINE) 5,000 UNIT/ML 1 ML VIAL SUBCUT SCH (06:00)
--- NOTE | 2020-08-08 06:33 | PDOC H&P ---
History of Present Illness Admission Date/PCP: 08/08/2020 01:11 DASHA JAMES Patient complains of: Dyspnea History of Present Illness: JULIO BACA is a 55 year old female who presented emergency room with a one day history of dyspnea. She admits developing dyspnea early on the morning of 08/07/2020. Her dyspnea is worsened with exertion or activity. Her dyspnea persisted and gradually worsened over the course of the day becoming severe in the evening and resulting in her calling EMS to bring her to the hospital. Her dyspnea was accompanied by wheezing and associated with an occasional minimally productive cough (clear sputum). She denies other associated or accompanying signs and symptoms. She admits numerous prior similar episodes the most recent being 2 weeks ago when she was hospitalized at [facility] for an exacerbation of her COPD. He tried using her inhalation therapy at home with little or no relief. She has not identified any additional aggravating or ameliorating factors for her dyspnea. In the emergency room she was found to have a normal CBC and a chest x-ray which revealed no acute processes. She required the use of intermittent BiPAP in order to maintain an adequate oxygen saturation. She was subsequently admitted to the hospital on observation status for further evaluation and treatment. Past Medical History Cardiac Medical History: Reports: Congestive Heart Failure, Hypertension Denies: Atrial Fibrillation, Coronary Artery Disease, DVT, Myocardial Infarction, Hyperlipidema, Pulmonary Embolism Pulmonary Medical History: Reports: Asthma, Bronchitis, Chronic Obstructive Pulmonary Disease (COPD), Pneumonia, Respiratory Failure - Chronic respiratory failure with hypoxia EENT Medical History: Denies: Cataracts, Ears - Hearing aids Neurological Medical History: Reports: Seizures - Single seizure in the remote past Denies: Hemorrhagic CVA, Ischemic CVA Endocrine Medical History: Denies: Diabetes Mellitus Type 1, Diabetes Mellitus Type 2, Hyperthyroidism, Hypothyroidism, Obesity Renal/ Medical History: Denies: Chronic Kidney Disease, Nephrolithiasis Malignancy Medical History: Reports: None GI Medical History: Denies: Cirrhosis, Crohn's Disease, Gastroesophageal Reflux Disease, Hepatitis, Peptic Ulcer Disease, Ulcerative Colitis Musculoskeltal Medical History: Reports: Arthritis Denies: Gout Skin Medical History: Denies: Eczema, Psoriasis Psychiatric Medical History: Reports: Bipolar Disorder, Depression, Tobacco Dependency Denies: Alcohol Dependency, Substance Abuse Traumatic Medical History: Reports: None Hematology: Denies: Anemia, Bleeding Tendencies Infectious Medical History: Reports: Methicillin-Resistant Staph Aureus Past Surgical History Past Surgical History: Reports: Section, Orthopedic Surgery - right knee Social History Information Source: Patient Lives with: Spouse/Significant other Smoking Status: Current Every Day Smoker Electronic Cigarette use?: No Frequency of Alcohol Use: None Hx Recreational Drug Use: Yes Drugs: Marijuana Hx Prescription Drug Abuse: No - Advance Directive Resuscitation Status: Full Code Surrogate healthcare decision maker:: Milobenjamín Baca Family History Family History: COPD, Hypertension. denies: CAD, CVA, DM, Malignancy Parental Family History Reviewed: Yes Children Family History Reviewed: No Sibling(s) Family History Reviewed.: Yes Medication/Allergy Home Medications: Aripiprazole [Abilify 5 mg Tablet] 5 mg PO DAILY 08/22/19 Bupropion HCl [Wellbutrin Xl 300mg 24hr Tablet] 300 mg PO DAILY 08/22/19 Citalopram Hydrobromide [Celexa 40 mg Tablet] 40 mg PO DAILY 08/22/19 Risperidone [Risperdal] 3 mg PO Q12 08/22/19 Azithromycin [Zithromax 250 mg Tablet] 250 mg PO MOWEFR@1000 01/13/20 Benztropine Mesylate [Cogentin 1 mg Tablet] 1 tab PO BID 01/13/20 Furosemide [Lasix 20 mg Tablet] 10 mg PO BID 01/13/20 Albuterol Sulfate [Ventolin 0.083% Neb 2.5 mg/3 mL Ampul] 1 vial NEB Q6 #90 vial 01/17/20 Budesonide [Pulmicort 90 mcg Flexhaler] 1 inh IH DAILY #2 inhaler 01/17/20 Prednisone [Deltasone 20 mg Tablet] 20 mg PO BID 3 Days 01/17/20 Tiotropium [place] [Spiriva Respimat] 1 puff IH BID #2 inhaler 01/17/20 Azithromycin [Zithromax 250 mg Tablet] 250 mg PO ASDIR PRN #6 tablet 05/25/20 Prednisone [Deltasone 20 mg Tablet] 1 tab PO DAILY 4 Days #4 tablet 05/25/20 Albuterol Sulfate [Proair HFA Inhalation Aerosol 8.5 gm MDI] 2 puff IH Q4HP PRN #1 05/28/20 Allergies/Adverse Reactions: No Known Allergies Allergy (Verified 05/28/20 12:47) Review of Systems Constitutional: ABSENT: chills, fever(s) Eyes: ABSENT: visual disturbances, other - Eye pain Ears: ABSENT: hearing changes, other - Ear pain Nose, Mouth, and Throat: ABSENT: headache(s), sore throat Cardiovascular: PRESENT: dyspnea on exertion. ABSENT: chest pain, palpitations Respiratory: PRESENT: as per HPI, cough, dyspnea, sputum - Clear. ABSENT: hemoptysis Gastrointestinal: ABSENT: abdominal pain, constipation, diarrhea, nausea, vomiting Genitourinary: ABSENT: dysuria, hematuria Musculoskeletal: ABSENT: back pain, joint swelling Integumentary: ABSENT: pruritus, rash Neurological: ABSENT: confusion, convulsions, focal weakness, memory loss, syncope Psychiatric: ABSENT: anxiety, depression Endocrine: ABSENT: cold intolerance, heat intolerance Hematologic/Lymphatic: ABSENT: easy bleeding, easy bruising Allergic/Immunologic: ABSENT: seasonal rhinorrhea Physical Exam Vital Signs: Temp Pulse Resp BP Pulse Ox 97.8 F 25 H 174/82 H 99 08/07/20 21:55 08/08/20 01:01 08/08/20 01:00 08/08/20 01:01 Intake & Output 08/06/20 08/07/20 08/08/20 23:59 23:59 23:59 Weight 63.503 kg General appearance: PRESENT: cooperative, mild distress - Mild dyspnea Head exam: PRESENT: atraumatic, normocephalic Eye exam: PRESENT: conjunctiva pink. ABSENT: conjunctival injection, scleral icterus Ear exam: PRESENT: normal external ear exam. ABSENT: bleeding, drainage Mouth exam: PRESENT: dry mucosa, neck supple Neck exam: ABSENT: thyromegaly, tracheal deviation Respiratory exam: PRESENT: decreased breath sounds - Mildly decreased breath sounds noted throughout all hunt, prolonged expiratory phas - Mildly prolonged expiratory phase to auscultation in all hunt, symmetrical, tachypnea, wheezes - Moderate expiratory wheezing present throughout all hunt Cardiovascular exam: PRESENT: RRR. ABSENT: clicks, gallop, rubs Pulses: PRESENT: normal radial pulses, normal dorsalis pedis pul Vascular exam: PRESENT: normal capillary refill. ABSENT: pallor GI/Abdominal exam: PRESENT: normal bowel sounds, soft. ABSENT: tenderness Rectal exam: PRESENT: deferred Extremities exam: ABSENT: joint swelling, pedal edema Musculoskeletal exam: ABSENT: deformity, dislocation Neurological exam: PRESENT: alert, oriented to person, oriented to place, oriented to time, oriented to situation, CN II-XII grossly intact. ABSENT: motor sensory deficit Psychiatric exam: PRESENT: appropriate affect, normal mood Skin exam: PRESENT: dry, intact, warm. ABSENT: jaundice, rash, urticaria Results Laboratory Results: 08/07/20 22:03 08/07/20 22:03 08/07/20 08/07/20 08/07/20 22:03 22:03 23:03 WBC 9.5 RBC 4.10 Hgb 11.3 L Hct 34.0 L MCV 83 MCH 27.7 MCHC 33.4 RDW 13.9 Plt Count 285 Seg Neutrophils % 72.8 Sodium 121.5 L Potassium 3.9 Chloride 79 L Carbon Dioxide 38 H Anion Gap 5 BUN 16 Creatinine 0.89 Est GFR ( Amer) > 60 Glucose 101 Calcium 8.7 Total Bilirubin 0.4 AST 22 Alkaline Phosphatase 101 Total Protein 6.0 L Albumin 3.8 Urine Color COLORLESS Urine Appearance CLEAR Urine pH 7.0 Ur Specific [place] 1.002 Urine Protein NEGATIVE Urine Glucose (UA) NEGATIVE Urine Ketones NEGATIVE Urine Blood NEGATIVE Urine Nitrite NEGATIVE Ur Leukocyte Esterase NEGATIVE 08/07/20 22:03 Troponin I < 0.012 Impressions: Chest X-Ray 08/07/20 22:14 IMPRESSION: No acute cardiopulmonary process. Underlying emphysema with fibrotic change as before copyright 2010 [employer]- All Rights Reserved Assessment and Plan - Diagnosis (1) COPD exacerbation Is this a current diagnosis for this admission?: Yes (2) Acute and chronic respiratory failure with hypoxia Is this a current diagnosis for this admission?: Yes (3) Hyponatremia Is this a current diagnosis for this admission?: Yes (4) Congestive heart failure Qualifiers: Heart failure type: unspecified Heart failure chronicity: chronic Qualified Code(s): I50.9 - Heart failure, unspecified Is this a current diagnosis for this admission?: Yes (5) Hypertension Qualifiers: Hypertension type: essential hypertension Qualified Code(s): I10 - Essential (primary) hypertension Is this a current diagnosis for this admission?: Yes (6) Bipolar 1 disorder Is this a current diagnosis for this admission?: Yes (7) Tobacco use disorder, continuous Is this a current diagnosis for this admission?: Yes - Plan Summary Summary: Patient is admitted observation status on the medical floor with telemetry, where she received routine supportive and symptomatic cares. She will be treated with an aggressive pulmonary toilet utilizing nebulized Xopenex, Pulmicort and Atrovent. She will receive supplemental oxygen via nasal cannula or BiPAP as required to maintain adequate oxygen saturations. She will complete a burst dose protocol of intravenous Solu-Medrol with later conversion to oral s teroids. Smoking cessation is advised and counseled briefly at the bedside. A nicotine replacement patch is available for the patient's use, if desired. Patient will continue on her usual medications, as appropriate, as soon as her medication list has been verified and reconciled. Patient will be on a cardiac diet. CBCs, arterial blood gases, metabolic profiles and additional laboratory and/or radiographic evaluations will be obtained as needed. - Time Time Spent with patient: Less than 15 minutes Smoking Cessation Education: 3 to 10 minutes Medications reviewed and adjusted accordingly: Yes Anticipated Discharge Disposition: Home, Self Care Anticipated Discharge Timeframe: within 36 hours - Inpatient Certification Based on my medical assessment, after consideration of the patient's comorbidities, presenting symptoms, or acuity I expect that the services needed warrant INPATIENT care.: No I certify that my determination is in accordance with my understanding of Medicare's requirements for reasonable and necessary INPATIENT services [42 CFR 412.3e].: No
[2020-08-08] MEDS ORDERED: BUDESONIDE NEB 0.5 MG/2 ML AMPUL NEB SCH (08:00)
[2020-08-08] MEDS ORDERED: LEVALBUTEROL HCL NEB 1.25 MG/3 ML AMPUL NEB SCH (08:00)
[2020-08-08] MEDS ORDERED: IPRATROPIUM BROMIDE 0.02% NEB 0.5 MG/2.5 ML AMPUL NEB SCH (08:00)
[2020-08-08 08:20] VITALS: BP 186/84
[2020-08-08] MEDS ORDERED: FAMOTIDINE 20 MG TABLET PO SCH (10:00)
--- NOTE | 2020-08-08 17:35 | Left Against Medical Advice ---
Against Medical Advice Admission Date/Time: 08/08/20 01:15 Primary Care Provider: DASHA JAMES Date of Patient Emigration: 08/08/20 - Diagnosis: (1) Acute on chronic respiratory failure with hypoxia and hypercapnia Is this a current diagnosis for this admission?: Yes (2) Bipolar 1 disorder Is this a current diagnosis for this admission?: Yes (3) COPD exacerbation Is this a current diagnosis for this admission?: Yes (4) Congestive heart failure Is this a current diagnosis for this admission?: Yes (5) Hypertension Is this a current diagnosis for this admission?: Yes (6) Tobacco use disorder, continuous Is this a current diagnosis for this admission?: Yes - Summary: Summary: Please see Admission and Progress Notes as well. JULIO BACA is a 55 F, who LEFT AGAINST MEDICAL ADVICE. The Patient was admitted on 08/08/20 01:15. Patient was admitted for acute on chronic respiratory failure with hypoxia and hypercapnia secondary to COPD and CHF exacerbations. She was treated with supplemental oxygen, BiPAP, scheduled as needed nebulizer treatments, and steroid therapy. Unfortunately, the patient elected to leave AGAINST MEDICAL ADVICE prior to transferring from the emergency department to her floor bed.
== END 2020-08-08 10:00 | disposition left against medical advice (07) ==
LOC: ER 21:54 → EH 08-08 01:15
PROVIDERS: ADMIT Emergency Medicine; ATTEND Registered Nurse
DX: J96.22 Acute and chronic respiratory failure with hypercapnia (principal); J96.21 Acute and chronic respiratory failure with hypoxia; J44.1 Chronic obstructive pulmonary disease with (acute) exacerbation; I11.0 Hypertensive heart disease with heart failure; I50.9 Heart failure, unspecified; E87.1 Hypo-osmolality and hyponatremia; F31.9 Bipolar disorder, unspecified; F17.200 Nicotine dependence, unspecified, uncomplicated; I45.10 Unspecified right bundle-branch block; Z82.49 Family history of ischemic heart disease and other diseases of the circulatory system; Z79.899 Other long term (current) drug therapy
CPT/HCPCS: 94640 ×2; 99291; 36415 ×2; 82553; 82803; 82550; 83735; 85025; 85027; 80048; 80053; 81001; 84484 ×2; 71045; 36600; 94660; G0378; J1644; J2920; J7030; J7644; J7614

== ENCOUNTER 2020-09-06 20:03 | Emergency (ER) | payer OTHER, MEDICARE ==
[2020-09-06] MEDS ORDERED: IPRATROPIUM/ALBUTEROL 0.5-2.5 MG/3 ML AMPUL NEB ONE (20:09)
--- NOTE | 2020-09-06 21:11 | RADIOLOGY REPORT (SQ) ---
EXAM DESCRIPTION: XR CHEST 1 VIEW COMPLETED DATE/TME: 09/06/2020 20:09 CLINICAL HISTORY: 55 years, Female, shortness of breath COMPARISON: August 07, 2020 NUMBER OF VIEWS: 1 TECHNIQUE: Portable AP upright view the chest was obtained at 8:26 PM. LIMITATIONS: Overexposed lung hunt FINDINGS: Heart size is normal. There is subtle asymmetric increased interstitial opacity within the right mid and lower lung zones, nonspecific. No dense airspace consolidation. No pleural effusion or pneumothorax. There is an old left humeral neck fracture and there is chronic elevation of the lateral right clavicle. IMPRESSION: Subtle interstitial opacities right mid and lower lung zones which could be on the basis of edema, inflammation, or infiltration. Clinical correlation is recommended. copyright 2010 [employer]- All Rights Reserved
[2020-09-06 21:29] LABS: ABSOLUTE EOSINOPHILS # (AUTO) 0.2 10^3/uL (0.0-0.6); ABSOLUTE LYMPHOCYTES (AUTO) 1.7 10^3/uL (0.5-4.7); ABSOLUTE MONOCYTES (AUTO) 0.8 10^3/uL (0.1-1.4); BASOPHILS % (AUTO) 0.3 % (0-2); EOSINOPHILS % (AUTO) 1.9 % (0-6); HEMATOCRIT 34.8 % (36.0-47.0); HEMOGLOBIN 11.3 g/dL (12.0-15.5); LYMPHOCYTES % (AUTO) 19.1 % (13-45); MEAN CORPUSCULAR HEMOGLOBIN 27.8 pg (27.0-33.4); MEAN CORPUSCULAR HGB CONC 32.5 g/dL (32.0-36.0); MEAN CORPUSCULAR VOLUME 86 fl (80-97); MONOCYTES % (AUTO) 9.7 % (3-13); PLATELET COUNT 386 10^3/uL (150-450); RED BLOOD COUNT 4.08 10^6/uL (3.72-5.28); TOTAL CELLS COUNTED % (AUTO) 100 %; WHITE BLOOD COUNT 8.6 10^3/uL (4.0-10.5)
[2020-09-06 21:40] LABS: ALBUMIN 3.6 g/dL (3.5-5.0); ALKALINE PHOSPHATASE 92 U/L (38-126); ASPARTATE AMINO TRANSFERASE 19 U/L (14-36); BILIRUBIN,DIRECT 0.4 mg/dL (0.0-0.4); BILIRUBIN,TOTAL 0.5 mg/dL (0.2-1.3); BLOOD UREA NITROGEN 13 mg/dL (7-20); CALCIUM 9.9 mg/dL (8.4-10.2); CHLORIDE 83 mmol/L (98-107); GLUCOSE 99 mg/dL (75-110); POTASSIUM 4.4 mmol/L (3.6-5.0); TOTAL PROTEIN 5.7 g/dL (6.3-8.2)
[2020-09-06 21:48] LABS: ANION GAP 4 (5-19)
[2020-09-06 21:50] LABS: CARBON DIOXIDE 42 mmol/L (22-30)
[2020-09-06] MEDS ORDERED: ACETAMINOPHEN 325 MG TABLET PO ONE (22:12)
--- NOTE | 2020-09-06 22:14 | ER Document Report ---
ED Respiratory Problem - General Chief Complaint: Respiratory Distress Stated Complaint: RESPIRATORY Primary Care Provider: AUBREY CRISTOBAL FNP-C [Primary Care Provider] - 09/09/20 Notes: Patient is a 55-year-old female who is a current smoker, has a history of COPD and chronic respiratory failure, that comes emergency department for chief c omplaint of wheezing, shortness of breath, cough with brownish sputum production. She states she started having worsening shortness of breath since yesterday but she became very short of breath just prior to arrival with EMS, EMS noted tachypnea and wheezes, patient was given 2 DuoNeb's, 125 mg of Solu- Medrol. She states she started to develop a headache now but her breathing is significantly improved. She denies fever, she states she had a recent negative COVID-19 test, she denies any other complaints. She is on home oxygen at 2 L nasal cannula at all times. TRAVEL OUTSIDE OF THE [place] IN LAST 30 DAYS: No - Related Data Allergies/Adverse Reactions: No Known Allergies Allergy (Verified 09/07/20 02:07) Past Medical History - General Information source: Patient - Social History Smoking Status: Current Every Day Smoker Smoking Education Provided: Yes - <3 min Frequency of alcohol use: None Drug Abuse: None Lives with: Family Family History: Reviewed & Not Pertinent, COPD, Hypertension. denies: CAD, CVA, DM, Malignancy - Past Medical History Cardiac Medical History: Reports: Hx Congestive Heart Failure, Hx Hypertension Denies: Hx Atrial Fibrillation, Hx Coronary Artery Disease, Hx DVT, Hx Heart Attack, Hx Hypercholesterolemia, Hx Pulmonary Embolism Pulmonary Medical History: Reports: Hx Asthma, Hx Bronchitis, Hx COPD, Hx Pneumonia, Hx Respiratory Failure - Chronic respiratory failure with hypoxia Neurological Medical History: Reports: Hx Seizures - Single seizure in the remote past. Denies: Hx Cerebrovascular Accident Endocrine Medical History: Denies: Hx Diabetes Mellitus Type 1, Hx Diabetes Mellitus Type 2, Hx Hyperthyroidism, Hx Hypothyroidism Renal/ Medical History: Reports: Hx Kidney Stones GI Medical History: Denies: Hx Cirrhosis, Hx Crohn's Disease, Hx Gastroesophageal Reflux Disease, Hx Hepatitis, Hx Ulcerative Colitis Musculoskeletal Medical History: Reports Hx Arthritis, Denies Hx Gout Skin Medical History: Denies Hx Eczema, Denies Hx Psoriasis Psychiatric Medical History: Reports: Hx Bipolar Disorder, Hx Depression Infectious Medical History: Reports: Hx MRSA. Denies: Hx Hepatitis Past Surgical History: Reports: Hx Section, Hx Orthopedic Surgery - right knee. Denies: Hx Hysterectomy, Hx Pacemaker - Immunizations Hx Diphtheria, Pertussis, Tetanus Vaccination: No Hx Pneumococcal Vaccination: 01/12/13 Review of Systems - Review of Systems Constitutional: No symptoms reported EENT: No symptoms reported Cardiovascular: No symptoms reported Respiratory: See HPI Gastrointestinal: No symptoms reported Genitourinary: No symptoms reported Female Genitourinary: No symptoms reported Musculoskeletal: No symptoms reported Skin: No symptoms reported Hematologic/Lymphatic: No symptoms reported Neurological/Psychological: No symptoms reported Physical Exam - Vital signs Vitals: Resp Pulse Ox 24 H 100 09/06/20 20:04 09/06/20 20:04 - Notes Notes: GENERAL: Alert, interactive, no signs of distress HEAD: Normocephalic, atraumatic. EYES: Pupils equal, round, and reactive to light. Extraocular movements intact. ENT: Oral mucosa moist, tongue midline. Oropharynx unremarkable. Airway patent. LUNGS: Decreased breath sounds bilaterally. Expiratory wheezes throughout noted. No rales or rhonchi. No tachypnea or respiratory distress. HEART: Regular rate and rhythm. No murmur ABDOMEN: Soft, non-tender. Non-distended. EXTREMITIES: Moves all 4 extremities spontaneously. No edema, normal radial and dorsalis pedis pulses bilaterally. No cyanosis. BACK: no cervical, thoracic, lumbar midline tenderness. No saddle anesthesia, normal distal neurovascular exam. Moves all extremities in full range of motion. NEUROLOGICAL: Alert and oriented x3. Normal speech. Cranial nerves II through XII grossly intact. Strength 5/5 in all extremities. PSYCH: Normal affect, normal mood. SKIN: Warm, dry, normal turgor. No rashes or lesions noted. Course - Re-evaluation Re-evalutation: On my initial examination patient did have some expiratory wheezing but no tachypnea, labored breathing, and she is not hypoxic on her home oxygen levels. She is completing her treatments with final DuoNeb and magnesium, she will be evaluated again after her work-up. CBC unremarkable, troponin is not elevated. BNP is not elevated. Chemistry shows bicarbonate of greater than 40, sodium of 129. Otherwise unremarkable. Venous blood gas shows very elevated CO2 at 90 with elevated bicarbonate at 45, but normal pH. On reevaluation wheezing is completely resolved, patient states she feels great, patient is asking for an inhaler refill and to discharge home. Chest x-ray shows possible pneumonia. Patient just had a negative COVID-19 test. I discussed with Dr. Hackett, he recommends ABG be performed because of patient's improvement in appearance. In addition to this on previous records VBG always appears very elevated and ABG has been much better by comparison with this particular patient. If ABG is unremarkable patient can be sent home with antibiotics, steroids, albuterol, follow-up, return precautions. ABG shows CO2 at 67 which is approximately patient is a good baseline. No hypoxia on patient's 2 L. On reevaluation patient continues to to appear well, have no wheezing, and request discharge. Patient was discharged antibiotics, steroids, albuterol, and I discussed close follow-up, smoking cessation, and strict return precautions. Patient states appreciation and agreement. Stable and well-appearing at time of discharge. - Vital Signs Vital signs: Temp Pulse Resp BP Pulse Ox 98.6 F 27 H 157/89 H 98 09/07/20 02:21 09/07/20 02:21 09/07/20 02:21 09/07/20 02:21 - Laboratory Result Diagrams: 09/06/20 20:07 09/06/20 20:07 Laboratory results interpreted by me: 09/06/20 09/06/20 09/06/20 20:07 20:07 20:07 Hgb 11.3 L Hct 34.8 L Carbonic Acid ABG pCO2 ABG pO2 ABG HCO3 ABG Total CO2 ABG O2 Saturation VBG pCO2 90.4 H* VBG HCO3 45.7 H Sodium 129.4 L Chloride 83 L Carbon Dioxide 42 H* Anion Gap 4 L Total Protein 5.7 L 09/07/20 01:40 Hgb Hct Carbonic Acid 2.03 H ABG pCO2 67.3 H ABG pO2 160.6 H ABG HCO3 40.6 H ABG Total CO2 42.6 H ABG O2 Saturation 99.0 H VBG pCO2 VBG HCO3 Sodium Chloride Carbon Dioxide Anion Gap Total Protein - EKG Interpretation by Me Additional EKG results interpreted by me: EKG shows sinus rhythm at a rate of 85, QTC of 428, no T wave inversions or ST segment changes in consecutive leads. There is some artifact and patient moveme nt. Discharge - Discharge Clinical Impression: Wheezing, Cough, COPD exacerbation, Tobacco use disorder, continuous Condition: Stable Disposition: HOME, SELF-CARE Additional Instructions: Your evaluation is consistent with a COPD exacerbation and possible early developing pneumonia. We are covering you for this. Use your albuterol as prescribed, take the antibiotics as prescribed, take the prednisone as prescribed. Follow-up with primary care. Stop smoking. Come back if you worsen including developing fever, difficulty breathing, chest pain, or any other concerning or worsening symptoms. Prescriptions: Prednisone [Deltasone 20 mg Tablet] 3 tab PO DAILY 5 Days #15 tablet Albuterol Sulfate [Proair HFA Inhalation Aerosol 8.5 gm MDI] 2 puff IH Q4H PRN #1 mdi PRN Reason: Doxycycline Hyclate [Vibramycin 100 mg Tablet] 100 mg PO BID 7 Days #14 tablet Forms: Smoking Cessation Education Referrals: AUBREY CRISTOBAL FNP-C [Primary Care Provider] - 09/09/20
[2020-09-06 22:17] LABS: VENOUS BLOOD BASE EXCESS 15.8 mmol/L; VENOUS BLOOD HCO3 45.7 mmol/L (20-32); VENOUS BLOOD PH 7.32 (7.30-7.42)
[2020-09-06 22:18] LABS: VENOUS BLOOD PCO2 90.4 mmHg (35-63)
[2020-09-06 22:39] LABS: NT PRO BNP 56 pg/mL (<125)
[2020-09-06 22:39] LABS: APPEARANCE,URINE CLEAR; BILIRUBIN,URINE NEGATIVE (NEGATIVE); COLOR,URINE STRAW; GLUCOSE, URINE NEGATIVE (NEGATIVE); KETONES,URINE NEGATIVE (NEGATIVE); LEUKOCYTE ESTERASE,URINE NEGATIVE (NEGATIVE); NITRITE,URINE NEGATIVE (NEGATIVE); PROTEIN,URINE NEGATIVE (NEGATIVE); URINE SPECIFIC GRAVITY 1.004; UROBILINOGEN,URINE NEGATIVE mg/dL (<2.0)
[2020-09-06] MEDS: MAGNESIUM SULFATE/D5W 1 GM/100 ML RTUPB IV SCH (22:39)
[2020-09-06 22:41] LABS: TROPONIN I < 0.012 ng/mL
[2020-09-07] MEDS: MAGNESIUM SULFATE/D5W 1 GM/100 ML RTUPB IV SCH (00:40)
[2020-09-07 01:55] LABS: ARTERIAL BLOOD FIO2 2L; ARTERIAL BLOOD H2CO3 2.03 mmol/L (1.05-1.35); ARTERIAL BLOOD HCO3 40.6 mmol/L (20-24); ARTERIAL BLOOD PCO2 67.3 mmHg (35-45); ARTERIAL BLOOD PO2 160.6 mmHg (80-100); ARTERIAL BLOOD TOTAL CO2 42.6 mmol/L (21-25)
[2020-09-07] MEDS ORDERED: DOXYCYCLINE HYCLATE 100 MG TABLET PO ONE (02:00)
[2020-09-07] MEDS ORDERED: ALBUTEROL SULFATE HFA (90 MCG/PUFF) 8 GM MDI IH ONE (02:02)
[2020-09-07 02:25] VITALS: BP 157/89
--- NOTE | 2020-09-07 09:40 | EKG REPORT ---
SEVERITY:- ABNORMAL ECG - SINUS RHYTHM INCOMPLETE RIGHT BUNDLE BRANCH BLOCK : Confirmed by: Batsheva Rivas 07-Sep-2020 09:40:06
== END 2020-09-07 03:12 | disposition home or self-care (01) ==
LOC: ER 20:03
DX: J44.1 Chronic obstructive pulmonary disease with (acute) exacerbation (principal); R05 Cough; R06.2 Wheezing; R06.82 Tachypnea, not elsewhere classified; R51.9 Headache, unspecified; Z99.81 Dependence on supplemental oxygen; F17.200 Nicotine dependence, unspecified, uncomplicated; I50.9 Heart failure, unspecified; I11.0 Hypertensive heart disease with heart failure
CPT/HCPCS: 93005; 94640; 99285; 96365; 96366; 36415; 87040; 82803 ×2; 83605; 85025; 87077; 80053; 81001; 84484; 83880; 71045; 93010; J3475 ×2; J3490; 87186

== ENCOUNTER 2020-10-15 12:48 | Observation (INO) | payer MEDICARE, OTHER ==
[2020-10-15 13:30] LABS: ABSOLUTE EOSINOPHILS # (AUTO) 0.1 10^3/uL (0.0-0.6); ABSOLUTE LYMPHOCYTES (AUTO) 1.2 10^3/uL (0.5-4.7); ABSOLUTE MONOCYTES (AUTO) 0.6 10^3/uL (0.1-1.4); ABSOLUTE NEUT (AUTO) 3.9 10^3/uL (1.7-8.2); BASOPHILS % (AUTO) 0.5 % (0-2); EOSINOPHILS % (AUTO) 1.1 % (0-6); HEMATOCRIT 31.6 % (36.0-47.0); HEMOGLOBIN 10.2 g/dL (12.0-15.5); LYMPHOCYTES % (AUTO) 20.9 % (13-45); MEAN CORPUSCULAR HEMOGLOBIN 27.4 pg (27.0-33.4); MEAN CORPUSCULAR HGB CONC 32.3 g/dL (32.0-36.0); MEAN CORPUSCULAR VOLUME 85 fl (80-97); MONOCYTES % (AUTO) 9.5 % (3-13); PLATELET COUNT 217 10^3/uL (150-450); RED BLOOD COUNT 3.72 10^6/uL (3.72-5.28); RED CELL DISTRIBUTION WIDTH 14.5 % (11.5-14.0); TOTAL CELLS COUNTED % (AUTO) 100 %; WHITE BLOOD COUNT 5.8 10^3/uL (4.0-10.5)
[2020-10-15 14:00] LABS: ALBUMIN 3.5 g/dL (3.5-5.0); ALKALINE PHOSPHATASE 86 U/L (38-126); ASPARTATE AMINO TRANSFERASE 21 U/L (14-36); BILIRUBIN,DIRECT 0.2 mg/dL (0.0-0.4); BILIRUBIN,TOTAL 0.5 mg/dL (0.2-1.3); BLOOD UREA NITROGEN 10 mg/dL (7-20); CALCIUM 9.2 mg/dL (8.4-10.2); CHLORIDE 85 mmol/L (98-107); GLUCOSE 87 mg/dL (75-110); POTASSIUM 4.1 mmol/L (3.6-5.0); TOTAL PROTEIN 5.7 g/dL (6.3-8.2)
--- NOTE | 2020-10-15 14:04 | RADIOLOGY REPORT (SQ) ---
EXAM DESCRIPTION: CHEST SINGLE VIEW IMAGES COMPLETED DATE/TIME: 10/15/2020 1:38 pm REASON FOR STUDY: shorntess of breath COMPARISON: 09/06/2020 EXAM PARAMETERS: NUMBER OF VIEWS: One view. TECHNIQUE: Single frontal radiographic view of the chest acquired. RADIATION DOSE: NA LIMITATIONS: None. FINDINGS: LUNGS AND PLEURA: Persistent appearance of subtle increased interstitial markings at the r ight lung base, not significantly progressed in the study interval. No new focal consolidation, pleu ral effusion, or pneumothorax. MEDIASTINUM AND HILAR STRUCTURES: No masses. Contour normal. HEART AND VASCULAR STRUCTURES: Heart normal in size. Normal vasculature. BONES: No acute findings. HARDWARE: None in the chest. OTHER: No other significant finding. IMPRESSION: Stable radiographic appearance of the chest demonstrating minimally increased interstiti al markings at the right lung base. TECHNICAL DOCUMENTATION: JOB ID: [id number] [employer]- All Rights Reserved Reading location - IP/workstation name: [email or web address]
[2020-10-15 14:07] LABS: ANION GAP 6 (5-19); CARBON DIOXIDE 39 mmol/L (22-30)
[2020-10-15 14:10] LABS: APPEARANCE,URINE CLEAR; BILIRUBIN,URINE NEGATIVE (NEGATIVE); COLOR,URINE COLORLESS; GLUCOSE, URINE NEGATIVE (NEGATIVE); KETONES,URINE NEGATIVE (NEGATIVE); LEUKOCYTE ESTERASE,URINE NEGATIVE (NEGATIVE); NITRITE,URINE NEGATIVE (NEGATIVE); PROTEIN,URINE NEGATIVE (NEGATIVE); URINE SPECIFIC GRAVITY 1.003; UROBILINOGEN,URINE NEGATIVE mg/dL (<2.0)
--- NOTE | 2020-10-15 14:44 | ER Document Report ---
ED Medical Screen (RME) - General Chief Complaint: Breathing Difficulty Stated Complaint: SHORTNESS OF BREATH Time Seen by Provider: 10/15/20 14:42 Primary Care Provider: AUBREY CRISTOBAL FNP-C [Primary Care Provider] - Follow up as needed TRAVEL OUTSIDE OF THE [place] IN LAST 30 DAYS: No - HPI Notes: 10/15/20 15:21 53-year-old female history of COPD, chronic respiratory failure, hypertension, heart failure presents to the emergency room via EMS for shortness of breath, difficulty and that started today. Patient reports she had chest pain roughly an hour ago that lasted for a few seconds and went away, denies any radiation of pain. Just reports today she started with nausea and diarrhea. She was given in the ambulance 2 mg of magnesium, 125 Solu-Medrol and 8 mg of Zofran she stated did help some. She states she is been tested 3 times for Covid which has been negative, last one was a couple weeks ago. Patient states she overall does not feel very well today. Patient does wear 2 L nasal cannula at all times I have greeted and performed a rapid initial assessment of this patient. A comprehensive ED assessment and evaluation of the patient, analysis of test r esults and completion of the medical decision making process will be conducted by additional ED providers. PHYSICAL EXAMINATION: GENERAL: Chronically ill malnourished and in no acute distress. HEAD: Atraumatic, normocephalic. EYES: Pupils equal round extraocular movements intact, conjunctiva are normal. NECK: Normal range of motion CV: s1, s2 regular LUNGS: Wheezing heard throughout - Related Data Allergies/Adverse Reactions: No Known Allergies Allergy (Verified 09/07/20 02:07) Past Medical History - Social History Frequency of alcohol use: None Drug Abuse: None - Past Medical History Cardiac Medical History: Reports: Hx Congestive Heart Failure, Hx Hypertension Denies: Hx Atrial Fibrillation, Hx Coronary Artery Disease, Hx DVT, Hx Heart Attack, Hx Hypercholesterolemia, Hx Pulmonary Embolism Pulmonary Medical History: Reports: Hx Asthma, Hx Bronchitis, Hx COPD, Hx Pneumonia, Hx Respiratory Failure - Chronic respiratory failure with hypoxia Neurological Medical History: Reports: Hx Seizures - Single seizure in the remote past. Denies: Hx Cerebrovascular Accident Endocrine Medical History: Denies: Hx Diabetes Mellitus Type 1, Hx Diabetes Mellitus Type 2, Hx Hyperthyroidism, Hx Hypothyroidism Renal/ Medical History: Reports: Hx Kidney Stones GI Medical History: Denies: Hx Cirrhosis, Hx Crohn's Disease, Hx Gastroesophageal Reflux Disease, Hx Hepatitis, Hx Ulcerative Colitis Musculoskeltal Medical History: Reports Hx Arthritis, Denies Hx Gout Skin Medical History: Denies Hx Eczema, Denies Hx Psoriasis Psychiatric Medical History: Reports: Hx Bipolar Disorder, Hx Depression Infectious Medical History: Reports: Hx MRSA. Denies: Hx Hepatitis Past Surgical History: Reports: Hx Section, Hx Orthopedic Surgery - right knee. Denies: Hx Hysterectomy, Hx Pacemaker - Immunizations Hx Diphtheria, Pertussis, Tetanus Vaccination: No Physical Exam - Vital signs Vitals: Resp Pulse Ox 24 H 95 10/15/20 12:57 10/15/20 12:57 Course - Vital Signs Vital signs: Temp Pulse Resp BP Pulse Ox 98.4 F 20 96 10/15/20 13:06 10/15/20 13:06 10/15/20 13:23 - Laboratory Result Diagrams: 10/15/20 12:56 10/15/20 12:56 Laboratory results interpreted by me: 10/15/20 10/15/20 12:56 12:56 Hgb 10.2 L Hct 31.6 L RDW 14.5 H Sodium 130.2 L Chloride 85 L Carbon Dioxide 39 H Total Protein 5.7 L Doctor's Discharge - Discharge Referrals: AUBREY CRISTOBAL FNP-C [Primary Care Provider] - Follow up as needed
[2020-10-15] MEDS ORDERED: IPRATROPIUM/ALBUTEROL 0.5-2.5 MG/3 ML AMPUL NEB ONE ×3 (15:24→17:37)
[2020-10-15] MEDS ORDERED: NORMAL SALINE 1000 ML 1,000 ML IV ONE (17:35)
[2020-10-15] MEDS ORDERED: ACETAMINOPHEN 325 MG TABLET PO ONE (17:47)
--- NOTE | 2020-10-15 17:50 | EKG REPORT ---
SEVERITY:- ABNORMAL ECG - SINUS RHYTHM INCOMPLETE RIGHT BUNDLE BRANCH BLOCK : Confirmed by: Zack Jimenes MD 15-Oct-2020 17:49:58
--- NOTE | 2020-10-15 18:10 | ER Document Report ---
ED Respiratory Problem - General Chief Complaint: Breathing Difficulty Stated Complaint: SHORTNESS OF BREATH Time Seen by Provider: 10/15/20 14:42 TRAVEL OUTSIDE OF THE [place] IN LAST 30 DAYS: No - HPI Notes: Patient is a 55-year-old female with a past medical history of COPD on 3 L of chronic home O2 who presents with shortness of breath. Patient states that symptoms began today. She states she smoked a cigarette and she always gets shortness of breath after smoking a cigarette. Patient called EMS and was given Solu-Medrol, magnesium, breathing treatments. She states she feels much better. Patient denies any chest pain. She has no nausea or vomiting. She has a headache which is not new. No fevers or chills. She states she has a chronic cough productive of sputum. She was on antibiotics about 1 month ago for pneumonia and states that that has resolved. - Related Data Allergies/Adverse Reactions: No Known Allergies Allergy (Verified 09/07/20 02:07) Past Medical History - General Information source: Patient - Social History Smoking Status: Unknown if Ever Smoked Frequency of alcohol use: None Drug Abuse: None Family History: Reviewed & Not Pertinent, COPD, Hypertension. denies: CAD, CVA, DM, Malignancy - Past Medical History Cardiac Medical History: Reports: Hx Congestive Heart Failure, Hx Hypertension Denies: Hx Atrial Fibrillation, Hx Coronary Artery Disease, Hx DVT, Hx Heart Attack, Hx Hypercholesterolemia, Hx Pulmonary Embolism Pulmonary Medical History: Reports: Hx Asthma, Hx Bronchitis, Hx COPD, Hx Pneumonia, Hx Respiratory Failure - Chronic respiratory failure with hypoxia Neurological Medical History: Reports: Hx Seizures - Single seizure in the remote past. Denies: Hx Cerebrovascular Accident Endocrine Medical History: Denies: Hx Diabetes Mellitus Type 1, Hx Diabetes Mellitus Type 2, Hx Hyperthyroidism, Hx Hypothyroidism Renal/ Medical History: Reports: Hx Kidney Stones GI Medical History: Denies: Hx Cirrhosis, Hx Crohn's Disease, Hx Gastroesophageal Reflux Disease, Hx Hepatitis, Hx Ulcerative Colitis Musculoskeletal Medical History: Reports Hx Arthritis, Denies Hx Gout Skin Medical History: Denies Hx Eczema, Denies Hx Psoriasis Psychiatric Medical History: Reports: Hx Bipolar Disorder, Hx Depression Infectious Medical History: Reports: Hx MRSA. Denies: Hx Hepatitis Past Surgical History: Reports: Hx Section, Hx Orthopedic Surgery - right knee. Denies: Hx Hysterectomy, Hx Pacemaker - Immunizations Hx Diphtheria, Pertussis, Tetanus Vaccination: No Hx Pneumococcal Vaccination: 01/12/13 Review of Systems - Review of Systems Notes: CONSTITUTIONAL: No fever, fatigue or weight loss. SKIN: No rash. HENT: No congestion, ear pain, or sore throat. CARDIOVASCULAR: No chest pain or edema. RESPIRATORY: Positive for chronic cough. Positive for wheezing and shortness of breath. GASTROINTESTINAL: No abdominal pain, nausea, vomiting, bloody stools or diarrhea. MUSCULOSKELETAL: No joint pain or swelling. NEUROLOGIC: No seizures. No headache, focal weakness or sensory changes. HEMATOLOGIC: No unusual bruising or bleeding. PSYCHIATRIC: No depression or anxiety. Physical Exam - Vital signs Vitals: Resp Pulse Ox 24 H 95 10/15/20 12:57 10/15/20 12:57 - General General appearance: Appears well Notes: VITAL SIGNS: Within normal limits. On normal 3 L O2 GENERAL: No acute distress, non-toxic appearance. HEAD: Normal with no signs of head trauma. EYES: EOMI, conjunctiva normal, no discharge. EARS: Hearing grossly intact. NOSE: Normal. NECK: Normal range of motion, no tenderness, supple, no lymphadenopathy, No adenopathy, no JVD. CHEST: Diffuse wheezing throughout lung hunt. CARDIAC: Regular rate and rhythm. S1 and S2, without murmurs, gallops, or rubs. VASCULAR: No Edema. ABDOMEN: Normal and soft with no tenderness, no masses or pulsatile masses. GENITOURINARY: Normal, No tenderness MUSCULOSKELETAL: Good range of motion of all major joints. Extremities without clubbing, cyanosis or edema. NEUROLOGICAL: Alert and oriented x 3. No focal sensory or strength deficits. Speech normal. Follows commands appropriately. PSYCHIATRIC: Normal Affect, judgement and mood. SKIN: Normal appearance with no rashes or lesions. Course - Re-evaluation Re-evalutation: 10/15/20 18:15 Patient is on her normal 3 L. She states she feels much better. She was slightly tachycardic initially likely from the breathing treatments. She is now at a normal heart rate. She is 98%. We will do an ambulation trial and an ABG as she does have a little bit of high CO2 on her BMP. Likely patient will be discharged home. She has residual right-sided pneumonia on her x-ray which could be from the previous pneumonia that was already treated. Patient's ABG showed a high CO2 with mild acidotic findings. I did order BiPAP. I discussed with hospitalist for admission as patient also became winded when walking. And is agreeable to the plan for admission. 10/15/20 22:09 10/16/20 14:30 - Vital Signs Vital signs: Temp Pulse Resp BP Pulse Ox 97.8 F 104 H 19 131/74 H 96 10/16/20 12:17 10/16/20 12:17 10/16/20 12:17 10/16/20 12:17 10/16/20 12:17 - Laboratory Result Diagrams: 10/15/20 12:56 10/15/20 12:56 Laboratory results interpreted by me: 10/15/20 10/15/20 10/15/20 12:56 12:56 18:12 Hgb 10.2 L Hct 31.6 L RDW 14.5 H Carbonic Acid 2.26 H ABG pH 7.32 L ABG pCO2 75.1 H* ABG pO2 69.7 L ABG HCO3 37.7 H ABG Total CO2 40.0 H ABG O2 Saturation 91.8 L Sodium 130.2 L Chloride 85 L Carbon Dioxide 39 H Total Protein 5.7 L - Diagnostic Test Radiology reviewed: Image reviewed, Reports reviewed Discharge - Discharge Clinical Impression: COPD exacerbation Acute and chronic respiratory failure ([id number]) Qualifiers: Respiratory failure complication: hypoxia and hypercapnia Qualified Code(s): J96.21 - Acute and chronic respiratory failure with hypoxia Condition: Stable Disposition: ADMITTED OBSERVATION Unit Admitted: Medical Floor
[2020-10-15 18:33] LABS: ARTERIAL BLOOD BASE EXCESS 8.7 mmol/L; ARTERIAL BLOOD H2CO3 2.26 mmol/L (1.05-1.35); ARTERIAL BLOOD HCO3 37.7 mmol/L (20-24); ARTERIAL BLOOD O2 SATURATION 91.8 % (94-98); ARTERIAL BLOOD PH 7.32 (7.35-7.45); ARTERIAL BLOOD PO2 69.7 mmHg (80-100)
[2020-10-15 18:34] LABS: ARTERIAL BLOOD FIO2 3L
[2020-10-15 18:35] LABS: ARTERIAL BLOOD PCO2 75.1 mmHg (35-45)
[2020-10-15] MEDS ORDERED: AZITHROMYCIN 250 MG TABLET PO ONE (19:55)
[2020-10-15] MEDS ORDERED: KETOROLAC TROMETHAMINE INJ/PF 30 MG/1 ML SDV IV ONE (19:57)
[2020-10-15] MEDS ORDERED: ACETAMINOPHEN 325 MG TABLET PO PRN (20:39)
[2020-10-15] MEDS ORDERED: ALBUTEROL SULFATE 0.083% NEB 2.5 MG/3 ML AMPUL NEB PRN (20:39)
[2020-10-15] MEDS ORDERED: MAG HYDROX/AL HYDROX/SIMETH SUSP 30 ML UDCUP PO PRN (20:39)
[2020-10-15] MEDS ORDERED: ONDANSETRON HCL INJ/PF 4 MG/2 ML SDV IV PRN (20:39)
[2020-10-15] MEDS ORDERED: NICOTINE 14 MG/24 HR PATCH.TD24 TD PRN (20:48)
--- NOTE | 2020-10-15 21:00 | PDOC H&P ---
History of Present Illness Admission Date/PCP: DASHA JAMES Patient complains of: Shortness of breath History of Present Illness: JULIO BACA is a 55 year old female with history of COPD on 3 L nasal cannula, hypertension and tobacco abuse, who presents to the hospital with complaint of acute onset shortness of breath which started earlier today. The episode was incited by smoking cigarettes. She began to have worsening cough. She tried to write it out but no shortness of breath became more severe to the point where she felt like she was about to pass out. He subsequently called EMS. On arrival of the EMS patient was noted to be hypoxic at 86% on 3 L nasal cannula and was given steroids, breathing treatments as well as magnesium in the field. She was also tested for COVID-19 the rapid antigen test en route which was negative. Patient denies any chest pain fever chills or any sick contacts. She uses her nebulizer machine at home. Also reports recent treatment with antibiotics for pneumonia. Past Medical History Cardiac Medical History: Reports: Hypertension Denies: Atrial Fibrillation, Coronary Artery Disease, DVT, Myocardial Infarction, Hyperlipidema, Pulmonary Embolism Pulmonary Medical History: Reports: Bronchitis, Chronic Obstructive Pulmonary Disease (COPD), Pneumonia, Respiratory Failure - Chronic respiratory failure with hypoxia Neurological Medical History: Reports: Seizures - Single seizure in the remote past Endocrine Medical History: Denies: Diabetes Mellitus Type 1, Diabetes Mellitus Type 2, Hyperthyroidism, Hypothyroidism GI Medical History: Denies: Cirrhosis, Crohn's Disease, Gastroesophageal Reflux Disease, Hepatitis, Ulcerative Colitis Musculoskeltal Medical History: Reports: Arthritis Denies: Gout Skin Medical History: Denies: Eczema, Psoriasis Psychiatric Medical History: Reports: Bipolar Disorder, Depression Hematology: Denies: Anemia, Bleeding Tendencies Infectious Medical History: Reports: Methicillin-Resistant Staph Aureus Past Surgical History Past Surgical History: Reports: Section, Orthopedic Surgery - right knee Denies: Hysterectomy, Pacemaker Social History Smoking Status: Current Every Day Smoker Frequency of Alcohol Use: None Hx Recreational Drug Use: Yes Drugs: Marijuana Hx Prescription Drug Abuse: No - Advance Directive Resuscitation Status: Full Code Family History Family History: COPD, Hypertension. denies: CAD, CVA, DM, Malignancy Parental Family History Reviewed: Yes Children Family History Reviewed: Yes Sibling(s) Family History Reviewed.: Yes Medication/Allergy Home Medications: Aripiprazole [Abilify 5 mg Tablet] 5 mg PO DAILY 08/22/19 Bupropion HCl [Wellbutrin Xl 300mg 24hr Tablet] 300 mg PO DAILY 08/22/19 Citalopram Hydrobromide [Celexa 40 mg Tablet] 40 mg PO DAILY 08/22/19 Risperidone [Risperdal] 3 mg PO Q12 08/22/19 Azithromycin [Zithromax 250 mg Tablet] 250 mg PO MOWEFR@1000 01/13/20 Benztropine Mesylate [Cogentin 1 mg Tablet] 1 tab PO BID 01/13/20 Furosemide [Lasix 20 mg Tablet] 10 mg PO BID 01/13/20 Albuterol Sulfate [Ventolin 0.083% Neb 2.5 mg/3 mL Ampul] 1 vial NEB Q6 #90 vial 01/17/20 Budesonide [Pulmicort 90 mcg Flexhaler] 1 inh IH DAILY #2 inhaler 01/17/20 Prednisone [Deltasone 20 mg Tablet] 20 mg PO BID 3 Days 01/17/20 Tiotropium [place] [Spiriva Respimat] 1 puff IH BID #2 inhaler 01/17/20 Azithromycin [Zithromax 250 mg Tablet] 250 mg PO ASDIR PRN #6 tablet 05/25/20 Prednisone [Deltasone 20 mg Tablet] 1 tab PO DAILY 4 Days #4 tablet 05/25/20 Albuterol Sulfate [Proair HFA Inhalation Aerosol 8.5 gm MDI] 2 puff IH Q4HP PRN #1 05/28/20 Albuterol Sulfate [Proair HFA Inhalation Aerosol 8.5 gm MDI] 2 puff IH Q4H PRN #1 mdi 09/07/20 Doxycycline Hyclate [Vibramycin 100 mg Tablet] 100 mg PO BID 7 Days #14 tablet 09/07/20 Prednisone [Deltasone 20 mg Tablet] 3 tab PO DAILY 5 Days #15 tablet 09/07/20 Allergies/Adverse Reactions: No Known Allergies Allergy (Verified 09/07/20 02:07) Review of Systems Constitutional: ABSENT: chills, fever(s) Eyes: ABSENT: visual disturbances Ears: ABSENT: hearing changes Nose, Mouth, and Throat: ABSENT: headache(s) Cardiovascular: ABSENT: chest pain Respiratory: PRESENT: cough, dyspnea Gastrointestinal: ABSENT: diarrhea, nausea, vomiting Musculoskeletal: ABSENT: joint swelling Integumentary: ABSENT: diaphoresis Neurological: PRESENT: dizziness Psychiatric: ABSENT: anxiety Endocrine: ABSENT: polydipsia Hematologic/Lymphatic: ABSENT: lymphadenopathy Allergic/Immunologic: ABSENT: seasonal rhinorrhea Physical Exam Vital Signs: Temp Pulse Resp BP Pulse Ox 98.4 F 27 H 165/86 H 100 10/15/20 13:06 10/15/20 20:00 10/15/20 18:01 10/15/20 20:00 Intake & Output 10/14/20 10/15/20 10/16/20 06:59 06:59 06:59 Intake Total 1000 Balance 1000 Weight 63.1 kg General appearance: PRESENT: no acute distress, cooperative Eye exam: PRESENT: EOMI Mouth exam: PRESENT: neck supple Neck exam: ABSENT: JVD Respiratory exam: PRESENT: symmetrical, unlabored, wheezes - Mild end expiratory wheezing bilaterally. ABSENT: accessory muscle use, crackles, retraction, tachypnea Cardiovascular exam: PRESENT: RRR, +S1, +S2. ABSENT: tachycardia GI/Abdominal exam: PRESENT: soft. ABSENT: rebound, rigid, tenderness Extremities exam: ABSENT: pedal edema Neurological exam: PRESENT: alert, awake, oriented to person, oriented to place, oriented to time, oriented to situation Psychiatric exam: ABSENT: agitated, anxious Focused psych exam: ABSENT: pressured speech Skin exam: ABSENT: jaundice Results Laboratory Results: 10/15/20 12:56 10/15/20 12:56 10/15/20 10/15/20 10/15/20 12:56 12:56 13:20 WBC 5.8 RBC 3.72 Hgb 10.2 L Hct 31.6 L MCV 85 MCH 27.4 MCHC 32.3 RDW 14.5 H Plt Count 217 Seg Neutrophils % 68.0 Carbonic Acid HCO3/H2CO3 Ratio ABG pH ABG pCO2 ABG pO2 ABG HCO3 ABG O2 Saturation ABG Base Excess FiO2 Sodium 130.2 L Potassium 4.1 Chloride 85 L Carbon Dioxide 39 H Anion Gap 6 BUN 10 Creatinine 0.83 Est GFR ( Amer) > 60 Glucose 87 Calcium 9.2 Total Bilirubin 0.5 AST 21 Alkaline Phosphatase 86 Total Protein 5.7 L Albumin 3.5 Urine Color COLORLESS Urine Appearance CLEAR Urine pH 8.0 Ur Specific [place] 1.003 Urine Protein NEGATIVE Urine Glucose (UA) NEGATIVE Urine Ketones NEGATIVE Urine Blood NEGATIVE Urine Nitrite NEGATIVE Ur Leukocyte Esterase NEGATIVE 10/15/20 18:12 WBC RBC Hgb Hct MCV MCH MCHC RDW Plt Count Seg Neutrophils % Carbonic Acid 2.26 H HCO3/H2CO3 Ratio 16:1 ABG pH 7.32 L ABG pCO2 75.1 H* ABG pO2 69.7 L ABG HCO3 37.7 H ABG O2 Saturation 91.8 L ABG Base Excess 8.7 FiO2 3L Sodium Potassium Chloride Carbon Dioxide Anion Gap BUN Creatinine Est GFR ( Amer) Glucose Calcium Total Bilirubin AST Alkaline Phosphatase Total Protein Albumin Urine Color Urine Appearance Urine pH Ur Specific [place] Urine Protein Urine Glucose (UA) Urine Ketones Urine Blood Urine Nitrite Ur Leukocyte Esterase 10/15/20 10/15/20 12:56 12:56 Troponin I < 0.012 NT-Pro-B Natriuret Pep 113 Impressions: Chest X-Ray 10/15/20 13:07 IMPRESSION: Stable radiographic appearance of the chest demonstrating minimally increased interstitial markings at the right lung base. Assessment and Plan - Diagnosis (1) COPD with acute exacerbation Is this a current diagnosis for this admission?: Yes Plan: Chest x-ray does not show any consolidation. EMS performed rapid Covid antigen test which was reported to be negative. Notably has COPD GOLD C-D and uses trelegy at home. We will treat patient with frequent DuoNeb's, prednisone and azithromycin. Budesonide every 12. (2) Chronic respiratory failure with hypercapnia Is this a current diagnosis for this admission?: Yes Plan: ABG shows pH 7.32, PCO2 75, PO2 69 on 3 L. Bicarb is 39. Suggestive of chronic CO2 retention. I did notice that her SPO2 was 100% on 3 L which is what she uses at baseline. Given instructions to nurse to avoid over oxygenation and actually put her on room air or 1 L max to keep her sats in the low 90s maximum. She is mentating well and no longer in respiratory distress. Continue treatment with bronchodilators. She may benefit from nocturnal NIPPV therapy in the long run. 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 (3) Hypertension Qualifiers: Is this a current diagnosis for this admission?: Yes Plan: Resume home medications (4) Tobacco use disorder, continuous Is this a current diagnosis for this admission?: Yes Plan: Nicotine patch offered. Smoking cessation counseling offered. (5) Hyponatremia Is this a current diagnosis for this admission?: Yes Plan: Sodium is 130 but on review of her prior visits, this seems to be around her baseline. (6) Bipolar 1 disorder Is this a current diagnosis for this admission?: Yes Plan: Resume home meds - Time Time Spent with patient: 35 or more minutes Anticipated Discharge Disposition: Home, Self Care Anticipated Discharge Timeframe: within 36 hours
[2020-10-15] MEDS: ENOXAPARIN SODIUM INJ 40 MG/0.4 ML DISP.SYRIN SUBCUT SCH (21:20)
[2020-10-15] MEDS: BUPROPION HCL 75 MG TABLET PO SCH (23:17)
[2020-10-15] MEDS: RISPERIDONE 1 MG TABLET PO SCH (23:17)
[2020-10-16] MEDS: IPRATROPIUM/ALBUTEROL 0.5-2.5 MG/3 ML AMPUL NEB SCH ×3 (00:07→08:40)
[2020-10-16] MEDS ORDERED: IPRATROPIUM/ALBUTEROL 0.5-2.5 MG/3 ML AMPUL NEB SCH (02:00)
[2020-10-16 05:04] LABS: VENOUS BLOOD BASE EXCESS 9.7 mmol/L; VENOUS BLOOD HCO3 38.1 mmol/L (20-32); VENOUS BLOOD PH 7.32 (7.30-7.42)
[2020-10-16] MEDS ORDERED: GUAIFENESIN SYRP 200 MG/10 ML UDC PO PRN (05:18)
[2020-10-16 05:27] LABS: VENOUS BLOOD PCO2 75.8 mmHg (35-63)
[2020-10-16] MEDS: BUPROPION HCL 75 MG TABLET PO SCH (06:15)
[2020-10-16] MEDS ORDERED: BUDESONIDE NEB 0.25 MG/2 ML AMPUL NEB SCH (08:00)
[2020-10-16] MEDS: ENOXAPARIN SODIUM INJ 40 MG/0.4 ML DISP.SYRIN SUBCUT SCH (09:25)
[2020-10-16] MEDS ORDERED: BENZTROPINE MESYLATE 1 MG TABLET PO SCH (10:00)
[2020-10-16] MEDS ORDERED: AMLODIPINE BESYLATE 5 MG TABLET PO SCH (10:00)
[2020-10-16] MEDS ORDERED: FUROSEMIDE 20 MG TABLET PO SCH (10:00)
[2020-10-16] MEDS ORDERED: CITALOPRAM HYDROBROMIDE 20 MG TABLET PO SCH (10:00)
[2020-10-16] MEDS ORDERED: PREDNISONE 20 MG TABLET PO SCH (10:00)
[2020-10-16] MEDS ORDERED: KETOROLAC TROMETHAMINE INJ/PF 30 MG/1 ML SDV IV PRN (10:52)
[2020-10-16] MEDS: RISPERIDONE 1 MG TABLET PO SCH (11:33)
[2020-10-16] MEDS ORDERED: INFLUENZA QUAD (6MOS+) 2020-21 VAC 0.5 ML SYR IM ONE (11:45)
[2020-10-16] MEDS ORDERED: KETOROLAC TROMETHAMINE INJ/PF 30 MG/1 ML SDV IM ONE (12:00)
--- NOTE | 2020-10-16 12:22 | PDOC DISCHARGE SUMMARY ---
Impression - Admit/DC Date/PCP Admission Date/Primary Care Provider: 10/15/20 20:57 DASHA JAMES Discharge Date: 10/16/20 - Discharge Diagnosis (1) COPD with acute exacerbation Is this a current diagnosis for this admission?: Yes (2) Chronic respiratory failure with hypercapnia Is this a current diagnosis for this admission?: Yes (3) Hypertension Is this a current diagnosis for this admission?: Yes (4) Tobacco use disorder, continuous Is this a current diagnosis for this admission?: Yes (5) Bipolar 1 disorder Is this a current diagnosis for this admission?: Yes (6) Hyponatremia Is this a current diagnosis for this admission?: Yes - Additional Information Resuscitation Status: Full Code Referrals: AUBREY CRISTOBAL FNP-C [Primary Care Provider] - 10/21/20 11:30 am Prescriptions: Prednisone [Deltasone 20 mg Tablet] 40 mg PO DAILY #10 tablet Nicotine [Nicoderm 14 mg/24 Hr Transdermal Patch] 1 each TD DAILYP PRN #30 patch.td24 PRN Reason: Home Medications: Bupropion HCl [Wellbutrin Xl 300mg 24hr Tablet] 300 mg PO QAM 08/22/19 Citalopram Hydrobromide [Celexa 40 mg Tablet] 40 mg PO DAILY 08/22/19 Risperidone [Risperdal] 6 mg PO DAILY 08/22/19 Azithromycin [Zithromax 250 mg Tablet] 250 mg PO MOWEFR@1000 01/13/20 Furosemide [Lasix 20 mg Tablet] 20 mg PO QAM 01/13/20 Albuterol Sulfate [Proair HFA Inhalation Aerosol 8.5 gm MDI] 2 puff IH Q4HP PRN #1 05/28/20 Alprazolam [Xanax 0.5 mg Tablet] 0.5 mg PO BIDP PRN 10/16/20 Amlodipine Besylate [Norvasc 5 mg Tablet] 5 mg PO DAILY 10/16/20 Budesonide [Pulmicort Neb 0.5 mg/2 ml Ampul] 0.5 mg NEB RTQ12 10/16/20 Buspirone HCl 7.5 mg PO BID 10/16/20 Nicotine [Nicoderm 14 mg/24 Hr Transdermal Patch] 1 each TD DAILYP PRN #30 patch.td24 10/16/20 Perforomist 1 vial NEB RTBID 10/16/20 Prednisone [Deltasone 20 mg Tablet] 40 mg PO DAILY #10 tablet 10/16/20 History of Present Illiness History of Present Illness: JULIO BACA is a 55 year old female with history of COPD on 3 L nasal cannula, hypertension and tobacco abuse, who presents to the hospital with complaint of acute onset shortness of breath which started earlier today. The episode was incited by smoking cigarettes. She began to have worsening cough. She tried to write it out but no shortness of breath became more severe to the point where she felt like she was about to pass out. He subsequently called EMS. On arrival of the EMS patient was noted to be hypoxic at 86% on 3 L nasal cannula and was given steroids, breathing treatments as well as magnesium in the field. She was also tested for COVID-19 the rapid antigen test en route which was negative. Patient denies any chest pain fever chills or any sick contacts. She uses her nebulizer machine at home. Also reports recent treatment with antibiotics for pneumonia. Hospital Course Hospital Course: (1) COPD with acute exacerbation Chest x-ray does not show any consolidation. EMS performed rapid Covid antigen test which was reported to be negative. Notably has COPD GOLD C-D and uses trelegy at home. Patient received frequent DuoNeb's, prednisone and azithromycin. Budesonide every 12. (2) Chronic respiratory failure with hypercapnia ABG shows pH 7.32, PCO2 75, PO2 69 on 3 L. Bicarb is 39. Suggestive of chronic CO2 retention. I did notice that her SPO2 was 100% on 3 L which is what she uses at baseline. Given instructions to nurse to avoid over oxygenation and actually put her on room air or 1 L max to keep her sats in the low 90s maximum. She is mentating well and no longer in respiratory distress. Continue treatment with bronchodilators. She may benefit from nocturnal NIPPV therapy in the long run. 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 (3) Hypertension Resume home medications (4) Tobacco use disorder, continuous Nicotine patch offered. Smoking cessation counseling offered. (5) Hyponatremia Sodium is 130 but on review of her prior visits, this seems to be around her baseline. (6) Bipolar 1 disorder Resume home meds Patient is currently at her baseline. She feels a lot better and wants to go home. We reinforced smoking cessation importance in her situation. We sent her with a prescription of prednisone and nicotine patches. Physical Exam Vital Signs: Temp Pulse Resp BP Pulse Ox 97.8 F 104 H 19 146/60 H 96 10/16/20 10:00 10/16/20 08:41 10/16/20 08:41 10/16/20 08:41 10/16/20 08:41 Intake & Output 10/15/20 10/16/20 10/17/20 06:59 06:59 06:59 Intake Total 1622 370 Balance 1622 370 Weight 110 lb 0.171 oz Exam: General appearance: PRESENT: no acute distress, cooperative Eye exam: PRESENT: EOMI Mouth exam: PRESENT: neck supple Neck exam: ABSENT: JVD Respiratory exam: PRESENT: symmetrical, unlabored, wheezes - Mild end expiratory wheezing bilaterally. ABSENT: accessory muscle use, crackles, retraction, tachypnea Cardiovascular exam: PRESENT: RRR, +S1, +S2. ABSENT: tachycardia GI/Abdominal exam: PRESENT: soft. ABSENT: rebound, rigid, tenderness Extremities exam: ABSENT: pedal edema Neurological exam: PRESENT: alert, awake, oriented to person, oriented to place, oriented to time, oriented to situation Psychiatric exam: ABSENT: agitated, anxious Focused psych exam: ABSENT: pressured speech Skin exam: ABSENT: jaundice Results Laboratory Results: WBC 5.8 10^3/uL (4.0-10.5) 10/15/20 12:56 RBC 3.72 10^6/uL (3.72-5.28) 10/15/20 12:56 Hgb 10.2 g/dL (12.0-15.5) L 10/15/20 12:56 Hct 31.6 % (36.0-47.0) L 10/15/20 12:56 MCV 85 fl (80-97) 10/15/20 12:56 MCH 27.4 pg (27.0-33.4) 10/15/20 12:56 MCHC 32.3 g/dL (32.0-36.0) 10/15/20 12:56 RDW 14.5 % (11.5-14.0) H 10/15/20 12:56 Plt Count 217 10^3/uL (150-450) 10/15/20 12:56 Lymph % (Auto) 20.9 % (13-45) 10/15/20 12:56 [place] % (Auto) 9.5 % (3-13) 10/15/20 12:56 Eos % (Auto) 1.1 % (0-6) 10/15/20 12:56 Baso % (Auto) 0.5 % (0-2) 10/15/20 12:56 Absolute Neuts (auto) 3.9 10^3/uL (1.7-8.2) 10/15/20 12:56 Absolute Lymphs (auto) 1.2 10^3/uL (0.5-4.7) 10/15/20 12:56 Absolute Monos (auto) 0.6 10^3/uL (0.1-1.4) 10/15/20 12:56 Absolute Eos (auto) 0.1 10^3/uL (0.0-0.6) 10/15/20 12:56 Absolute Basos (auto) 0.0 10^3/uL (0.0-0.2) 10/15/20 12:56 Seg Neutrophils % 68.0 % (42-78) 10/15/20 12:56 Carbonic Acid 2.26 mmol/L (1.05-1.35) H 10/15/20 18:12 HCO3/H2CO3 Ratio 16:1 10/15/20 18:12 ABG pH 7.32 (7.35-7.45) L 10/15/20 18:12 ABG pCO2 75.1 mmHg (35-45) H* 10/15/20 18:12 ABG pO2 69.7 mmHg (80-100) L 10/15/20 18:12 ABG HCO3 37.7 mmol/L (20-24) H 10/15/20 18:12 ABG Total CO2 40.0 mmol/L (21-25) H 10/15/20 18:12 ABG O2 Saturation 91.8 % (94-98) L 10/15/20 18:12 ABG Base Excess 8.7 mmol/L 10/15/20 18:12 VBG pH 7.32 (7.30-7.42) 10/16/20 04:49 VBG pCO2 75.8 mmHg (35-63) H* 10/16/20 04:49 VBG HCO3 38.1 mmol/L (20-32) H 10/16/20 04:49 VBG Base Excess 9.7 mmol/L 10/16/20 04:49 FiO2 3L 10/15/20 18:12 Sodium 130.2 mmol/L (137-145) L 10/15/20 12:56 Potassium 4.1 mmol/L (3.6-5.0) 10/15/20 12:56 Chloride 85 mmol/L (98-107) L 10/15/20 12:56 Carbon Dioxide 39 mmol/L (22-30) H 10/15/20 12:56 Anion Gap 6 (5-19) 10/15/20 12:56 BUN 10 mg/dL (7-20) 10/15/20 12:56 Creatinine 0.83 mg/dL (0.52-1.25) 10/15/20 12:56 Est GFR ( Amer) > 60 (>60) 10/15/20 12:56 Est GFR (MDRD) Non-Af > 60 (>60) 10/15/20 12:56 Glucose 87 mg/dL (75-110) 10/15/20 12:56 Calcium 9.2 mg/dL (8.4-10.2) 10/15/20 12:56 Total Bilirubin 0.5 mg/dL (0.2-1.3) 10/15/20 12:56 Direct Bilirubin 0.2 mg/dL (0.0-0.4) 10/15/20 12:56 Neonat Total Bilirubin Not Reportable 10/15/20 12:56 Neonat Direct Bilirubin Not Reportable 10/15/20 12:56 Neonat Indirect Bili Not Reportable 10/15/20 12:56 AST 21 U/L (14-36) 10/15/20 12:56 ALT 11 U/L (<35) 10/15/20 12:56 Alkaline Phosphatase 86 U/L (38-126) 10/15/20 12:56 Troponin I < 0.012 ng/mL 10/15/20 12:56 NT-Pro-B Natriuret Pep 113 pg/mL (<125) 10/15/20 12:56 Total Protein 5.7 g/dL (6.3-8.2) L 10/15/20 12:56 Albumin 3.5 g/dL (3.5-5.0) 10/15/20 12:56 Urine Color COLORLESS 10/15/20 13:20 Urine Appearance CLEAR 10/15/20 13:20 Urine pH 8.0 (5.0-9.0) 10/15/20 13:20 Ur Specific [place] 1.003 10/15/20 13:20 Urine Protein NEGATIVE mg/dL (NEGATIVE) 10/15/20 13:20 Urine Glucose (UA) NEGATIVE mg/dL (NEGATIVE) 10/15/20 13:20 Urine Ketones NEGATIVE mg/dL (NEGATIVE) 10/15/20 13:20 Urine Blood NEGATIVE (NEGATIVE) 10/15/20 13:20 Urine Nitrite NEGATIVE (NEGATIVE) 10/15/20 13:20 Urine Bilirubin NEGATIVE (NEGATIVE) 10/15/20 13:20 Urine Urobilinogen NEGATIVE mg/dL (<2.0) 10/15/20 13:20 Ur Leukocyte Esterase NEGATIVE (NEGATIVE) 10/15/20 13:20 Squamous Epi Cells Auto <1 /HPF 10/15/20 13:20 Urine Mucus (Auto) RARE /LPF 10/15/20 13:20 Urine Ascorbic Acid NEGATIVE (NEGATIVE) 10/15/20 13:20 COVID-19 Source Cancelled 10/15/20 15:36 COVID-19 (ARCADIO) Cancelled 10/15/20 15:36 Influenza A (RT-PCR) NEGATIVE (NEGATIVE) 10/15/20 15:36 Influenza B (RT-PCR) NEGATIVE (NEGATIVE) 10/15/20 15:36 RSV (RT-PCR) NEGATIVE (NEGATIVE) 10/15/20 15:36 SARS-CoV-2 Rap RNA(RT-PCR) NEGATIVE (NEGATIVE) 10/15/20 15:36 10/15/20 10/15/20 12:56 12:56 Troponin I < 0.012 NT-Pro-B Natriuret Pep 113 Impressions: Chest X-Ray 10/15/20 13:07 IMPRESSION: Stable radiographic appearance of the chest demonstrating minimally increased interstitial markings at the right lung base. Stroke Is this a Stroke Patient?: No Acute Heart Failure Is this a Heart Failure Patient?: No
[2020-10-16 13:11] VITALS: BP 165/67
[2020-10-16] MEDS ORDERED: AZITHROMYCIN 250 MG TABLET PO SCH (18:00)
== END 2020-10-16 12:51 | disposition home or self-care (01) ==
LOC: ER 12:48 → EH 20:57 → 4N 23:48
PROVIDERS: ADMIT Internal Medicine; ATTEND Internal Medicine
DX: J44.1 Chronic obstructive pulmonary disease with (acute) exacerbation (principal); J96.12 Chronic respiratory failure with hypercapnia; I10 Essential (primary) hypertension; F17.210 Nicotine dependence, cigarettes, uncomplicated; F31.9 Bipolar disorder, unspecified; E87.1 Hypo-osmolality and hyponatremia; Z99.81 Dependence on supplemental oxygen; R05 Cough; R42 Dizziness and giddiness; Z20.828 Contact with and (suspected) exposure to other viral communicable diseases; Z79.899 Other long term (current) drug therapy
CPT/HCPCS: 93005; 94640 ×2; 99285; 96361; 96374; 36415 ×2; 87040; 82803 ×2; 85025; 0241U ×4; 80053; 81001; 84484; 83880; 71045; 90686; 93010; G0378 ×2; G0008; A9270 ×12; J1885 ×2; J1650 ×2; J3490; J7030; C9803; 87635; 90471; J7512

== ENCOUNTER 2020-11-04 15:44 | Inpatient (IN) | payer OTHER, MEDICARE ==
--- NOTE | 2020-11-04 16:52 | RADIOLOGY REPORT (SQ) ---
EXAM DESCRIPTION: HIP RIGHT AP/LATERAL IMAGES COMPLETED DATE/TIME: 11/04/2020 4:36 pm REASON FOR STUDY: fall COMPARISON: None. NUMBER OF VIEWS: Two views. TECHNIQUE: Or an AP view of the pelvis and AP and lateral views of the right hip were obtained. LIMITATIONS: None. FINDINGS: MINERALIZATION: Decreased. RIGHT HIP: Acute displaced subcapital neck fracture. There is no associated dislocation of the femor oacetabular joint. LEFT HIP: No fracture or dislocation. PUBIS AND ISCHIUM: The ilioischial and iliopectineal lines are intact. There is no diastasis of the pubic symphysis. PELVIS: No fracture. SACRUM: The sacrum is obscured by overlying bowel. LOWER LUMBAR SPINE: No acute abnormality. SOFT TISSUES: No acute abnormality. OTHER: No other findings. IMPRESSION: Acute displaced subcapital neck fracture of the right femur. There is no associated dis location of the femoroacetabular joint. TECHNICAL DOCUMENTATION: JOB ID: [id number] 2010 [employer]- All Rights Reserved Reading location - IP/workstation name: [email or web address]
[2020-11-04] MEDS: HYDROMORPHONE HCL INJ/PF 2 MG/ML AMPULE IV PRN ×3 (17:03→22:30)
[2020-11-04 17:36] LABS: ABSOLUTE EOSINOPHILS # (AUTO) 0.1 10^3/uL (0.0-0.6); ABSOLUTE MONOCYTES (AUTO) 0.7 10^3/uL (0.1-1.4); ABSOLUTE NEUT (AUTO) 9.9 10^3/uL (1.7-8.2); BASOPHILS % (AUTO) 0.2 % (0-2); EOSINOPHILS % (AUTO) 0.5 % (0-6); HEMATOCRIT 34.9 % (36.0-47.0); HEMOGLOBIN 11.2 g/dL (12.0-15.5); LYMPHOCYTES % (AUTO) 8.7 % (13-45); MEAN CORPUSCULAR HEMOGLOBIN 26.6 pg (27.0-33.4); MEAN CORPUSCULAR HGB CONC 32.1 g/dL (32.0-36.0); MEAN CORPUSCULAR VOLUME 83 fl (80-97); MONOCYTES % (AUTO) 5.7 % (3-13); PLATELET COUNT 218 10^3/uL (150-450); RED BLOOD COUNT 4.21 10^6/uL (3.72-5.28); RED CELL DISTRIBUTION WIDTH 14.7 % (11.5-14.0); SEGMENTED NEUTROPHILS % (AUTO) 84.9 % (42-78); TOTAL CELLS COUNTED % (AUTO) 100 %; WHITE BLOOD COUNT 11.7 10^3/uL (4.0-10.5)
--- NOTE | 2020-11-04 17:47 | ER Document Report ---
ED Fall - General Chief Complaint: Hip Pain Stated Complaint: FALL/HIP PAIN TRAVEL OUTSIDE OF THE [place] IN LAST 30 DAYS: No - HPI Notes: Chief Complaint: Fall, right hip pain Historian: History obtained from patient HPI: This is a 55-year-old female presents to the ER c/o right hip pain after a fall on Wednesday evening. She somehow got her foot caught in the leg of her pajama pants and fell backwards onto the ground. she has not been ambulatory since the fall and remained at home to see if it would get better on its own. Pt is in hospice- [facility]- due to advanced COPD and is on 3L home O2 at all times. PT denies any other injuries. She took her home prescription pain medications w/o relief. She denies fever ,chills, n/v, abdom pain, cp, WALTER, back pain, or neck pain. ROS: Constitutional: no fevers. HEENT: no WALTER, sore throat, or vision changes. CV: no chest pain or palpitations. Resp: basline sob, on 3L NC GI: no abdominal pain, or n/v/d. : no dysuria, hematuria, or incont. MSK: right hip pain Skin: no rashes or itching. Neuro: no seizures, weakness, numbness, or confusion. Hematological: no ecchymosis or easy bleeding. Endocrine: no polyuria/polydipsia, no heat/cold intolerance. Psych: no SI/HI, AH/VH or memory loss. PMHx: Reviewed and agree as charted by RN. PSHx: Reviewed and agree as charted by RN. SOCHx: Reviewed and agree as charted by RN. FHX: No significant familial comorbid conditions directly related to patient complaint Current Medications: Reviewed and agree with the patient medications as charted by the RN. Allergies: Reviewed and agree with the listed allergies as charted by the RN Physical Exam: Vitals: Reviewed in chart as documented by RN. General: Alert and in NAD. older than stated age Head: Normocephalic; atraumatic Eyes: PERRLA, Conjunctivae clear sclerae non-icteric bilat ENT: no soft palate swelling or uvular deviation Neck: trachea midline, no unilateral swelling/tenderness/lymphadenopathy CV: RRR, no M/R/G; symmetric distal pulses Resp: respirations even and unlabored, CTA bilat. 3L O2 via NC GI: abd soft and nondistended. NTTP. normal BS. no masses/HSM. no CVAT bilat MSK: RLE- shortened and externally rotated. Tender to right hip with palpable deformity. Limited range of motion due to pain. Distal upper leg nontender without deformity. Lower leg nontender to palpation, no swelling. Pedal pulse 1+. Cap refill less than 3 seconds. Sensation intact distally. range of Motion intact to foot and ankle. Skin: warm, moist, good turgor. no rash/lesions Neuro: Alert and oriented X 4. following CN 2-12 intact. no unilateral weakness/numbness Psych: No SI/HI or AH/VH. ED Results: Medical Decision-Making: Medical Decision-making/Differential Diagnosis: Consider various etiologies including but not limited to skin/soft tissue structure injury, MSK injury, strain/sprain, fracture, dislocation, bursitis, tendonitis, contusion, ect Plan- hip xr in triage. I reviewed imaging which noted obvious displaced right hip fracture, pending official radiology read. I went ahead and ordered preop clearance labs, EKG, chest x-ray, pain control, saline lock. Official radiology read of hip x-ray notes acutely displaced subcapital femoral neck fracture. I consulted orthopedicsDrToya Gilliland-he recommends hospitalist admission due to patient's history of COPD/hospice, and orthopedics will consult for expected surgical repair. Dr. Gilliland would like preop clearance work-up as well as a Covid test. He also says patient may have a diet tonight and does not need to be n.p.o. as she will not be having surgery tonight. I will consult hospitalist for admission. spoke w/ hospitalist- Dr Tolbert requests I order a troponin. They are wanting clarification regarding pts hospice diagnosis and prognosis due to the substantial risks associated w/ anesthesia and her advanced COPD. I called [facility]- Radha Herrera- who is manager intranet twice and left a voicemail to call back. Pts gave me her contact information as the RN who was with the patient prior to coming to the ER. Pts also states that the reason for hospice is due to her COPD. Trop elevated 0.28. This order was placed at the request of the hospitalist. I contacted the hospitalist and notified them. There is no further intervention at this time regarding the elevated troponin. This was used more as a perioperative marker and not to evaluated for acute ACS. I contacted [facility] hosp[facility] and spoke with the on-call RNDulce. She states the patient was placed on hospice just 1 week ago, starting October 28. Her primary diagnosis is chronic emphysema, secondary diagnoses are chronic hypercapnic respiratory failure, malnourishment, CHF. Updated night hospitalist who agreed to admit the pti. This course of action was discussed with the patient and/or family. They were amenable to this, verbalized understanding, and were without further questions. Diagnosis: acute, displaced subcapital femoral neck fracture, right. Fall. COPD Condition: stable Disposition: admit - Related data Allergies/Adverse Reactions: No Known Allergies Allergy (Verified 09/07/20 02:07) Past Medical History - Social History Smoking Status: Former Smoker Chew tobacco use (# tins/day): No Frequency of alcohol use: None Drug Abuse: None Family History: Reviewed & Not Pertinent, COPD, Hypertension. denies: CAD, CVA, DM, Malignancy - Past Medical History Cardiac Medical History: Reports: Hx Congestive Heart Failure, Hx Hypertension Denies: Hx Atrial Fibrillation, Hx Coronary Artery Disease, Hx DVT, Hx Heart Attack, Hx Hypercholesterolemia, Hx Pulmonary Embolism Pulmonary Medical History: Reports: Hx Asthma, Hx Bronchitis, Hx COPD, Hx Pneumonia, Hx Respiratory Failure - Chronic respiratory failure with hypoxia Neurological Medical History: Reports: Hx Seizures - Single seizure in the remote past. Denies: Hx Cerebrovascular Accident Endocrine Medical History: Denies: Hx Diabetes Mellitus Type 1, Hx Diabetes Mellitus Type 2, Hx Hyperthyroidism, Hx Hypothyroidism Renal/ Medical History: Reports: Hx Kidney Stones GI Medical History: Denies: Hx Cirrhosis, Hx Crohn's Disease, Hx Gastroesophageal Reflux Disease, Hx Hepatitis, Hx Ulcerative Colitis Musculoskeletal Medical History: Reports Hx Arthritis, Denies Hx Gout Skin Medical History: Denies Hx Eczema, Denies Hx Psoriasis Psychiatric Medical History: Reports: Hx Bipolar Disorder, Hx Depression Infectious Medical History: Reports: Hx MRSA. Denies: Hx Hepatitis Past Surgical History: Reports: Hx Section, Hx Orthopedic Surgery - right knee. Denies: Hx Hysterectomy, Hx Pacemaker - Immunizations Hx Diphtheria, Pertussis, Tetanus Vaccination: No Hx Pneumococcal Vaccination: 01/12/13 Physical Exam - Vital signs Vitals: Temp 98.2 F 11/04/20 15:50 Course - Vital Signs Vital signs: Temp Pulse Resp BP Pulse Ox 98.3 F 100 124/76 100 11/04/20 19:10 11/04/20 19:10 11/04/20 19:10 11/04/20 19:10 - Laboratory Results Result Diagrams: 11/04/20 17:05 11/04/20 17:05 Laboratory Results Interpreted: 11/04/20 11/04/20 17:05 17:05 WBC 11.7 H Hgb 11.2 L Hct 34.9 L MCH 26.6 L RDW 14.7 H Lymph % (Auto) 8.7 L Absolute Neuts (auto) 9.9 H Seg Neutrophils % 84.9 H Sodium 131.7 L Chloride 94 L Carbon Dioxide 36 H Anion Gap 2 L Est GFR (MDRD) Non-Af 57 L Glucose 126 H Critical Laboratory Results Reviewed: Yes - attending ER doc and hospitalist aware Attending or Supervising Physician who Reviewed Labs: CARLOS ESTRADA JR - Radiology Results Critical Radiology Results Reviewed: No Critical Results - right hip fracture Discharge - Discharge Clinical Impression: Closed right hip fracture Qualifiers: Encounter type: initial encounter Qualified Code(s): S72.001A - Fracture of unspecified part of neck of right femur, initial encounter for closed fracture Chronic obstructive pulmonary disease Qualifiers: COPD type: unspecified COPD Qualified Code(s): J44.9 - Chronic obstructive pulmonary disease, unspecified Condition: Stable Disposition: ADMITTED INPATIENT Admitting Provider: Didi (Hospitalist) Unit Admitted: Medical Floor
[2020-11-04 17:52] LABS: BLOOD UREA NITROGEN 19 mg/dL (7-20); CALCIUM 8.4 mg/dL (8.4-10.2); GLUCOSE 126 mg/dL (75-110); POTASSIUM 4.7 mmol/L (3.6-5.0)
--- NOTE | 2020-11-04 17:52 | RADIOLOGY REPORT (SQ) ---
EXAM DESCRIPTION: CHEST SINGLE VIEW IMAGES COMPLETED DATE/TIME: 11/04/2020 4:58 pm REASON FOR STUDY: surgical clearance COMPARISON: 10/15/2020 EXAM PARAMETERS: NUMBER OF VIEWS: One view. TECHNIQUE: Single frontal radiographic view of the chest acquired. RADIATION DOSE: NA LIMITATIONS: None. FINDINGS: LUNGS AND PLEURA: No opacities, masses or pneumothorax. No pleural effusion. MEDIASTINUM AND HILAR STRUCTURES: No masses. Contour normal. HEART AND VASCULAR STRUCTURES: Heart normal in size. Normal vasculature. BONES: No acute findings. HARDWARE: None in the chest. OTHER: No other significant finding. IMPRESSION: NO ACUTE RADIOGRAPHIC FINDING IN THE CHEST. TECHNICAL DOCUMENTATION: JOB ID: [id number] 2010 [employer]- All Rights Reserved Reading location - IP/workstation name: [email or web address]
[2020-11-04 18:03] LABS: ANION GAP 2 (5-19); CARBON DIOXIDE 36 mmol/L (22-30); CHLORIDE 94 mmol/L (98-107)
--- NOTE | 2020-11-04 19:08 | EKG REPORT ---
SEVERITY:- ABNORMAL ECG - SINUS RHYTHM INCOMPLETE RIGHT BUNDLE BRANCH BLOCK : Confirmed by: Sarika Tafoya MD 04-Nov-2020 19:07:33
[2020-11-04] MEDS ORDERED: ACETAMINOPHEN 650 MG SUPP.RECT PR PRN (20:37)
[2020-11-04] MEDS ORDERED: ONDANSETRON HCL INJ/PF 4 MG/2 ML SDV IV PRN (20:37)
[2020-11-04] MEDS ORDERED: ASPIRIN 81 MG TABLET, CHEWABLE PO ONE (20:49)
[2020-11-04] MEDS ORDERED: IPRATROPIUM/ALBUTEROL 0.5-2.5 MG/3 ML AMPUL NEB PRN (20:52)
[2020-11-04] MEDS ORDERED: ALBUTEROL SULFATE HFA (90 MCG/PUFF) 8 GM MDI IH PRN (20:54)
[2020-11-04] MEDS: ENOXAPARIN SODIUM INJ 40 MG/0.4 ML DISP.SYRIN SUBCUT SCH (20:55)
--- NOTE | 2020-11-04 21:12 | PDOC H&P ---
History of Present Illness Admission Date/PCP: 11/04/20 19:47 DASHA JAMES Patient complains of: Fell, right hip pain. History of Present Illness: JULIO BACA is a 55 year old female The patient is ambulatory. 2 days ago she fell at home. She fell on her right hip. Ever since then she is unable to walk. Because of the persistent severe right hip area pain and inability to walk she came to the emergency department. She was found to have a displaced right subcapital femoral neck fracture. She does not have any other complaint except the right hip area pain which actually controlled with intravenous hydromorphone. To me she denies having any chest pain or shortness of breath earlier she mentions some chest pain and a troponin was run which is slightly elevated. Clinically the patient does not appear to have any kind of ongoing cardiac ischemia. She has chronic shortness of breath and on chronic oxygen,she did not appear to be in any respiratory distress. She had no arrhythmia. Her blood pressure is stable. Patient has advanced COPD and chronic hypoxic respiratory failure on 24/7 oxygen 3 L/min via nasal cannula. Since she quit smoking about a month ago her respiratory status is better. She has no increased wheezing, coughing or other acute respiratory symptoms. Patient enrolled in home hospice about 1-1/2-week ago. She would like to be actively treated at this point and she would like to be full code. She is pleasant and cooperative and has good understanding of her problems. She never had coronary artery disease, never had any cardiac work-up. She was told having congestive heart failure and taking 20 mg furosemide daily. Does not know more details about this problem. Past Medical History Cardiac Medical History: Reports: Congestive Heart Failure - No details available., Hypertension Denies: Atrial Fibrillation, Coronary Artery Disease, DVT, Myocardial Infarction, Hyperlipidema, Pulmonary Embolism Pulmonary Medical History: Reports: Chronic Obstructive Pulmonary Disease (COPD) - With chronic hypoxic respiratory failure on 3 L/min nasal oxygen, Pneumonia, Respiratory Failure - Chronic respiratory failure with hypoxia EENT Medical History: Reports: None Neurological Medical History: Reports: Seizures - Single seizure in the remote past Endocrine Medical History: Reports: None, Diabetes Mellitus Type 1 Renal/ Medical History: Reports: None Malignancy Medical History: Reports: None GI Medical History: Reports: Other - History of esophageal stricture requiring dilatation. Musculoskeltal Medical History: Reports: Arthritis Denies: Gout Skin Medical History: Reports: None Psychiatric Medical History: Reports: Bipolar Disorder, Depression Traumatic Medical History: Reports: None Hematology: Reports: None Infectious Medical History: Reports: Methicillin-Resistant Staph Aureus Past Surgical History Past Surgical History: Reports: Section, Orthopedic Surgery - right knee Denies: Hysterectomy, Pacemaker Social History Information Source: Patient Lives with: Family Smoking Status: Former Smoker - Quit smoking about a month ago Electronic Cigarette use?: No Frequency of Alcohol Use: None Hx Recreational Drug Use: Yes Drugs: Marijuana Hx Prescription Drug Abuse: No Family History Family History: COPD, Hypertension. denies: CAD, CVA, DM, Malignancy Parental Family History Reviewed: Yes Children Family History Reviewed: Yes Sibling(s) Family History Reviewed.: Yes Medication/Allergy Home Medications: Bupropion HCl [Wellbutrin Xl 300mg 24hr Tablet] 300 mg PO QAM 08/22/19 Citalopram Hydrobromide [Celexa 40 mg Tablet] 40 mg PO DAILY 08/22/19 Risperidone [Risperdal] 6 mg PO DAILY 08/22/19 Furosemide [Lasix 20 mg Tablet] 20 mg PO QAM 01/13/20 Amlodipine Besylate [Norvasc 5 mg Tablet] 5 mg PO DAILY 10/16/20 Budesonide [Pulmicort Neb 0.5 mg/2 ml Ampul] 0.5 mg NEB RTQ12 10/16/20 Buspirone HCl 7.5 mg PO BID 10/16/20 Perforomist 1 vial NEB RTBID 10/16/20 Albuterol Sulfate [Proair HFA Inhalation Aerosol 8.5 gm MDI] 2 puff IH Q4HP PRN 11/04/20 Ipratropium/Albuterol Sulfate [Duoneb 3 ml Ampul] 3 ml NEB RTQ6HP PRN 11/04/20 Lisinopril [Zestril] 40 mg PO DAILY 11/04/20 Lorazepam [Ativan 0.5 mg Tablet] 0.5 mg PO Q6HP PRN 11/04/20 Morphine Sulfate 0.25 ml PO Q4HP PRN 11/04/20 Ondansetron [Zofran Odt 4 mg Tablet] 4 mg PO Q8HP PRN 11/04/20 Prednisone [Deltasone 20 mg Tablet] 10 mg PO DAILY 11/04/20 Allergies/Adverse Reactions: No Known Allergies Allergy (Verified 09/07/20 02:07) Review of Systems Constitutional: PRESENT: weakness Eyes: ABSENT: visual disturbances Ears: ABSENT: hearing changes Cardiovascular: ABSENT: chest pain, dyspnea on exertion, edema, orthropnea, palpitations Respiratory: PRESENT: cough - Chronic cough. No sputum production. Chronic shortness of breath Gastrointestinal: ABSENT: abdominal pain, constipation, diarrhea, hematemesis, hematochezia, nausea, vomiting Musculoskeletal: PRESENT: other - Severe right hip area pain since the fall 2 days ago. Neurological: ABSENT: abnormal gait, abnormal speech, confusion, dizziness, focal weakness, syncope Psychiatric: PRESENT: depression - History of depression. Her mood seems to be normal. Physical Exam Vital Signs: Temp Pulse Resp BP Pulse Ox 98.3 F 100 124/76 100 11/04/20 19:10 11/04/20 19:10 11/04/20 19:10 11/04/20 19:10 Intake & Output 11/03/20 11/04/20 11/05/20 06:59 06:59 06:59 Weight 65 kg General appearance: PRESENT: no acute distress Head exam: PRESENT: atraumatic Eye exam: PRESENT: conjunctiva pink, EOMI, PERRLA. ABSENT: scleral icterus Ear exam: PRESENT: normal external ear exam Mouth exam: PRESENT: moist, tongue midline Neck exam: ABSENT: carotid bruit, JVD, lymphadenopathy, thyromegaly Respiratory exam: PRESENT: rhonchi, wheezes - Scattered wheezes.. ABSENT: stridor Cardiovascular exam: PRESENT: RRR. ABSENT: diastolic murmur, rubs, systolic murmur Pulses: PRESENT: normal femoral pulses, other - Weak dorsal pedal arteries with no sign of limb ischemia. Vascular exam: PRESENT: normal capillary refill GI/Abdominal exam: PRESENT: normal bowel sounds, soft. ABSENT: distended, guarding, mass, organolmegaly, rebound, tenderness Rectal exam: PRESENT: deferred Extremities exam: PRESENT: other - Right lower extremity is rotated and shortened. Musculoskeletal exam: PRESENT: ambulatory - She was fully ambulatory prior to the fall. Neurological exam: PRESENT: alert, awake, oriented to person, oriented to place, oriented to time, oriented to situation, CN II-XII grossly intact. ABSENT: motor sensory deficit Psychiatric exam: PRESENT: normal mood Skin exam: PRESENT: dry, intact, warm. ABSENT: cyanosis, rash Results Laboratory Results: 11/04/20 17:05 11/04/20 17:05 11/04/20 11/04/20 17:05 17:05 WBC 11.7 H RBC 4.21 Hgb 11.2 L Hct 34.9 L MCV 83 MCH 26.6 L MCHC 32.1 RDW 14.7 H Plt Count 218 Seg Neutrophils % 84.9 H Sodium 131.7 L Potassium 4.7 Chloride 94 L Carbon Dioxide 36 H Anion Gap 2 L BUN 19 Creatinine 1.01 Est GFR ( Amer) > 60 Glucose 126 H Calcium 8.4 11/04/20 17:05 Troponin I 0.287 EKG Comments: Sinus rhythm with incomplete right bundle branch block. Impressions: Hip/Pelvis X-Ray 11/04/20 00:00 IMPRESSION: Acute displaced subcapital neck fracture of the right femur. There is no associated dislocation of the femoroacetabular joint. Chest X-Ray 11/04/20 16:49 IMPRESSION: NO ACUTE RADIOGRAPHIC FINDING IN THE CHEST. Assessment and Plan - Diagnosis (1) Closed right hip fracture Qualifiers: Encounter type: initial encounter Qualified Code(s): S72.001A - Fracture of unspecified part of neck of right femur, initial encounter for closed fracture Is this a current diagnosis for this admission?: Yes Plan: Patient will need surgery. Orthopedic consultation was requested. Because of the slight elevated troponin the patient may need cardiology evaluation, repeat troponin, telemetry monitoring, echocardiogram. Hopefully surgery can be done on Wednesday, 06 November. I started DVT prophylaxis with Lovenox tonight, this should be discontinued 24 hours prior to surgery. She is on mechanical prophylaxis as well. (2) Elevated troponin Is this a current diagnosis for this admission?: Yes Plan: The patient has mildly elevated troponin but she is chest pain-free and EKG is not suggestive of ongoing cardiac ischemia. Total CK is pending, in case the CK significantly elevated the troponin is probably related to skeletal muscle contusion. If the CK is not significantly elevated the patient probably has some troponin leak. I placed her on nuclear monitoring technician. Repeat troponin. I ordered her aspirin. Echocardiogram. Cardiology consultation was requested. The patient has some questionable history of congestive heart failure. I do not find any previous documentation of ejection fraction. At present the patient does not appear to be any heart failure. I am going to hold her furosemide. (3) Congestive heart failure Qualifiers: Heart failure type: unspecified Heart failure chronicity: chronic Qualified Code(s): I50.9 - Heart failure, unspecified Is this a current diagnosis for this admission?: Yes Plan: The patient carries a diagnosis of congestive heart failure. I do not find echocardiogram reports. I do not find any specifics about her heart failure the medical record. The patient seems to be fully compensated. I am going to hold furosemide. Echocardiogram was ordered. (4) Chronic respiratory failure with hypoxia Is this a current diagnosis for this admission?: Yes Plan: Continue oxygen therapy. Her respiratory status seems to be stable, at baseline. (5) COPD (chronic obstructive pulmonary disease) Qualifiers: COPD type: emphysema Emphysema type: unspecified Qualified Code(s): J43.9 - Emphysema, unspecified Is this a current diagnosis for this admission?: Yes Plan: She has advanced COPD. No sign of COPD exacerbation. She does have some wheezing but it is chronic. She quit smoking about a month ago, since then she is feeling better. Continue bronchodilators. (6) Hypertension Qualifiers: Hypertension type: essential hypertension Qualified Code(s): I10 - Essential (primary) hypertension Is this a current diagnosis for this admission?: Yes Plan: Continue her usual blood pressure medications. (7) Bipolar 1 disorder Is this a current diagnosis for this admission?: Yes Plan: I resumed her antidepressants. She is not quite sure about rest of her psychiatric medications. Tomorrow medication list will be updated in the morning. - Plan Summary Summary: Patient was admitted with right hip fracture requiring surgery. She was under home hospice care because of her advanced COPD/chronic hypoxic respiratory failure. The patient is fully alert and oriented and she is able to understand her problems. She would like to be full code and she would like to be operated on. The patient is chest pain-free and has no EKG sign of ongoing cardiac ischemia. Earlier she mentioned something about chest pain and a troponin was ordered. Troponin is borderline elevated. Exact etiology for the elevated troponin is unclear at this point. I do not see any sign of ongoing cardiac ischemia. The patient is going to have a cardiac evaluation prior to surgery. Cardiology consultation was requested. Hopefully the patient is going to be ready for surgery on Wednesday, 06 November. I did the best with the medication reconciliation but the patient did not have the full list. Medication reconciliation is going to be completed in the morning. - Time Time Spent with patient: 35 or more minutes Medications reviewed and adjusted accordingly: Yes Anticipated Discharge Disposition: Custodial Facility Anticipated Discharge Timeframe: 5 days - Inpatient Certification Based on my medical assessment, after consideration of the patient's comorbidities, presenting symptoms, or acuity I expect that the services needed warrant INPATIENT care.: Yes I certify that my determination is in accordance with my understanding of Medicare's requirements for reasonable and necessary INPATIENT services [42 CFR 412.3e].: Yes Medical Necessity: Failure to Improve With Outpatient Therapy, Need for Surgery
[2020-11-04] MEDS: BUPROPION HCL 75 MG TABLET PO SCH (22:30)
[2020-11-05] MEDS: HYDROMORPHONE HCL INJ/PF 2 MG/ML AMPULE IV PRN ×3 (02:36→10:07)
[2020-11-05 05:29] LABS: ABSOLUTE BASOPHILS # (AUTO) 0.1 10^3/uL (0.0-0.2); ABSOLUTE EOSINOPHILS # (AUTO) 0.2 10^3/uL (0.0-0.6); ABSOLUTE LYMPHOCYTES (AUTO) 2.1 10^3/uL (0.5-4.7); ABSOLUTE MONOCYTES (AUTO) 0.7 10^3/uL (0.1-1.4); ABSOLUTE NEUT (AUTO) 9.1 10^3/uL (1.7-8.2); BASOPHILS % (AUTO) 0.7 % (0-2); EOSINOPHILS % (AUTO) 1.9 % (0-6); HEMATOCRIT 34.9 % (36.0-47.0); HEMOGLOBIN 11.2 g/dL (12.0-15.5); LYMPHOCYTES % (AUTO) 17.2 % (13-45); MEAN CORPUSCULAR HEMOGLOBIN 26.8 pg (27.0-33.4); MEAN CORPUSCULAR VOLUME 84 fl (80-97); MONOCYTES % (AUTO) 5.9 % (3-13); PLATELET COUNT 213 10^3/uL (150-450); RED BLOOD COUNT 4.17 10^6/uL (3.72-5.28); RED CELL DISTRIBUTION WIDTH 14.8 % (11.5-14.0); SEGMENTED NEUTROPHILS % (AUTO) 74.3 % (42-78); TOTAL CELLS COUNTED % (AUTO) 100 %; WHITE BLOOD COUNT 12.2 10^3/uL (4.0-10.5)
[2020-11-05 05:47] LABS: ALBUMIN 2.8 g/dL (3.5-5.0); ALKALINE PHOSPHATASE 68 U/L (38-126); ASPARTATE AMINO TRANSFERASE 25 U/L (14-36); BILIRUBIN,DIRECT 0.2 mg/dL (0.0-0.4); BILIRUBIN,TOTAL 0.4 mg/dL (0.2-1.3); BLOOD UREA NITROGEN 19 mg/dL (7-20); CALCIUM 8.6 mg/dL (8.4-10.2); CHOLESTEROL 182.15 mg/dL (0-200); CREATINE KINASE 58 U/L (30-135); GLUCOSE 100 mg/dL (75-110); POTASSIUM 4.4 mmol/L (3.6-5.0); TRIGLYCERIDES 198 mg/dL (<150)
[2020-11-05 05:53] LABS: CARBON DIOXIDE 36 mmol/L (22-30); CHLORIDE 94 mmol/L (98-107)
[2020-11-05 05:56] LABS: VLDL CHOLESTEROL 39.6 mg/dL (10-31)
[2020-11-05 05:57] LABS: ANION GAP 3 (5-19)
[2020-11-05 05:58] LABS: DIRECT LDL 79 mg/dL (<100)
--- NOTE | 2020-11-05 07:38 | PDOC CONSULTATION ---
Consultation Consult Date: 11/05/20 Provider Consulted: MICKEY PUENTE History of Present Illness Admission Date/PCP: 11/04/20 19:47 DASHA JAMES Patient complains of: Right hip pain History of Present Illness: JULIO BACA is a 55 year old female who sustained a fall on Wednesday onto her right hip when she tripped and fell. Patient was not ambulatory but was hoping it was just a contusion until she continued to have discomfort and inability to ambulate. She subsequently presented to emergency room where x- rays demonstrated a fracture. Patient states pain is controlled with Dilaudid but worse with any attempted motion. Denies chest pain. Does have chronic shortness of breath due to COPD which requires chronic oxygen. Current pain 3/5. Denies numbness. Past Medical History Cardiac Medical History: Reports: Congestive Heart Failure - No details available., Hypertension Denies: Atrial Fibrillation, Coronary Artery Disease, DVT, Myocardial Infarction, Hyperlipidema, Pulmonary Embolism Pulmonary Medical History: Reports: Asthma, Bronchitis, Chronic Obstructive Pulmonary Disease (COPD) - With chronic hypoxic respiratory failure on 3 L/min nasal oxygen, Pneumonia, Respiratory Failure - Chronic respiratory failure with hypoxia EENT Medical History: Reports: None Neurological Medical History: Reports: Seizures - Single seizure in the remote past Endocrine Medical History: Reports: None, Diabetes Mellitus Type 1 Denies: Diabetes Mellitus Type 2, Hyperthyroidism, Hypothyroidism Renal/ Medical History: Reports: None Malignancy Medical History: Reports: None GI Medical History: Reports: None, Other - History of esophageal stricture requiring dilatation. Denies: Cirrhosis, Crohn's Disease, Gastroesophageal Reflux Disease, Hepatitis, Ulcerative Colitis Musculoskeltal Medical History: Reports: Arthritis Denies: Gout Skin Medical History: Reports: None Denies: Eczema, Psoriasis Psychiatric Medical History: Reports: Bipolar Disorder, Depression Traumatic Medical History: Reports: None Hematology: Reports: None Denies: Anemia, Bleeding Tendencies Infectious Medical History: Reports: Methicillin-Resistant Staph Aureus Past Surgical History Past Surgical History: Reports: Section, Orthopedic Surgery - right knee Denies: Hysterectomy, Pacemaker Social History Lives with: Family Smoking Status: Unknown if Ever Smoked Electronic Cigarette use?: No Frequency of Alcohol Use: None Hx Recreational Drug Use: Yes Drugs: Marijuana Hx Prescription Drug Abuse: No Family History Family History: COPD, Hypertension, Other - Patient denies Anesthesia risks. denies: CAD, CVA, DM, Malignancy Parental Family History Reviewed: No Children Family History Reviewed: No Sibling(s) Family History Reviewed.: No Medication/Allergy Home Medications: Bupropion HCl [Wellbutrin Xl 300mg 24hr Tablet] 300 mg PO QAM 08/22/19 Citalopram Hydrobromide [Celexa 40 mg Tablet] 40 mg PO DAILY 08/22/19 Risperidone [Risperdal] 6 mg PO DAILY 08/22/19 Furosemide [Lasix 20 mg Tablet] 20 mg PO QAM 01/13/20 Amlodipine Besylate [Norvasc 5 mg Tablet] 5 mg PO DAILY 10/16/20 Budesonide [Pulmicort Neb 0.5 mg/2 ml Ampul] 0.5 mg NEB RTQ12 10/16/20 Buspirone HCl 7.5 mg PO BID 10/16/20 Perforomist 1 vial NEB RTBID 10/16/20 Albuterol Sulfate [Proair HFA Inhalation Aerosol 8.5 gm MDI] 2 puff IH Q4HP PRN 11/04/20 Ipratropium/Albuterol Sulfate [Duoneb 3 ml Ampul] 3 ml NEB RTQ6HP PRN 11/04/20 Lisinopril [Zestril] 40 mg PO DAILY 11/04/20 Lorazepam [Ativan 0.5 mg Tablet] 0.5 mg PO Q6HP PRN 11/04/20 Morphine Sulfate 0.25 ml PO Q4HP PRN 11/04/20 Ondansetron [Zofran Odt 4 mg Tablet] 4 mg PO Q8HP PRN 11/04/20 Prednisone [Deltasone 20 mg Tablet] 10 mg PO DAILY 11/04/20 Allergies/Adverse Reactions: No Known Allergies Allergy (Verified 09/07/20 02:07) Review of Systems Constitutional: ABSENT: chills, fever(s), headache(s), weight gain, weight loss Eyes: ABSENT: visual disturbances Ears: ABSENT: hearing changes Cardiovascular: ABSENT: chest pain, dyspnea on exertion, edema, orthropnea, palpitations Respiratory: PRESENT: as per HPI. ABSENT: cough, hemoptysis Gastrointestinal: ABSENT: abdominal pain, constipation, diarrhea, hematemesis, hematochezia, nausea, vomiting Genitourinary: ABSENT: dysuria, hematuria Musculoskeletal: PRESENT: as per HPI Integumentary: ABSENT: rash, wounds Neurological: ABSENT: abnormal gait, abnormal speech, confusion, dizziness, focal weakness, syncope Psychiatric: ABSENT: anxiety, depression, homidical ideation, suicidal ideation Endocrine: ABSENT: cold intolerance, heat intolerance, menstrual abnormalities, polydipsia, polyuria Hematologic/Lymphatic: ABSENT: easy bleeding, easy bruising, lymphadenopathy Physical Exam Vital Signs: Temp Pulse Resp BP Pulse Ox 97.8 F 109 H 16 119/77 93 11/05/20 04:50 11/05/20 04:50 11/05/20 04:50 11/05/20 04:50 11/05/20 04:50 Intake & Output 11/04/20 11/05/20 11/06/20 06:59 06:59 06:59 Intake Total 360 Output Total 500 Balance -140 Weight 63.2 kg General appearance: PRESENT: no acute distress, disheveled, well-developed, well-nourished Head exam: PRESENT: atraumatic, normocephalic Eye exam: PRESENT: conjunctiva pink, EOMI, PERRLA. ABSENT: scleral icterus Ear exam: PRESENT: normal external ear exam Mouth exam: PRESENT: moist, tongue midline Neck exam: PRESENT: full ROM. ABSENT: carotid bruit, JVD, lymphadenopathy, thyromegaly Respiratory exam: PRESENT: other - Patient on chronic oxygen Cardiovascular exam: PRESENT: RRR. ABSENT: diastolic murmur, rubs, systolic murmur Pulses: PRESENT: normal dorsalis pedis pul, +2 pedal pulses bilateral Vascular exam: PRESENT: normal capillary refill GI/Abdominal exam: PRESENT: normal bowel sounds, soft. ABSENT: distended, guarding, mass, organolmegaly, rebound, tenderness Rectal exam: PRESENT: deferred Musculoskeletal exam: PRESENT: other - Right lower extremity: Positive logroll. Moderate thigh swelling without change, intact plantarflexion/dorsiflexion. No sensory deficits. No calf tenderness. Neurological exam: PRESENT: alert, awake, oriented to person, oriented to place, oriented to time, oriented to situation, CN II-XII grossly intact. ABSENT: motor sensory deficit Psychiatric exam: PRESENT: appropriate affect, normal mood. ABSENT: homicidal ideation, suicidal ideation Skin exam: PRESENT: dry, intact, warm. ABSENT: cyanosis, rash Results Laboratory Results: 11/05/20 02:35 11/05/20 02:35 11/04/20 11/04/20 11/05/20 17:05 17:05 02:35 WBC 11.7 H 12.2 H RBC 4.21 4.17 Hgb 11.2 L 11.2 L Hct 34.9 L 34.9 L MCV 83 84 MCH 26.6 L 26.8 L MCHC 32.1 32.0 RDW 14.7 H 14.8 H Plt Count 218 213 Seg Neutrophils % 84.9 H 74.3 Sodium 131.7 L Potassium 4.7 Chloride 94 L Carbon Dioxide 36 H Anion Gap 2 L BUN 19 Creatinine 1.01 Est GFR ( Amer) > 60 Glucose 126 H Calcium 8.4 Magnesium Total Bilirubin AST Alkaline Phosphatase Total Protein Albumin Triglycerides Cholesterol LDL Cholesterol Direct VLDL Cholesterol HDL Cholesterol 11/05/20 02:35 WBC RBC Hgb Hct MCV MCH MCHC RDW Plt Count Seg Neutrophils % Sodium 133.2 L Potassium 4.4 Chloride 94 L Carbon Dioxide 36 H Anion Gap 3 L BUN 19 Creatinine 1.17 Est GFR ( Amer) 58 L Glucose 100 Calcium 8.6 Magnesium 2.0 Total Bilirubin 0.4 AST 25 Alkaline Phosphatase 68 Total Protein 5.0 L Albumin 2.8 L Triglycerides 198 H Cholesterol 182.15 LDL Cholesterol Direct 79 VLDL Cholesterol 39.6 H HDL Cholesterol 76 11/04/20 11/04/20 11/04/20 17:05 20:45 22:23 Creatine Kinase 69 Troponin I 0.287 0.312 11/05/20 11/05/20 02:35 02:35 Creatine Kinase 58 Troponin I 0.272 Impressions: Hip/Pelvis X-Ray 11/04/20 00:00 IMPRESSION: Acute displaced subcapital neck fracture of the right femur. There is no associated dislocation of the femoroacetabular joint. Chest X-Ray 11/04/20 16:49 IMPRESSION: NO ACUTE RADIOGRAPHIC FINDING IN THE CHEST. Status: Image reviewed by me - I have reviewed patient's radiographs consistent with displaced right femoral neck fracture Assessment & Plan - Diagnosis (1) Displaced fracture of right femoral neck Is this a current diagnosis for this admission?: Yes Plan: Patient sustained a right femoral neck fracture. Today we discussed treatment options given patient's preinjury ambulatory status I have recommended operative intervention which includes right hip hemiarthroplasty versus total hip arthroplasty. Plan will be to proceed with operative intervention today pending medical clearance. Anesthesia will review patient's chart if they deem patient stable for operative treatment will proceed today if they feel she requires fur ther medical optimization this will delay patient's surgery. Risk and benefits of the surgical procedure have been explained to the patient. These risks includeAnesthetic complications, excessive bleeding, infection, injury to surrounding nerves, vessels and tendons, bruising, healing difficulties, scar formation, hardware complication, posttraumatic arthritis and any unforseen complication. Patient is verbalized understanding consented for surgical procedure.
[2020-11-05 09:01] LABS: ARTERIAL BLOOD BASE EXCESS 8.6 mmol/L; ARTERIAL BLOOD HCO3 36.6 mmol/L (20-24); ARTERIAL BLOOD O2 SATURATION 93.2 % (94-98); ARTERIAL BLOOD PH 7.34 (7.35-7.45); ARTERIAL BLOOD PO2 73.2 mmHg (80-100); ARTERIAL BLOOD TOTAL CO2 38.8 mmol/L (21-25)
[2020-11-05 09:11] LABS: ARTERIAL BLOOD FIO2 32%
[2020-11-05 09:14] LABS: ARTERIAL BLOOD PCO2 69.9 mmHg (35-45)
--- NOTE | 2020-11-05 09:31 | PDOC CONSULTATION ---
Consultation Consult Date: 11/05/20 Attending physician:: OSMAN JANE Provider Consulted: SALENA DRAPER Consult reason:: Preoperative cardiovascular exam History of Present Illness Admission Date/PCP: 11/04/20 19:47 DASHA JAMES History of Present Illness: JULIO BACA is a 55 year old female The following active problems 1. COPD 2. Nicotine dependence in remission 3. Chronic respiratory failure 4. Congestive heart failure Patient had a mechanical fall. She states that she slipped on redundant length of silky pajamas resulting in a mechanical fall. There was no loss of consciousness. Patient's activities are significantly curtailed by COPD and respiratory distress on exertion but she does not report any chest pain or any suggestion of angina. No prior cardiac history other than questionable history of congestive heart failure for which he is on diuretic. He does not report stress testing. Lifelong cigarette smoker with sometimes 2 packs a day for over 30 years or more. Quit 5 to 7 weeks ago. No familial illnesses. Review of systems is positive for hip pain, recent fall. Dyspnea is also endorsed. Past Medical History Cardiac Medical History: Reports: Congestive Heart Failure - No details available., Hypertension Denies: Atrial Fibrillation, Coronary Artery Disease, DVT, Myocardial Infa rction, Hyperlipidema, Pulmonary Embolism Pulmonary Medical History: Reports: Asthma, Bronchitis, Chronic Obstructive Pulmonary Disease (COPD) - With chronic hypoxic respiratory failure on 3 L/min nasal oxygen, Pneumonia, Respiratory Failure - Chronic respiratory failure with hypoxia EENT Medical History: Reports: None Neurological Medical History: Reports: Seizures - Single seizure in the remote past Endocrine Medical History: Reports: None, Diabetes Mellitus Type 1 Denies: Diabetes Mellitus Type 2, Hyperthyroidism, Hypothyroidism Renal/ Medical History: Reports: None Malignancy Medical History: Reports: None GI Medical History: Reports: None, Other - History of esophageal stricture requiring dilatation. Denies: Cirrhosis, Crohn's Disease, Gastroesophageal Reflux Disease, Hepatitis, Ulcerative Colitis Musculoskeltal Medical History: Reports: Arthritis Denies: Gout Skin Medical History: Reports: None Denies: Eczema, Psoriasis Psychiatric Medical History: Reports: Bipolar Disorder, Depression Traumatic Medical History: Reports: None Hematology: Reports: None Denies: Anemia, Bleeding Tendencies Infectious Medical History: Reports: Methicillin-Resistant Staph Aureus Past Surgical History Past Surgical History: Reports: Section, Orthopedic Surgery - right knee Denies: Hysterectomy, Pacemaker Social History Lives with: Family Smoking Status: Unknown if Ever Smoked Electronic Cigarette use?: No Frequency of Alcohol Use: None Hx Recreational Drug Use: Yes Drugs: Marijuana Hx Prescription Drug Abuse: No Family History Family History: COPD, Hypertension, Other - Patient denies Anesthesia risks. denies: CAD, CVA, DM, Malignancy Parental Family History Reviewed: Yes - No familial illnesses reported to me Children Family History Reviewed: NA Sibling(s) Family History Reviewed.: NA Medication/Allergy Home Medications: Bupropion HCl [Wellbutrin Xl 300mg 24hr Tablet] 300 mg PO QAM 08/22/19 Citalopram Hydrobromide [Celexa 40 mg Tablet] 40 mg PO DAILY 08/22/19 Risperidone [Risperdal] 6 mg PO DAILY 08/22/19 Furosemide [Lasix 20 mg Tablet] 20 mg PO QAM 01/13/20 Amlodipine Besylate [Norvasc 5 mg Tablet] 5 mg PO DAILY 10/16/20 Budesonide [Pulmicort Neb 0.5 mg/2 ml Ampul] 0.5 mg NEB RTQ12 10/16/20 Buspirone HCl 7.5 mg PO BID 10/16/20 Perforomist 1 vial NEB RTBID 10/16/20 Albuterol Sulfate [Proair HFA Inhalation Aerosol 8.5 gm MDI] 2 puff IH Q4HP PRN 11/04/20 Ipratropium/Albuterol Sulfate [Duoneb 3 ml Ampul] 3 ml NEB RTQ6HP PRN 11/04/20 Lisinopril [Zestril] 40 mg PO DAILY 11/04/20 Lorazepam [Ativan 0.5 mg Tablet] 0.5 mg PO Q6HP PRN 11/04/20 Morphine Sulfate 0.25 ml PO Q4HP PRN 11/04/20 Ondansetron [Zofran Odt 4 mg Tablet] 4 mg PO Q8HP PRN 11/04/20 Prednisone [Deltasone 20 mg Tablet] 10 mg PO DAILY 11/04/20 Allergies/Adverse Reactions: No Known Allergies Allergy (Verified 09/07/20 02:07) Review of Systems Cardiovascular: ABSENT: as per HPI, chest pain, dyspnea on exertion, edema, orthropnea, palpitations, other Respiratory: PRESENT: cough, dyspnea Gastrointestinal: ABSENT: as per HPI, abdominal pain, bloating, coffee ground emesis, constipation, diarrhea, dysphagia, heartburn, hematemesis, hematochezia, melena, nausea, vomiting, other Musculoskeletal: PRESENT: back pain, deformity, other Neurological: ABSENT: as per HPI, abnormal gait, abnormal movements, abnormal speech, confusion, convulsions, dizziness, focal weakness, frequent falls, lack of coordination, memory loss, numbness, paresthesias, restless legs, syncope, tingling, tremor(s), vertigo, weakness, other Endocrine: ABSENT: as per HPI, cold intolerance, flushing, heat intolerance, menstrual abnormalities, polydipsia, polyphagia, polyuria, other Physical Exam Vital Signs: Temp Pulse Resp BP Pulse Ox 98.1 F 99 17 129/73 H 100 11/05/20 08:00 11/05/20 08:00 11/05/20 08:00 11/05/20 08:00 11/05/20 08:00 Intake & Output 11/04/20 11/05/20 11/06/20 06:59 06:59 06:59 Intake Total 360 Output Total 500 Balance -140 Weight 63.2 kg General appearance: PRESENT: disheveled, mild distress, well-developed, well-nourished Head exam: PRESENT: atraumatic, normocephalic Eye exam: PRESENT: conjunctiva pink, EOMI Mouth exam: PRESENT: moist Neck exam: PRESENT: full ROM, JVD Respiratory exam: PRESENT: symmetrical Cardiovascular exam: PRESENT: RRR, +S1, +S2 Pulses: PRESENT: normal radial pulses GI/Abdominal exam: PRESENT: soft Rectal exam: PRESENT: deferred Musculoskeletal exam: PRESENT: deformity Neurological exam: PRESENT: alert, awake, oriented to person, oriented to place, oriented to time, oriented to situation Psychiatric exam: PRESENT: appropriate affect Skin exam: PRESENT: dry, intact, normal color Results Laboratory Results: 11/05/20 02:35 11/05/20 02:35 11/04/20 11/04/20 11/05/20 17:05 17:05 02:35 WBC 11.7 H 12.2 H RBC 4.21 4.17 Hgb 11.2 L 11.2 L Hct 34.9 L 34.9 L MCV 83 84 MCH 26.6 L 26.8 L MCHC 32.1 32.0 RDW 14.7 H 14.8 H Plt Count 218 213 Seg Neutrophils % 84.9 H 74.3 Carbonic Acid HCO3/H2CO3 Ratio ABG pH ABG pCO2 ABG pO2 ABG HCO3 ABG O2 Saturation ABG Base Excess FiO2 Sodium 131.7 L Potassium 4.7 Chloride 94 L Carbon Dioxide 36 H Anion Gap 2 L BUN 19 Creatinine 1.01 Est GFR ( Amer) > 60 Glucose 126 H Calcium 8.4 Magnesium Total Bilirubin AST Alkaline Phosphatase Total Protein Albumin Triglycerides Cholesterol LDL Cholesterol Direct VLDL Cholesterol HDL Cholesterol TSH 11/05/20 11/05/20 11/05/20 02:35 02:35 08:42 WBC RBC Hgb Hct MCV MCH MCHC RDW Plt Count Seg Neutrophils % Carbonic Acid 2.10 H HCO3/H2CO3 Ratio 17:1 ABG pH 7.34 L ABG pCO2 69.9 H* ABG pO2 73.2 L ABG HCO3 36.6 H ABG O2 Saturation 93.2 L ABG Base Excess 8.6 FiO2 32% Sodium 133.2 L Potassium 4.4 Chloride 94 L Carbon Dioxide 36 H Anion Gap 3 L BUN 19 Creatinine 1.17 Est GFR ( Amer) 58 L Glucose 100 Calcium 8.6 Magnesium 2.0 Total Bilirubin 0.4 AST 25 Alkaline Phosphatase 68 Total Protein 5.0 L Albumin 2.8 L Triglycerides 198 H Cholesterol 182.15 LDL Cholesterol Direct 79 VLDL Cholesterol 39.6 H HDL Cholesterol 76 TSH 0.89 11/04/20 11/04/20 11/04/20 17:05 20:45 22:23 Creatine Kinase 69 Troponin I 0.287 0.312 11/05/20 11/05/20 02:35 02:35 Creatine Kinase 58 Troponin I 0.272 EKG Comments: X-ray hip and pelvis Acute disc placed subcapital neck fracture right femur. No associated dislocation Twelve-lead EKG 11/04/2020. 1718. Independently viewed by me. Sinus rhythm, incomplete right bundle branch block, QTC is 451 ms. Cardiac troponin 0.287 0.312 0.272 Impressions: Hip/Pelvis X-Ray 11/04/20 00:00 IMPRESSION: Acute displaced subcapital neck fracture of the right femur. There is no associated dislocation of the femoroacetabular joint. Chest X-Ray 11/04/20 16:49 IMPRESSION: NO ACUTE RADIOGRAPHIC FINDING IN THE CHEST. Assessment & Plan - Diagnosis (1) Chronic obstructive pulmonary disease Qualifiers: COPD type: unspecified COPD Qualified Code(s): J44.9 - Chronic obstructive pulmonary disease, unspecified Is this a current diagnosis for this admission?: Yes Plan: Heavy smoking history COPD with home oxygen requirement This will probably impact her care the most. Suggest watching respiratory status (2) Closed right hip fracture Qualifiers: Encounter type: initial encounter Qualified Code(s): S72.001A - Fracture of unspecified part of neck of right femur, initial encounter for closed fracture Is this a current diagnosis for this admission?: Yes Plan: Has been evaluated orthopedics (3) Elevated troponin Is this a current diagnosis for this admission?: Yes Plan: Elevated troponin in the setting of chronic hypoxia and respiratory distress as well as recent fall No indication of angina by history. EKG is nondiagnostic for myocardial ischemia Mildly elevated troponins. Unlikely to be acute coronary syndrome. However underlying coronary artery disease cannot be excluded reliably and she is not a candidate for working this up in the current context. Such work-up is unlikely to mitigate or decrease any risk perceived from surgery. (4) Preop cardiovascular exam Plan: Patient is an acceptable risk for planned surgery without further restratification. Elevated troponins likely a reflection of chronic hypoxic respiratory failure and probable underlying elevated PA pressures rather than acute coronary syndrome Clearly there is no evidence of chest pain and nondiagnostic EKG supports this. Mild elevated troponins in the setting are of unclear clinical significance Further restratification is unlikely to improve the outcome of planned surgical procedure. For due diligence since coronary artery disease cannot be reliably excluded in the current context would recommend aspirin statin and beta-blockers when and if feasible. Patient has a diagnosis of congestive heart failure by history and is on maintenance diuretic. Would recommend we continue that. Presently she appears euvolemic by exam and by history.
[2020-11-05] MEDS: BUPROPION HCL 75 MG TABLET PO SCH ×2 (10:06→22:10)
[2020-11-05] MEDS: AMLODIPINE BESYLATE 10 MG TABLET PO SCH (10:06)
[2020-11-05] MEDS: LISINOPRIL 10 MG TABLET PO SCH (10:06)
[2020-11-05] MEDS: CITALOPRAM HYDROBROMIDE 20 MG TABLET PO SCH (10:06)
[2020-11-05] MEDS: ASPIRIN 81 MG TABLET, CHEWABLE PO SCH (10:07)
[2020-11-05] MEDS: ENOXAPARIN SODIUM INJ 40 MG/0.4 ML DISP.SYRIN SUBCUT SCH (10:07)
[2020-11-05] MEDS: ATORVASTATIN CALCIUM 40 MG TABLET PO SCH (11:48)
[2020-11-05] MEDS: FLUTICASONE/UMECLIDIN/VILANTER 100-62.5-25 MCG/DOSE IH SCH (11:48)
--- NOTE | 2020-11-05 14:16 | EKG REPORT ---
SEVERITY:- ABNORMAL ECG - SINUS TACHYCARDIA RIGHT BUNDLE BRANCH BLOCK : Confirmed by: Sarika Tafoya MD 05-Nov-2020 14:15:10
[2020-11-05] MEDS: MORPHINE SULFATE 10 MG/5 ML ORAL SOLUTION UDCUP PO PRN ×2 (15:33→19:56)
--- NOTE | 2020-11-05 17:13 | Progress Note ---
Provider Note Provider Note: After discussing the case with anesthesia and the medical team. Patient has likely met maximal optimization at this point. Furthermore cardiology does not feel a cardiac event occurred and is likely secondary to her chronic COPD. Patient understands risk and benefits of surgical procedure specifically the high risk of anesthesia after discussing the risks we will proceed with operative intervention. Plan will be for right hip hemiarthroplasty on 11/06/[address] Lopez.
--- NOTE | 2020-11-05 17:41 | XCELERA REPORT ---
[address] [address] Transthoracic Echocardiogram Report Name: JULIO BACA Age: 55 yrs Gender: Female : 1965 Patient Status: Inpatient Patient Location: [facility]^A Study Date: 11/05/2020 10:54 AM History: Preop cardiac evaluation COPD NSTEMI Height: 65 in Weight: 143 lb BSA: 1.7 m2 Procedure: A complete two-dimensional transthoracic echocardiogram was performed (2D, M-mode, spectral and color flow Doppler). The study was technically difficult with many images being suboptimal in quality. Reason For Study: ELEVATED TROPONIN Previous Evaluation: A previous study was performed on 08/22/2019 LVEF was normal. History: Preop cardiac evaluation COPD NSTEMI. Smoker: previous. Ordering Physician: OSMAN JANE Performed By: Sandra Daniels Interpretation Summary Left ventricular systolic function is low normal. The Ejection Fraction estimate is 50-55% The right ventricle is normal in size and function. There is a trace amount of mitral regurgitation The aortic valve opens well. There is a trace amount of tricuspid regurgitation There is no pericardial effusion. MMode/2D Measurements & Calculations RVDd: 1.9 cm LVIDd: 4.0 cm FS: 28.0 % Ao root diam: 2.4 cm IVSd: 0.87 cm LVIDs: 2.8 cm EDV(Teich): 68.1 ml Ao root area: 4.4 cm2 LVPWd: 0.81 cm ESV(Teich): 30.7 ml EF(Teich): 54.8 % Doppler Measurements & Calculations MV E max samantha: MV dec slope: LV V1 max PG: PA V2 max: 58.6 cm/sec 425.4 cm/sec2 3.3 mmHg 82.4 cm/sec MV A max samantha: MV dec time: 0.14 sec LV V1 max: PA max P.3 cm/sec 91.2 cm/sec 2.7 mmHg MV E/A: 0.96 TR max samantha: 171.9 cm/sec TR max P.8 mmHg Left Ventricle The left ventricle is normal in size. There is normal left ventricular wall thickness. Left ventricular systolic function is low normal. The Ejection Fraction estimate is 50-55%. Doppler measurements suggest impaired left ventricular relaxation, which is associated with grade I/IV or mild diastolic dysfunction. Regional wall motion abnormalities cannot be excluded due to limited visualization. Right Ventricle The right ventricle is normal in size and function. Atria The right atrium is mildly dilated. The left atrial size is normal. The interatrial septum is intact with no evidence for an atrial septal defect. There is no Doppler evidence for an interatrial shunt. Mitral Valve The mitral valve is grossly normal. There is no mitral valve stenosis. There is a trace amount of mitral regurgitation. Aortic Valve The aortic valve is sclerotic and shows some degree of functional abnormality. The aortic valve opens well. Doppler on Aortiv valve is poorly done, Visually there is no stenosis and valve is seen to open well. Tricuspid Valve There is a trace amount of tricuspid regurgitation. Tricuspid regurgitation jet envelope not well defined to measure RV systolic pressure accurately. Pulmonic Valve The pulmonic valve is normal in structure and function. There is no pulmonic valvular stenosis. There is a trace or physiologic amount of pulmonic regurgitation. Great Vessels The aortic root is normal size. The inferior vena cava appeared normal and decreased > 50% with respiration (RAP 5-10 mmHg). Effusions There is no pericardial effusion. : OSMAN JANE Anil
--- NOTE | 2020-11-05 18:32 | PDOC PROGRESS REPORT ---
Subjective Date:: 11/05/20 Subjective:: Pain is uncontrolled. Breathing is at baseline. She denies CP. Reason For Visit: RIGHT HIP FRACTURE/ ABNORMAL TROPONIN Physical Exam Vital Signs: Temp Pulse Resp BP Pulse Ox 99.0 F 100 17 147/76 H 95 11/05/20 16:46 11/05/20 16:46 11/05/20 16:46 11/05/20 16:46 11/05/20 16:46 Intake & Output 11/04/20 11/05/20 11/06/20 06:59 06:59 06:59 Intake Total 360 Output Total 500 Balance -140 Weight 63.2 kg General appearance: PRESENT: no acute distress, cooperative Eye exam: ABSENT: scleral icterus Mouth exam: PRESENT: moist Throat exam: ABSENT: post pharyngeal erythema Neck exam: ABSENT: JVD Respiratory exam: PRESENT: clear to auscultation caity, prolonged expiratory phas, unlabored Cardiovascular exam: PRESENT: RRR GI/Abdominal exam: PRESENT: normal bowel sounds, soft. ABSENT: tenderness Neurological exam: PRESENT: alert, oriented to person, oriented to place, oriented to time, oriented to situation Psychiatric exam: PRESENT: appropriate affect Skin exam: ABSENT: jaundice, rash Results Laboratory Results: 11/05/20 02:35 11/05/20 02:35 11/05/20 11/05/20 11/05/20 02:35 02:35 02:35 WBC 12.2 H RBC 4.17 Hgb 11.2 L Hct 34.9 L MCV 84 MCH 26.8 L MCHC 32.0 RDW 14.8 H Plt Count 213 Seg Neutrophils % 74.3 Carbonic Acid HCO3/H2CO3 Ratio ABG pH ABG pCO2 ABG pO2 ABG HCO3 ABG O2 Saturation ABG Base Excess FiO2 Sodium 133.2 L Potassium 4.4 Chloride 94 L Carbon Dioxide 36 H Anion Gap 3 L BUN 19 Creatinine 1.17 Est GFR ( Amer) 58 L Glucose 100 Calcium 8.6 Magnesium 2.0 Total Bilirubin 0.4 AST 25 Alkaline Phosphatase 68 Total Protein 5.0 L Albumin 2.8 L Triglycerides 198 H Cholesterol 182.15 LDL Cholesterol Direct 79 VLDL Cholesterol 39.6 H HDL Cholesterol 76 TSH 0.89 11/05/20 08:42 WBC RBC Hgb Hct MCV MCH MCHC RDW Plt Count Seg Neutrophils % Carbonic Acid 2.10 H HCO3/H2CO3 Ratio 17:1 ABG pH 7.34 L ABG pCO2 69.9 H* ABG pO2 73.2 L ABG HCO3 36.6 H ABG O2 Saturation 93.2 L ABG Base Excess 8.6 FiO2 32% Sodium Potassium Chloride Carbon Dioxide Anion Gap BUN Creatinine Est GFR ( Amer) Glucose Calcium Magnesium Total Bilirubin AST Alkaline Phosphatase Total Protein Albumin Triglycerides Cholesterol LDL Cholesterol Direct VLDL Cholesterol HDL Cholesterol TSH 11/04/20 11/04/20 11/04/20 17:05 20:45 22:23 Creatine Kinase 69 Troponin I 0.287 0.312 11/05/20 11/05/20 11/05/20 02:35 02:35 09:01 Creatine Kinase 58 Troponin I 0.272 0.245 Impressions: Hip/Pelvis X-Ray 11/04/20 00:00 IMPRESSION: Acute displaced subcapital neck fracture of the right femur. There is no associated dislocation of the femoroacetabular joint. Chest X-Ray 11/04/20 16:49 IMPRESSION: NO ACUTE RADIOGRAPHIC FINDING IN THE CHEST. Assessment and Plan - Diagnosis (1) Stage 4 very severe COPD by GOLD classification Is this a current diagnosis for this admission?: Yes (2) Chronic respiratory failure with hypoxia and hypercapnia Is this a current diagnosis for this admission?: Yes (3) Displaced fracture of right femoral neck Is this a current diagnosis for this admission?: Yes (4) Elevated troponin Is this a current diagnosis for this admission?: Yes (5) Preop cardiovascular exam Is this a current diagnosis for this admission?: Yes (6) Hyponatremia Is this a current diagnosis for this admission?: Yes - Plan Summary Summary: Patient was admitted with right hip fracture requiring surgery. She is currently receiving home hospice services for advanced, end-stage COPD with chronic hypoxemia and hypercapnia. She understands that her time left is limited and wishes to maximize her quality of life as much as possible. The patient is chest pain-free and has no EKG sign of ongoing cardiac ischemia. She does not require further cardiac evaluation prior to surgery. Cardiology consultation has been completed. She was a long time smoker and likely has some amount of CAD. She understands that she is a high risk surgical candidate and wishes to proceed with surgery to improve her quality of life. The patient is fully alert and oriented and she is able to understand the difficult situation. Case discussed with cardiology and orthopedic surgery. Pain medications adjusted. NPO past MN (surgery planned for tomorrow). - Time Time Spent with patient: 35 or more minutes Anticipated Discharge Disposition: Home with Hospice Anticipated Discharge Timeframe: within 48 hours
--- NOTE | 2020-11-05 18:33 | ADVANCED CARE ---
- Diagnosis (1) Stage 4 very severe COPD by GOLD classification Diagnosis Current: Yes (2) Chronic respiratory failure with hypoxia and hypercapnia Diagnosis Current: Yes (3) Displaced fracture of right femoral neck Diagnosis Current: Yes (4) Elevated troponin Diagnosis Current: Yes (5) Preop cardiovascular exam Diagnosis Current: Yes (6) Hyponatremia Diagnosis Current: Yes Attendance: patient and her Resuscitation Status: Do Not Resuscitate Discussion: She is currently receiving home hospice services for advanced, end-stage COPD with chronic hypoxemia and hypercapnia. She understands that her time left is limited and wishes to maximize her quality of life as much as possible. Code status: DNR/DNI. Time Spent: >20 minutes
[2020-11-06] MEDS: MORPHINE SULFATE 10 MG/5 ML ORAL SOLUTION UDCUP PO PRN ×4 (03:31→17:32)
--- NOTE | 2020-11-06 08:13 | PDOC PROGRESS REPORT ---
Subjective Date:: 11/06/20 Subjective:: Patient seen and examined this morning. She has pain but is currently well cont rolled pain medications. No acute events overnight. Reason For Visit: RIGHT HIP FRACTURE/ ABNORMAL TROPONIN Physical Exam Vital Signs: Temp Pulse Resp BP Pulse Ox 98.6 F 107 H 16 150/81 H 99 11/06/20 00:40 11/06/20 02:00 11/06/20 00:40 11/06/20 00:40 11/06/20 00:40 Intake & Output 11/05/20 11/06/20 11/07/20 06:59 06:59 06:59 Intake Total 360 1300 Output Total 500 100 Balance -140 1200 Weight 63.2 kg 63.2 kg Physical Exam: No acute distress, alert and oriented x3. Patient on continuous nasal cannula Right lower extremity -Pulses 2+ distally -Compartments soft -Sensation grossly intact to L3-4-5 S1 -Motor grossly intact to EHL TA gastroc and quad -Leg shortened, externally rotated pain with any attempted motion. Results Laboratory Results: 11/05/20 02:35 11/05/20 02:35 11/05/20 08:42 Carbonic Acid 2.10 H HCO3/H2CO3 Ratio 17:1 ABG pH 7.34 L ABG pCO2 69.9 H* ABG pO2 73.2 L ABG HCO3 36.6 H ABG O2 Saturation 93.2 L ABG Base Excess 8.6 FiO2 32% 11/04/20 11/04/20 11/04/20 17:05 20:45 22:23 Creatine Kinase 69 Troponin I 0.287 0.312 11/05/20 11/05/20 11/05/20 02:35 02:35 09:01 Creatine Kinase 58 Troponin I 0.272 0.245 Impressions: Hip/Pelvis X-Ray 11/04/20 00:00 IMPRESSION: Acute displaced subcapital neck fracture of the right femur. There is no associated dislocation of the femoroacetabular joint. Chest X-Ray 11/04/20 16:49 IMPRESSION: NO ACUTE RADIOGRAPHIC FINDING IN THE CHEST. Assessment & Plan - Diagnosis (1) Displaced fracture of right femoral neck Is this a current diagnosis for this admission?: Yes Plan: -Current plan will be for a right hip hemiarthroplasty to be performed tomorrow. Patient is to be placed n.p.o. tonight Hold all chemical DVT prophylaxis at midnight tonight Bedrest -Continue current pain medication. -Medicine to further optimize lung function prior to surgery. We will pursue spinal anesthesia Ancef on-call to the OR. - Time Time Spent with patient: Less than 15 minutes
[2020-11-06] MEDS ORDERED: DEXTROSE 50%-WATER 25 GM/50 ML DISP.SYRIN IV PRN ×2 (08:34)
[2020-11-06] MEDS ORDERED: DEXTROSE 40% GEL 15 GM TUBE PO PRN ×2 (08:34)
[2020-11-06] MEDS ORDERED: GLUCAGON,HUMAN RECOMB 1 MG INJ SUBCUT PRN (08:34)
[2020-11-06] MEDS: FLUTICASONE/UMECLIDIN/VILANTER 100-62.5-25 MCG/DOSE IH SCH (09:33)
[2020-11-06] MEDS: ENOXAPARIN SODIUM INJ 40 MG/0.4 ML DISP.SYRIN SUBCUT SCH (09:33)
[2020-11-06] MEDS: LISINOPRIL 10 MG TABLET PO SCH (09:34)
[2020-11-06] MEDS: CITALOPRAM HYDROBROMIDE 20 MG TABLET PO SCH (09:34)
[2020-11-06] MEDS: ATORVASTATIN CALCIUM 40 MG TABLET PO SCH (09:34)
[2020-11-06] MEDS: ASPIRIN 81 MG TABLET, CHEWABLE PO SCH (09:34)
[2020-11-06] MEDS: BUPROPION HCL 75 MG TABLET PO SCH ×2 (09:34→21:50)
[2020-11-06] MEDS: AMLODIPINE BESYLATE 10 MG TABLET PO SCH (09:34)
[2020-11-06] MEDS: HYDROMORPHONE HCL INJ/PF 2 MG/ML AMPULE IV PRN ×3 (10:53→20:09)
--- NOTE | 2020-11-06 13:56 | PDOC PROGRESS REPORT ---
Subjective Date:: 11/06/20 Subjective:: NAEO. Pain is controlled. Breathing is at baseline. Denies CP. Reason For Visit: RIGHT HIP FRACTURE/ ABNORMAL TROPONIN Physical Exam Vital Signs: Temp Pulse Resp BP Pulse Ox 97.6 F 106 H 17 117/66 95 11/06/20 12:55 11/06/20 12:55 11/06/20 12:55 11/06/20 12:55 11/06/20 12:55 Intake & Output 11/05/20 11/06/20 11/07/20 06:59 06:59 06:59 Intake Total 360 1300 240 Output Total 500 100 Balance -140 1200 240 Weight 63.2 kg 63.2 kg General appearance: PRESENT: no acute distress, cooperative Eye exam: ABSENT: scleral icterus Mouth exam: PRESENT: moist Throat exam: ABSENT: post pharyngeal erythema Neck exam: ABSENT: JVD Respiratory exam: PRESENT: clear to auscultation caity. ABSENT: wheezes Cardiovascular exam: PRESENT: RRR GI/Abdominal exam: PRESENT: normal bowel sounds, soft. ABSENT: tenderness Neurological exam: PRESENT: alert, awake, oriented to person, oriented to place, oriented to time, oriented to situation Psychiatric exam: PRESENT: appropriate affect Skin exam: ABSENT: rash Results Laboratory Results: 11/05/20 02:35 11/05/20 02:35 11/04/20 11/04/20 11/04/20 17:05 20:45 22:23 Creatine Kinase 69 Troponin I 0.287 0.312 11/05/20 11/05/20 11/05/20 02:35 02:35 09:01 Creatine Kinase 58 Troponin I 0.272 0.245 Impressions: Hip/Pelvis X-Ray 11/04/20 00:00 IMPRESSION: Acute displaced subcapital neck fracture of the right femur. There is no associated dislocation of the femoroacetabular joint. Chest X-Ray 11/04/20 16:49 IMPRESSION: NO ACUTE RADIOGRAPHIC FINDING IN THE CHEST. Assessment and Plan - Diagnosis (1) Stage 4 very severe COPD by GOLD classification Is this a current diagnosis for this admission?: Yes (2) Chronic respiratory failure with hypoxia and hypercapnia Is this a current diagnosis for this admission?: Yes (3) Displaced fracture of right femoral neck Is this a current diagnosis for this admission?: Yes (4) Elevated troponin Is this a current diagnosis for this admission?: Yes (5) Preop cardiovascular exam Is this a current diagnosis for this admission?: Yes (6) Hyponatremia Is this a current diagnosis for this admission?: Yes - Plan Summary Summary: Patient was admitted with right hip fracture requiring surgery. She is currently receiving home hospice services for advanced, end-stage COPD with chronic hypoxemia and hypercapnia. She understands that her time left is limited and wishes to maximize her quality of life as much as possible. The patient is chest pain-free and has no EKG signs of ongoing cardiac ischemia. She does not require further cardiac evaluation prior to surgery. Cardiology consultation has been completed. She was a long time smoker and likely has some amount of CAD. She understands that she is a high risk surgical candidate and wishes to proceed with surgery to improve her quality of life. The patient is fully alert and oriented and she is able to understand the difficult situation. There is nothing more that can be done to optimize her respiratory or cardiac status. She is euvolemic. She is on appropriate inhaler medications. NPO past MN (surgery planned for tomorrow). Hold Lovenox tomorrow morning in preparation for surgery. Code Status: DNR/DNI - Time Time Spent with patient: 35 or more minutes Anticipated Discharge Disposition: Home with Hospice Anticipated Discharge Timeframe: within 48 hours
[2020-11-06] MEDS: CEFAZOLIN SODIUM 2 GM in DEXTROSE 5%-WATER 100 ML IV SCH ×2 (15:06→21:50)
[2020-11-07] MEDS: HYDROMORPHONE HCL INJ/PF 2 MG/ML AMPULE IV PRN (00:22)
[2020-11-07] MEDS: CEFAZOLIN SODIUM 2 GM in DEXTROSE 5%-WATER 100 ML IV SCH ×3 (05:49→21:33)
[2020-11-07] MEDS ORDERED: PROPOFOL INJ 200 MG/20 ML VIAL IV ONE ×2 (06:51→10:10)
[2020-11-07] MEDS ORDERED: MIDAZOLAM 2 MG/2 ML INJ ONE ×2 (06:51→10:10)
[2020-11-07] MEDS ORDERED: FENTANYL CITRATE INJ/PF 100 MCG/2 ML AMPUL ONE (06:51)
[2020-11-07] MEDS ORDERED: MORPHINE SULFATE 10 MG/ML INJ ONE (10:10)
[2020-11-07] MEDS ORDERED: VANCOMYCIN HCL INJ 1000 MG VIAL ONE (10:12)
[2020-11-07] MEDS ORDERED: BUPIVACAINE HCL 0.25 % INJ/PF (2.5 MG/1 ML) 30 ML VIAL ONE (10:12)
[2020-11-07] MEDS ORDERED: KETOROLAC TROMETHAMINE INJ/PF 30 MG/1 ML SDV ONE (10:13)
[2020-11-07] MEDS ORDERED: EPINEPHRINE INJ/PF 1 MG/1 ML AMPULE ONE (10:16)
--- NOTE | 2020-11-07 10:36 | PDOC PROGRESS REPORT ---
Subjective Date:: 11/07/20 Subjective:: Patient seen and examined this morning. No acute events overnight. Eager to caballero ve surgery and began ambulating again. I discussed the case with the patient regarding risk benefits and potential outcomes. Family was at bedside and I answered all questions. Reason For Visit: RIGHT HIP FRACTURE/ ABNORMAL TROPONIN Physical Exam Vital Signs: Temp Pulse Resp BP Pulse Ox 98.8 F 105 H 18 131/74 H 99 11/07/20 10:14 11/07/20 10:14 11/07/20 10:14 11/07/20 10:14 11/07/20 10:14 Intake & Output 11/06/20 11/07/20 11/08/20 06:59 06:59 06:59 Intake Total 1300 836 Output Total 100 Balance 1200 836 Weight 63.2 kg 65.2 kg Physical Exam: No acute distress, alert and orient x3. On continuous nasal cannula. Right lower extremity -Pulses 2+ distally -Compartments soft -Sensation grossly intact to L3-4-5 S1 -Motor grossly intact to EHL TA gastroc and quad Leg shortened, externally rotated. Results Laboratory Results: 11/05/20 02:35 11/05/20 02:35 11/04/20 11/04/20 11/04/20 17:05 20:45 22:23 Creatine Kinase 69 Troponin I 0.287 0.312 11/05/20 11/05/20 11/05/20 02:35 02:35 09:01 Creatine Kinase 58 Troponin I 0.272 0.245 Impressions: Hip/Pelvis X-Ray 11/04/20 00:00 IMPRESSION: Acute displaced subcapital neck fracture of the right femur. There is no associated dislocation of the femoroacetabular joint. Chest X-Ray 11/04/20 16:49 IMPRESSION: NO ACUTE RADIOGRAPHIC FINDING IN THE CHEST. Assessment & Plan - Diagnosis (1) Displaced fracture of right femoral neck Is this a current diagnosis for this admission?: Yes Plan: Patient is scheduled for right hip hemiarthroplasty today Keep n.p.o. Hold all chemical DVT prophylaxis -At this point she is medically optimized and being evaluated by anesthesia After surgery the plan will be as follows. - 2 doses of Ancef postoperatively q 8 hours to complete 24 hours perioperatively -Weightbearing as tolerated, no precautions, encourage out of bed ANJELICA for ADL training - PT/OT -aspirin 325 daily for DVT prophylaxis for 6 weeks -multimodal pain management to avoid excessive narcotics, including gabapentin, tramadol, Toradol, acetaminophen. -Dressing should not be removed for 7 to 10 days until seen in the office -May shower with the dressing intact, if it starts to come off she should not get the incision wet. -Follow-up with Dr. Venu Lopez, orthopedic surgeon at [facility] for surgery, in 10 days. Call for an appointment. . [address], [place] [address] - Time Time Spent with patient: Less than 15 minutes
[2020-11-07] MEDS ORDERED: CEFAZOLIN INJ 1 GM VIAL ONE (11:03)
[2020-11-07] MEDS ORDERED: TRANEXAMIC ACID INJ/PF 1,000 MG/10 ML SDV ONE (11:10)
[2020-11-07] MEDS ORDERED: DIPHENHYDRAMINE HCL 50 MG/ML VIAL IV PRN (11:16)
[2020-11-07] MEDS ORDERED: OXYCODONE-ACETAMINOPHEN 5-325 MG TABLET PO PRN ×2 (11:16)
[2020-11-07] MEDS ORDERED: FENTANYL CITRATE INJ/PF 100 MCG/2 ML AMPUL IV PRN ×3 (11:16)
[2020-11-07] MEDS ORDERED: PROMETHAZINE HCL INJ 25 MG/1 ML VIAL IV PRN ×2 (11:16)
[2020-11-07] MEDS ORDERED: MORPHINE SULFATE 10 MG/ML INJ IV PRN (11:16)
--- NOTE | 2020-11-07 12:20 | Operative Report ---
Operative Report DATE OF SURGERY: 11/07/20 PREOPERATIVE DIAGNOSIS: Right placed femoral neck fracture POSTOPERATIVE DIAGNOSIS: Right displaced femoral neck fracture OPERATION: Right hip hemiarthroplasty SURGEON: PHOENIX THORPE JR ANESTHESIA: Spinal COMPLICATIONS: None ESTIMATED BLOOD LOSS: 50 cc PROCEDURE: The patient was brought to the operative suite where they underwent spinal anesthesia. After adequate anesthesia, they were placed supine on the operating table both legs were hung sterilely prepped with chlorhexidine. 2 g of Ancef was given preoperatively. After draping a standard sterile fashion an appropriate timeout was performed. A standard anterior incision was made with cautery through the soft tissue down to the tensor fascia. This was then sharply incised and then bluntly developed until reaching the crossing vasculature. These were cauterized and then with the assistance of retraction the hip capsule was isolated. An incision was made into the hip capsule with cautery and the fracture was exposed. A freshening neck cut was made at the appropriate level for stem implantation. The head was then removed and all debris within the capsule at this point was removed a trial implant was placed starting with a 46 and working her way to a 47 which had excellent fit. We then turned our attention to the femur which we carefully exposed. Starting with a box tender we then progressed broaching starting with a 7 and finally obtaining excellent fit at a 12. A standard offset trial with a -3 mm neck length was placed on the broach and reduced. This produced excellent fit, no impingement, minimal shuck, near equal if not slightly long leg length, and no position of instability throughout a full range of motion. Intraoperative fluoroscopy was utilized to confirm stem position which was excellent. After this the hip was dislocated the trials were removed and the wound was thoroughly irrigated with dilute Betadine solution. The final stem was implanted into a clean and dried, along with the unipolar head assembly. This was then reduced and again taken through a range of motion which demonstrated excellent stability and leg length. The wound was then irrigated with dilute betadyne solution, after this was evacuated and evaluated for any potential bleeding which was cauterized. The wound was irrigated again. The fascia was then closed with #2 barbed absorbable suture. The adipose layer was also closed with this suture, followed with 2-0 monocryl subcutaneous interrupted and finally 2-0 Monocryl running subcutaneously. An occlusive silver dressing was then applied. The drapes were removed and the patient was then transferred to PACU in stable condition.
[2020-11-07] MEDS: AMLODIPINE BESYLATE 10 MG TABLET PO SCH (13:15)
[2020-11-07] MEDS: LISINOPRIL 10 MG TABLET PO SCH (13:15)
[2020-11-07] MEDS: BUPROPION HCL 75 MG TABLET PO SCH ×2 (13:16→21:33)
[2020-11-07] MEDS: ATORVASTATIN CALCIUM 40 MG TABLET PO SCH (13:16)
[2020-11-07] MEDS: FLUTICASONE/UMECLIDIN/VILANTER 100-62.5-25 MCG/DOSE IH SCH (13:16)
[2020-11-07] MEDS: CITALOPRAM HYDROBROMIDE 20 MG TABLET PO SCH (13:16)
--- NOTE | 2020-11-07 13:58 | RADIOLOGY REPORT (SQ) ---
EXAM DESCRIPTION: NO CHG FLUORO; HIP IN OPERATING RM IMAGES COMPLETED DATE/TIME: 11/07/2020 1:48 pm REASON FOR STUDY: RIGHT HIP KHADIJAH ARTHROPLASTY ASSISTED WITH FLUORO IN OR COMPARISON: None. FLUOROSCOPY TIME: 0.1 minute 1 images saved to PACS. TECHNIQUE: Intra-operative images acquired during surgical procedure to evaluate progress. NUMBER OF IMAGES: 1 LIMITATIONS: None. FINDINGS: Fluoroscopic image centered over femoral component of hip arthroplasty. IMPRESSION: IMAGE(S) OBTAINED DURING PROCEDURE. COMMENT: Quality ID 145: Final reports for procedures using fluoroscopy that document radiation exp osure indices, or exposure time and number of fluorographic images (if radiation exposure indices are not available) Please consult full operative report of the attending physician for description of the procedure. TECHNICAL DOCUMENTATION: JOB ID: [id number] 2010 [employer]- All Rights Reserved Reading location - IP/workstation name: [email or web address]
--- NOTE | 2020-11-07 13:58 | RADIOLOGY REPORT (SQ) ---
EXAM DESCRIPTION: NO CHG FLUORO; HIP IN OPERATING RM IMAGES COMPLETED DATE/TIME: 11/07/2020 1:48 pm REASON FOR STUDY: RIGHT HIP KHADIJAH ARTHROPLASTY ASSISTED WITH FLUORO IN OR COMPARISON: None. FLUOROSCOPY TIME: 0.1 minute 1 images saved to PACS. TECHNIQUE: Intra-operative images acquired during surgical procedure to evaluate progress. NUMBER OF IMAGES: 1 LIMITATIONS: None. FINDINGS: Fluoroscopic image centered over femoral component of hip arthroplasty. IMPRESSION: IMAGE(S) OBTAINED DURING PROCEDURE. COMMENT: Quality ID 145: Final reports for procedures using fluoroscopy that document radiation exp osure indices, or exposure time and number of fluorographic images (if radiation exposure indices are not available) Please consult full operative report of the attending physician for description of the procedure. TECHNICAL DOCUMENTATION: JOB ID: [id number] 2010 [employer]- All Rights Reserved Reading location - IP/workstation name: [email or web address]
[2020-11-07] MEDS ORDERED: CEFAZOLIN 2 GM/D5W RTU 2 GM/50 ML RTUPB IV SCH (14:00)
[2020-11-07] MEDS: MORPHINE SULFATE 10 MG/5 ML ORAL SOLUTION UDCUP PO PRN ×2 (14:13→18:43)
--- NOTE | 2020-11-07 14:44 | RADIOLOGY REPORT (SQ) ---
EXAM DESCRIPTION: HIP RIGHT AP/LATERAL IMAGES COMPLETED DATE/TIME: 11/07/2020 2:07 pm REASON FOR STUDY: post op COMPARISON: None. NUMBER OF VIEWS: One view TECHNIQUE: Digital radiographic images of the pelvis post-procedure LIMITATIONS: None. FINDINGS: BONES: No worrisome or unexpected findings post-procedure. DEVICE: Right bipolar hip prosthesis. SOFT TISSUES: No worrisome findings. Expected postoperative soft tissue changes. IMPRESSION: SATISFACTORY POSTOPERATIVE PELVIS. TECHNICAL DOCUMENTATION: JOB ID: [id number] [employer]- All Rights Reserved Reading location - IP/workstation name: [email or web address]
--- NOTE | 2020-11-07 16:48 | PDOC PROGRESS REPORT ---
Subjective Date:: 11/07/20 Subjective:: MCKAYLAEO. Went to the OR today, tolerated well. Pain is controlled. She is working with PT this afternoon. Reason For Visit: RIGHT HIP FRACTURE/ ABNORMAL TROPONIN Physical Exam Vital Signs: Temp Pulse Resp BP Pulse Ox 98.2 F 106 H 17 122/69 99 11/07/20 16:00 11/07/20 16:00 11/07/20 16:00 11/07/20 16:00 11/07/20 16:00 Intake & Output 11/06/20 11/07/20 11/08/20 06:59 06:59 06:59 Intake Total 5272 304 8459 Output Total 100 100 Balance 1200 836 900 Weight 63.2 kg 65.2 kg General appearance: PRESENT: no acute distress, cooperative Eye exam: ABSENT: scleral icterus Mouth exam: PRESENT: moist Throat exam: ABSENT: post pharyngeal erythema Neck exam: ABSENT: JVD Respiratory exam: PRESENT: clear to auscultation caity, tachypnea Cardiovascular exam: PRESENT: RRR GI/Abdominal exam: PRESENT: normal bowel sounds, soft. ABSENT: tenderness Extremities exam: ABSENT: pedal edema Musculoskeletal exam: PRESENT: other - R hip surgical site bandage c/d/i Neurological exam: PRESENT: alert, awake, oriented to person, oriented to place, oriented to time, oriented to situation Psychiatric exam: PRESENT: appropriate affect Skin exam: ABSENT: rash Results Laboratory Results: 11/05/20 02:35 11/05/20 02:35 11/04/20 11/04/20 11/04/20 17:05 20:45 22:23 Creatine Kinase 69 Troponin I 0.287 0.312 11/05/20 11/05/20 11/05/20 02:35 02:35 09:01 Creatine Kinase 58 Troponin I 0.272 0.245 Impressions: Chest X-Ray 11/04/20 16:49 IMPRESSION: NO ACUTE RADIOGRAPHIC FINDING IN THE CHEST. Fluoroscopy 11/07/20 00:00 IMPRESSION: IMAGE(S) OBTAINED DURING PROCEDURE. Hip X-Ray 11/07/20 00:00 IMPRESSION: IMAGE(S) OBTAINED DURING PROCEDURE. Hip/Pelvis X-Ray 11/07/20 00:00 IMPRESSION: SATISFACTORY POSTOPERATIVE PELVIS. Assessment and Plan - Diagnosis (1) Stage 4 very severe COPD by GOLD classification Is this a current diagnosis for this admission?: Yes (2) Chronic respiratory failure with hypoxia and hypercapnia Is this a current diagnosis for this admission?: Yes (3) Displaced fracture of right femoral neck Is this a current diagnosis for this admission?: Yes (4) Elevated troponin Is this a current diagnosis for this admission?: Yes (5) Preop cardiovascular exam Is this a current diagnosis for this admission?: Yes (6) Hyponatremia Is this a current diagnosis for this admission?: Yes - Plan Summary Summary: Right displaced femoral neck fracture: s/p hip hemiarthroplasty on 11/07/2020. She tolerated surgery well. Awaiting PT consultation. Pain is controlled. * Weightbearing as tolerated, no precautions, encourage out of bed ANJELICA for ADL training * PT * aspirin 325 daily for DVT prophylaxis for 6 weeks * Dressing should not be removed for 7 to 10 days until seen in the office. May shower with the dressing intact, if it starts to come off she should not get the incision wet. * Follow-up with Dr. Venu Lopez, orthopedic surgeon at [facility] for surgery, in 10 days. Call for an appointment. . [address], [place] [address] Severe, End-Stage COPD: She is currently receiving home hospice services for advanced, end-stage COPD with chronic hypoxemia and hypercapnia. NSTEMI, type 2: demand ischemia due to pain and fall. Patient has remained chest pain-free and has had no EKG signs of cardiac ischemia. She does not require further cardiac evaluation prior to surgery. Cardiology consultation has been completed. She was a long time smoker and likely has some amount of CAD. ASA, statin and beta kishor therapy initiated. Hypertension: well controlled on current regimen. Code Status: DNR/DNI - Time Time Spent with patient: 35 or more minutes Anticipated Discharge Disposition: Home with Hospice Anticipated Discharge Timeframe: within 24 hours
[2020-11-07] MEDS: ACETAMINOPHEN 325 MG TABLET PO SCH (17:38)
[2020-11-07] MEDS ORDERED: METOPROLOL SUCCINATE 25 MG TAB.SR.24H PO SCH (22:00)
[2020-11-08] MEDS: MORPHINE SULFATE 10 MG/5 ML ORAL SOLUTION UDCUP PO PRN ×2 (00:05→14:39)
[2020-11-08] MEDS: CEFAZOLIN SODIUM 2 GM in DEXTROSE 5%-WATER 100 ML IV SCH ×2 (05:24→14:45)
[2020-11-08] MEDS: HYDROMORPHONE HCL INJ/PF 2 MG/ML AMPULE IV PRN ×2 (05:32→09:21)
--- NOTE | 2020-11-08 07:13 | PDOC PROGRESS REPORT ---
Subjective Date:: 11/08/20 Subjective:: Patient seen and examined his morning. Ambulating well. No complaints overnigh t or acute events. Reports overall feeling well and BM to get herself up out of bed comfortably. Pain well controlled. Reason For Visit: RIGHT HIP FRACTURE/ ABNORMAL TROPONIN Physical Exam Vital Signs: Temp Pulse Resp BP Pulse Ox 98.1 F 93 18 111/65 100 11/08/20 00:10 11/08/20 02:00 11/08/20 00:10 11/08/20 00:10 11/08/20 00:50 Intake & Output 11/07/20 11/08/20 11/09/20 06:59 06:59 06:59 Intake Total 836 1640 Output Total 100 Balance 836 1540 Weight 65.2 kg 64.9 kg Physical Exam: No acute distress, alert and orient x3, on continuous nasal cannula Right lower extremity -Pulses 2+ distally Dressings clean dry and intact -Compartments soft -Sensation grossly intact to L3-4-5 S1 -Motor grossly intact to EHL TA gastroc and quad Results Laboratory Results: 11/05/20 02:35 11/05/20 02:35 11/04/20 11/04/20 11/04/20 17:05 20:45 22:23 Creatine Kinase 69 Troponin I 0.287 0.312 11/05/20 11/05/20 11/05/20 02:35 02:35 09:01 Creatine Kinase 58 Troponin I 0.272 0.245 Impressions: Chest X-Ray 11/04/20 16:49 IMPRESSION: NO ACUTE RADIOGRAPHIC FINDING IN THE CHEST. Fluoroscopy 11/07/20 00:00 IMPRESSION: IMAGE(S) OBTAINED DURING PROCEDURE. Hip X-Ray 11/07/20 00:00 IMPRESSION: IMAGE(S) OBTAINED DURING PROCEDURE. Hip/Pelvis X-Ray 11/07/20 00:00 IMPRESSION: SATISFACTORY POSTOPERATIVE PELVIS. Assessment & Plan - Diagnosis (1) Displaced fracture of right femoral neck Is this a current diagnosis for this admission?: Yes Plan: Status post hemiarthroplasty postoperative day #1. Patient doing well at this time. Ambulating well. Vital signs are stable. Stable orthopedically for discharge when medically appropriate. - 2 doses of Ancef postoperatively q 8 hours to complete 24 hours perioperatively -Weightbearing as tolerated, no precautions, encourage out of bed ANJELICA for ADL training - PT/OT -aspirin 325 daily for DVT prophylaxis for 6 weeks -multimodal pain management to avoid excessive narcotics, including gabapentin, tramadol, Toradol, acetaminophen. -Dressing should not be removed for 7 to 10 days until seen in the office -May shower with the dressing intact, if it starts to come off she should not get the incision wet. -Follow-up with Dr. Venu Lopez, orthopedic surgeon at [facility] for surgery, in 10 days. Call for an appointment. . [address], [place] [address] - Time Time Spent with patient: Less than 15 minutes
[2020-11-08] MEDS: LISINOPRIL 10 MG TABLET PO SCH (09:19)
[2020-11-08] MEDS: ATORVASTATIN CALCIUM 40 MG TABLET PO SCH (09:19)
[2020-11-08] MEDS: AMLODIPINE BESYLATE 10 MG TABLET PO SCH (09:20)
[2020-11-08] MEDS: CITALOPRAM HYDROBROMIDE 20 MG TABLET PO SCH (09:20)
[2020-11-08] MEDS: ACETAMINOPHEN 325 MG TABLET PO SCH ×2 (09:20→14:38)
[2020-11-08] MEDS: BUPROPION HCL 75 MG TABLET PO SCH (09:20)
[2020-11-08] MEDS: FLUTICASONE/UMECLIDIN/VILANTER 100-62.5-25 MCG/DOSE IH SCH (09:26)
[2020-11-08] MEDS ORDERED: ASPIRIN 325 MG TABLET PO SCH (10:00)
--- NOTE | 2020-11-08 11:53 | PDOC PROGRESS REPORT ---
Subjective Date:: 11/08/20 Subjective:: Patient examined. She had surgery for right hip fracture yesterday which was un eventful. Resting comfortably. No chest pain or dyspnea reported. Reason For Visit: RIGHT HIP FRACTURE/ ABNORMAL TROPONIN Physical Exam Vital Signs: Temp Pulse Resp BP Pulse Ox 98.1 F 96 19 106/58 L 97 11/08/20 07:41 11/08/20 07:41 11/08/20 07:41 11/08/20 07:41 11/08/20 07:41 Intake & Output 11/07/20 11/08/20 11/09/20 06:59 06:59 06:59 Intake Total 836 1640 Output Total 100 Balance 836 1540 Weight 65.2 kg 64.9 kg General appearance: PRESENT: no acute distress, disheveled, well-developed, well-nourished Head exam: PRESENT: atraumatic, normocephalic Eye exam: PRESENT: conjunctiva pink, EOMI Teeth exam: PRESENT: poor dentation Respiratory exam: PRESENT: crackles, decreased breath sounds, prolonged expiratory phas, symmetrical, unlabored Cardiovascular exam: PRESENT: +S1, +S2 Pulses: PRESENT: normal radial pulses GI/Abdominal exam: PRESENT: soft Rectal exam: PRESENT: deferred Neurological exam: PRESENT: alert, awake, oriented to person, oriented to place, oriented to time, oriented to situation Psychiatric exam: PRESENT: appropriate affect Skin exam: PRESENT: dry, intact Results Laboratory Results: 11/05/20 02:35 11/05/20 02:35 11/04/20 11/04/20 11/04/20 17:05 20:45 22:23 Creatine Kinase 69 Troponin I 0.287 0.312 11/05/20 11/05/20 11/05/20 02:35 02:35 09:01 Creatine Kinase 58 Troponin I 0.272 0.245 Impressions: Chest X-Ray 11/04/20 16:49 IMPRESSION: NO ACUTE RADIOGRAPHIC FINDING IN THE CHEST. Fluoroscopy 11/07/20 00:00 IMPRESSION: IMAGE(S) OBTAINED DURING PROCEDURE. Hip X-Ray 11/07/20 00:00 IMPRESSION: IMAGE(S) OBTAINED DURING PROCEDURE. Hip/Pelvis X-Ray 11/07/20 00:00 IMPRESSION: SATISFACTORY POSTOPERATIVE PELVIS. Assessment & Plan - Diagnosis (1) Chronic obstructive pulmonary disease Qualifiers: COPD type: unspecified COPD Qualified Code(s): J44.9 - Chronic obstructive pulmonary disease, unspecified Is this a current diagnosis for this admission?: Yes Plan: Advanced COPD Ideally stop smoking. But she is indicated that very difficult. (2) Closed right hip fracture Qualifiers: Encounter type: initial encounter Qualified Code(s): S72.001A - Fracture of unspecified part of neck of right femur, initial encounter for closed fracture Is this a current diagnosis for this admission?: Yes Plan: Status post operative repair and doing well. Surgery was uncomplicated no cardiac complications (3) Elevated troponin Is this a current diagnosis for this admission?: Yes Plan: Unlikely clinical tolerated surgery without difficulty. No indication for ischemic evaluation. Echocardiogram with preserved ejection fraction and no significant wall motion abnormalities or valve lesion
[2020-11-08 15:23] VITALS: BP 131/74
--- NOTE | 2020-11-08 15:33 | PDOC TRANSFER SUMMARY ---
General - Admit/Disc Date/PCP Admission Date/Primary Care Provider: 11/04/20 19:47 NAS JAMES-[place] Discharge Date: 11/08/20 - Discharge Diagnosis (1) COPD (chronic obstructive pulmonary disease) Is this a current diagnosis for this admission?: Yes (2) Chronic obstructive pulmonary disease Is this a current diagnosis for this admission?: Yes (3) Chronic respiratory failure with hypoxia Is this a current diagnosis for this admission?: Yes (4) Chronic respiratory failure with hypoxia and hypercapnia Is this a current diagnosis for this admission?: Yes (5) Closed right hip fracture Is this a current diagnosis for this admission?: Yes (6) Displaced fracture of right femoral neck Is this a current diagnosis for this admission?: Yes (7) Elevated troponin Is this a current diagnosis for this admission?: Yes (8) Preop cardiovascular exam Is this a current diagnosis for this admission?: Yes - Additional Information Resuscitation Status: Do Not Resuscitate Discharge Diet: As Tolerated, Regular Discharge Activity: Activity As Tolerated, Balance Activity w/Rest Prescriptions: Aspirin [Aspirin 81 mg Chewable Tablet] 81 mg PO BID #60 tab.chew Bupropion HCl [Bupropion Xl] 150 mg PO DAILY #30 tab.er.24h Citalopram Hydrobromide [Celexa 20 mg Tablet] 20 mg PO DAILY #30 tablet Home Medications: Amlodipine Besylate [Norvasc 5 mg Tablet] 5 mg PO DAILY 10/16/20 Budesonide [Pulmicort Neb 0.5 mg/2 ml Ampul] 0.5 mg NEB RTQ12 10/16/20 Buspirone HCl 7.5 mg PO BID 10/16/20 Perforomist 1 vial NEB RTBID 10/16/20 Albuterol Sulfate [Proair HFA Inhalation Aerosol 8.5 gm MDI] 2 puff IH Q4HP PRN 11/04/20 Ipratropium/Albuterol Sulfate [Duoneb 3 ml Ampul] 3 ml NEB RTQ6HP PRN 11/04/20 Lisinopril [Zestril] 40 mg PO DAILY 11/04/20 Lorazepam [Ativan 0.5 mg Tablet] 0.5 mg PO Q6HP PRN 11/04/20 Morphine Sulfate 0.25 ml PO Q4HP PRN 11/04/20 Ondansetron [Zofran Odt 4 mg Tablet] 4 mg PO Q8HP PRN 11/04/20 Aspirin [Aspirin 81 mg Chewable Tablet] 81 mg PO BID #60 tab.chew 11/08/20 Bupropion HCl [Bupropion Xl] 150 mg PO DAILY #30 tab.er.24h 11/08/20 Citalopram Hydrobromide [Celexa 20 mg Tablet] 20 mg PO DAILY #30 tablet 11/08/20 History of Present Illness Admission Date/PCP: 11/04/20 19:47 NAS JAMES-[facility] History of Present Illness: JULIO BACA is a 55 year old female Hospital Course Hospital Course: Per Previous Physician: "JULIO BACA is a 55 year old female The patient is ambulatory. 2 days ago she fell at home. She fell on her right hip. Ever since then she is unable to walk. Because of the persistent severe right hip area pain and inability to walk she came to the emergency department. She was found to have a displaced right subcapital femoral neck fracture. She does not have any other complaint except the right hip area pain which actually controlled with intravenous hydromorphone. To me she denies having any chest pain or shortness of breath earlier she mentions some chest pain and a troponin was run which is slightly elevated. Clinically the patient does not appear to have any kind of ongoing cardiac ischemia. She has chronic shortness of breath and on chronic oxygen,she did not appear to be in any respiratory distress. She had no arrhythmia. Her blood pressure is stable. Patient has advanced COPD and chronic hypoxic respiratory failure on 24/7 oxygen 3 L/min via nasal cannula. Since she quit smoking about a month ago her respiratory status is better. She has no increased wheezing, coughing or other acute respiratory symptoms. Patient enrolled in home hospice about 1-1/2-week ago. She would like to be actively treated at this point and she would like to be full code. She is pleasant and cooperative and has good understanding of her problems. She never had coronary artery disease, never had any cardiac work-up. She was told having congestive heart failure and taking 20 mg furosemide daily. Does not know more details about this problem." On day of discharge, patient requesting to go home with hospice. She was on hospice prior to admission and would like to go back on this. She has end-stage COPD. We will give her 81 mg aspirin twice daily for DVT prophylaxis. I believe she is too high of a bleeding/fall risk to give her anything stronger than that especially considering the sedating medications she will be taking on hospice. She can follow-up with her PCP and orthopedic surgeon as needed. Per Previous Physician: "(1) Closed right hip fracture Qualifiers: Encounter type: initial encounter Qualified Code(s): S72.001A - Fracture of unspecified part of neck of right femur, initial encounter for closed fracture Is this a current diagnosis for this admission?: Yes Plan: Patient will need surgery. Orthopedic consultation was requested. Because of the slight elevated troponin the patient may need cardiology evaluation, repeat troponin, telemetry monitoring, echocardiogram. Hopefully surgery can be done on Wednesday, 06 November. I started DVT prophylaxis with Lovenox tonight, this should be discontinued 24 hours prior to surgery. She is on mechanical prophylaxis as well. (2) Elevated troponin Is this a current diagnosis for this admission?: Yes Plan: The patient has mildly elevated troponin but she is chest pain-free and EKG is not suggestive of ongoing cardiac ischemia. Total CK is pending, in case the CK significantly elevated the troponin is probably related to skeletal muscle contusion. If the CK is not significantly elevated the patient probably has some troponin leak. 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 Repeat troponin. I ordered her aspirin. Echocardiogram. Cardiology consultation was requested. The patient has some questionable history of congestive heart failure. I do not find any previous documentation of ejection fraction. At present the patient does not appear to be any heart failure. I am going to hold her furosemide. (3) Congestive heart failure Qualifiers: Heart failure type: unspecified Heart failure chronicity: chronic Qualified Code(s): I50.9 - Heart failure, unspecified Is this a current diagnosis for this admission?: Yes Plan: The patient carries a diagnosis of congestive heart failure. I do not find echocardiogram reports. I do not find any specifics about her heart failure the medical record. The patient seems to be fully compensated. I am going to hold furosemide. Echocardiogram was ordered. (4) Chronic respiratory failure with hypoxia Is this a current diagnosis for this admission?: Yes Plan: Continue oxygen therapy. Her respiratory status seems to be stable, at baseline. (5) COPD (chronic obstructive pulmonary disease) Qualifiers: COPD type: emphysema Emphysema type: unspecified Qualified Code(s): J43.9 - Emphysema, unspecified Is this a current diagnosis for this admission?: Yes Plan: She has advanced COPD. No sign of COPD exacerbation. She does have some wheezing but it is chronic. She quit smoking about a month ago, since then she is feeling better. Continue bronchodilators. (6) Hypertension Qualifiers: Hypertension type: essential hypertension Qualified Code(s): I10 - Essential (primary) hypertension Is this a current diagnosis for this admission?: Yes Plan: Continue her usual blood pressure medications. (7) Bipolar 1 disorder Is this a current diagnosis for this admission?: Yes Plan: I resumed her antidepressants. She is not quite sure about rest of her psychiatric medications. Tomorrow medication list will be updated in the morning." Physical Exam Vital Signs: Temp Pulse Resp BP Pulse Ox 98.3 F 88 17 105/64 100 11/08/20 11:26 11/08/20 11:26 11/08/20 11:26 11/08/20 11:26 11/08/20 11:26 Intake & Output 11/07/20 11/08/20 11/09/20 06:59 06:59 06:59 Intake Total 836 1640 356 Output Total 100 Balance 836 1540 356 Weight 65.2 kg 64.9 kg Exam: General appearance: PRESENT: no acute distress, thin, chronically ill-appearing white female Head exam: PRESENT: atraumatic, normocephalic Eye exam: PRESENT: conjunctiva pink. ABSENT: scleral icterus Mouth exam: PRESENT: moist Respiratory exam: PRESENT: Chronic poor air movement, clear to auscultation caity. ABSENT: rales, rhonchi, wheezes Cardiovascular exam: PRESENT: RRR. ABSENT: diastolic murmur, rubs, systolic murmur GI/Abdominal exam: PRESENT: normal bowel sounds, soft. ABSENT: distended, guarding, mass, organolmegaly, rebound, tenderness Neurological exam: PRESENT: alert, awake, oriented to person, oriented to place, oriented to time, oriented to situation Psychiatric exam: PRESENT: appropriate affect, normal mood Skin exam: PRESENT: dry, intact, warm Results Laboratory Results: 11/05/20 02:35 11/05/20 02:35 11/04/20 11/04/20 11/04/20 17:05 20:45 22:23 Creatine Kinase 69 Troponin I 0.287 0.312 11/05/20 11/05/20 11/05/20 02:35 02:35 09:01 Creatine Kinase 58 Troponin I 0.272 0.245 Impressions: Chest X-Ray 11/04/20 16:49 IMPRESSION: NO ACUTE RADIOGRAPHIC FINDING IN THE CHEST. Fluoroscopy 11/07/20 00:00 IMPRESSION: IMAGE(S) OBTAINED DURING PROCEDURE. Hip X-Ray 11/07/20 00:00 IMPRESSION: IMAGE(S) OBTAINED DURING PROCEDURE. Hip/Pelvis X-Ray 11/07/20 00:00 IMPRESSION: SATISFACTORY POSTOPERATIVE PELVIS. Transfer Plan - Disposition Transfer Plan: home with hospice - Time Spent with Patient Time spent with patient: Greater than 30 Minutes Qualifiers PATIENT BEING DISCHARGED WITH ANY OF THE FOLLOWING DIAGNOSIS: No Plan Discharge Plan: home with hospice 81mg ASA BID X30d for dvt ppx Time Spent: Greater than 30 Minutes
== END 2020-11-08 16:30 | disposition hospice, home (50) | DRG 522 ==
LOC: ER 15:44 → EH 19:47 → INTOOBSV 19:47 → OBSVTOIN 19:47 → 4N 21:18
PROVIDERS: ADMIT Internal Medicine; ATTEND Internal Medicine
PROC: 0SRR0JZ Replacement of Right Hip Joint, Femoral Surface with Synthetic Substitute, Open Approach (ICD-10-PCS; principal; 2020-11-07 10:00)
DX: S72.011A Unspecified intracapsular fracture of right femur, initial encounter for closed fracture (principal); J96.11 Chronic respiratory failure with hypoxia; E87.1 Hypo-osmolality and hyponatremia; J96.12 Chronic respiratory failure with hypercapnia; W01.0XXA Fall on same level from slipping, tripping and stumbling without subsequent striking against object, initial encounter; R77.8 Other specified abnormalities of plasma proteins; I11.0 Hypertensive heart disease with heart failure; I50.9 Heart failure, unspecified; Z20.828 Contact with and (suspected) exposure to other viral communicable diseases; J43.9 Emphysema, unspecified; Y92.009 Unspecified place in unspecified non-institutional (private) residence as the place of occurrence of the external cause; Z99.81 Dependence on supplemental oxygen; Z87.891 Personal history of nicotine dependence; M19.90 Unspecified osteoarthritis, unspecified site; F31.9 Bipolar disorder, unspecified; Z82.49 Family history of ischemic heart disease and other diseases of the circulatory system; Z79.899 Other long term (current) drug therapy; Z79.51 Long term (current) use of inhaled steroids; Z66 Do not resuscitate
CPT/HCPCS: 01210; 36415; 36600; 71045; 80048; 80053; 80061; 82550; 82803; 83036; 83735; 84443; 84484; 85025; 93005; 93010; 93306; 99285; 0241U; C9803; J0171; J0690; J1170; J1650; J1885; J2250; J2270; J2704; J3010; J3370; J3490; J7060